=== PATIENT | male | born 1940 | race Caucasian/White ===

== ENCOUNTER 2018-06-17 11:30 | Outpatient (RCR) | payer SELFPAY | END 2018-06-18 23:59 | disposition home or self-care (01) | LOC: CR 11:30 | PROVIDERS: PCP Family Medicine; Visit Provider Family Medicine | DX: Z51.89 Encounter for other specified aftercare (principal) ==

== ENCOUNTER 2018-06-21 03:12 | Outpatient (RCR) | payer SELFPAY | END 2018-07-18 23:59 | disposition home or self-care (01) | LOC: CR 03:12 | PROVIDERS: PCP Family Medicine; Visit Provider Family Medicine | DX: Z51.89 Encounter for other specified aftercare (principal) ==

== ENCOUNTER 2018-07-15 07:00 | Outpatient (RCR) | payer SELFPAY | END 2018-07-18 23:59 | disposition home or self-care (01) | LOC: CR 07:00 | PROVIDERS: PCP Family Medicine; Visit Provider Family Medicine | DX: Z51.89 Encounter for other specified aftercare (principal) ==

== ENCOUNTER 2018-08-17 07:00 | Outpatient (RCR) | payer SELFPAY | END 2018-08-18 23:59 | disposition home or self-care (01) | LOC: CR 07:00 | PROVIDERS: PCP Family Medicine; Visit Provider Family Medicine | DX: Z51.89 Encounter for other specified aftercare (principal) ==

== ENCOUNTER 2018-09-14 07:00 | Outpatient (RCR) | payer SELFPAY | END 2018-09-17 23:59 | disposition home or self-care (01) | LOC: CR 07:00 | PROVIDERS: PCP Family Medicine; Visit Provider Family Medicine | DX: Z51.89 Encounter for other specified aftercare (principal) ==

== ENCOUNTER 2018-10-14 15:02 | Outpatient (RCR) | payer SELFPAY | END 2018-10-18 23:59 | disposition home or self-care (01) | LOC: CR 15:02 | PROVIDERS: PCP Family Medicine; Visit Provider Family Medicine | DX: Z51.89 Encounter for other specified aftercare (principal) ==

== ENCOUNTER 2018-10-26 10:48 | Outpatient (REF) | payer MEDICARE, SELFPAY ==
[2018-10-26 21:32] LABS: Anion Gap 9.6 mmol/L (3-11); BUN 28 mg/dL (7-18); CO2 28.4 mmol/L (21.0-32.0); CREATININE 1.38 mg/dL (0.70-1.30); Calcium 9.7 mg/dL (8.5-10.1); Chloride 104 mmol/L (98-107); Glucose 106 mg/dL (70-100); Potassium 4.5 mmol/L (3.5-5.1); Sodium 142 mmol/L (136-145)
[2018-10-26 22:53] LABS: Hemoglobin A1C 5.1 % (4.5-6.2)
== END 2018-10-26 11:08 ==
LOC: NCHCN 10:48
PROVIDERS: PCP Family Medicine; Visit Provider Family Medicine
DX: I10 Essential (primary) hypertension (principal); R73.9 Hyperglycemia, unspecified; R91.8 Other nonspecific abnormal finding of lung field
CPT/HCPCS: 80048; 83036

== ENCOUNTER 2018-11-05 09:18 | Outpatient (REF) | payer MEDICARE, SELFPAY ==
[2018-11-05 19:32] LABS: CREATININE 1.24 mg/dL (0.70-1.30); Estimated GFR 56.68 (mL/min/1.73m2)
== END 2018-11-05 09:38 ==
LOC: NCHCN 09:18
PROVIDERS: PCP Family Medicine; Visit Provider Family Medicine
DX: I10 Essential (primary) hypertension (principal)
CPT/HCPCS: 82565

== ENCOUNTER 2018-11-12 00:38 | Outpatient (CLI) | payer MEDICARE, SELFPAY ==
--- NOTE | 2018-11-12 09:32 | DI.CT_ITS ---
SYMPTOMS/DIAGNOSIS: LUNG NODULE, R91.8 CT SCAN OF THE CHEST: CT scan of the chest was performed following the uneventful administration of intravenous contrast material. Comparison examination is 06/09/16. The visualized thyroid gland appears grossly unremarkable. There is atherosclerosis of the thoracic aorta but no aneurysmal dilatation is present. The heart size is within normal limits. No significant pericardial effusion is seen. Coronary artery calcifications are present. No evidence of significant thoracic adenopathy is appreciated. No pleural effusion or pneumothorax is identified. Note is made of an infrarenal abdominal aortic aneurysm measuring 4.7 cm transverse by 4.7 cm AP. Note is made of diverticulosis of the colon but no evidence of acute diverticulitis. The patient is status post cholecystectomy. No noncalcified pulmonary nodules are seen. There are mild central lobular and paraseptal emphysematous changes in the lungs. There is scarring in the left lingula. No focal consolidating infiltrates are present. Mild dependent atelectatic changes are seen in the lung bases. The tracheobronchial tree is unremarkable. Degenerative changes are seen in the spine. There is a left convex scoliosis of the thoracolumbar spine. There is an old stable compression deformity in a mid thoracic vertebral body. IMPRESSION: 1. No evidence of a pulmonary nodule or thoracic adenopathy. 2. Mild pulmonary emphysema. 3. 4.7 cm infrarenal abdominal aortic aneurysm.
[2018-11-12] MEDS: Omnipaque 350 MG/ML 100 ML BTL IJ (09:35)
[2018-11-12] MEDS: Normal Saline Flush 10 ML SYR IVP ×2 (09:36)
== END 2018-11-12 00:58 ==
PROVIDERS: PCP Family Medicine; Visit Provider Family Medicine
DX: R91.8 Other nonspecific abnormal finding of lung field (principal); I71.4 Abdominal aortic aneurysm, without rupture; K57.30 Diverticulosis of large intestine without perforation or abscess without bleeding; J43.9 Emphysema, unspecified
CPT/HCPCS: 71260; J3490

== ENCOUNTER 2018-11-18 07:00 | Outpatient (RCR) | payer SELFPAY | END 2018-11-18 23:59 | disposition home or self-care (01) | LOC: CR 07:00 | PROVIDERS: PCP Family Medicine; Visit Provider Family Medicine | DX: Z51.89 Encounter for other specified aftercare (principal) ==

== ENCOUNTER 2018-12-16 12:39 | Outpatient (RCR) | payer SELFPAY | END 2018-12-16 23:59 | disposition home or self-care (01) | LOC: CR 12:39 | PROVIDERS: PCP Family Medicine; Visit Provider Family Medicine | DX: Z51.89 Encounter for other specified aftercare (principal) ==

== ENCOUNTER 2019-01-13 07:00 | Outpatient (RCR) | payer SELFPAY | END 2019-01-16 23:59 | disposition home or self-care (01) | LOC: CR 07:00 | PROVIDERS: PCP Family Medicine; Visit Provider Family Medicine | DX: Z51.89 Encounter for other specified aftercare (principal) ==

== ENCOUNTER 2019-02-15 07:00 | Outpatient (RCR) | payer SELFPAY | END 2019-02-15 23:59 | disposition home or self-care (01) | LOC: CR 07:00 | PROVIDERS: PCP Family Medicine; Visit Provider Family Medicine | DX: Z51.89 Encounter for other specified aftercare (principal) ==

== ENCOUNTER 2019-03-17 07:00 | Outpatient (RCR) | payer SELFPAY | END 2019-03-18 23:59 | disposition home or self-care (01) | LOC: CR 07:00 | PROVIDERS: PCP Family Medicine; Visit Provider Family Medicine | DX: Z51.89 Encounter for other specified aftercare (principal) ==

== ENCOUNTER 2019-04-14 11:19 | Outpatient (RCR) | payer SELFPAY | END 2019-04-17 23:59 | disposition home or self-care (01) | LOC: CR 11:19 | PROVIDERS: PCP Family Medicine; Visit Provider Family Medicine | DX: Z51.89 Encounter for other specified aftercare (principal) ==

== ENCOUNTER 2019-04-18 12:24 | Outpatient (RCR) | payer SELFPAY | END 2019-05-18 23:59 | disposition home or self-care (01) | LOC: CR 12:24 | PROVIDERS: PCP Family Medicine; Visit Provider Family Medicine | DX: Z51.89 Encounter for other specified aftercare (principal) ==

== ENCOUNTER 2019-05-15 10:14 | Emergency (ER) | payer MEDICARE, SELFPAY ==
[2019-05-15] VITALS (18 sets, daily range): BP systolic 109–128; BP diastolic 68–78; PULSE 66–118; RESP 15; TEMP 37.6; O2SAT 95–100
--- NOTE | 2019-05-15 10:19 | NUR.NOTE ---
Nursing Note: pt had stents placed in his left renal artery on the . catheter removed no complications void test passed on Thursday pt developed bilateral flank pain that has progressed to today 06/28
--- NOTE | 2019-05-15 10:37 | DI.CT_ITS ---
SYMPTOM/DIAGNOSIS: FEVER, RECENT AAA REPAIR, RECENT FRANCES, ? PYELO CT ABDOMEN AND PELVIS: CT abdomen and pelvis was performed following the uneventful administration of intravenous contrast material. No acute findings are seen in the lung bases. The liver is normal in size. No suspicious hepatic mass is seen. There is focal fatty infiltration adjacent to the hepatic ligamentum teres. The portal, superior mesenteric and splenic veins are patent. The patient is status post cholecystectomy. Stable mild dilatation of the common bile duct. The pancreas and peripancreatic soft tissues are unremarkable as are the spleen and adrenal glands. The kidneys show normal and symmetric enhancement. There are multiple hypodensities in the kidneys. They are too small for further characterization but likely reflect cysts. There is focal thickening and air and fluid seen in the superior aspect of the urinary bladder. There is air seen within the urinary bladder which may represent recent catheterization. There is an unruptured 5.4 x 5.2 cm infra-renal abdominal aortic aneurysm. This lies just proximal to the aortic and right iliac stents. There is an air fluid collection overlying the right iliopsoas muscle measuring 8.2 x 5.5 x 8.1 cm. There does not appear to be any high density material within the fluid collection to suggest contrast. There is extensive diverticulosis of the colon but no evidence of acute diverticulitis. The remainder of the bowel is unremarkable. No significant abdominal or pelvic adenopathy, ascites or pneumoperitoneum is present. There is a small fat containing umbilical hernia. Degenerative changes are seen in the spine. There is a right convex scoliotic curvature of the lumbar spine. The prostate gland is enlarged. Urology consult may be considered for further evaluation, IMPRESSION: 1. 8.2 x 5.5 x 8.1 cm air fluid collection anterior to the right iliopsoas muscle. This may represent a hematoma, abscess seroma or possible urinoma. 2. Air and fluid seen within the wall of the superior aspect of the urinary bladder. Infectious or inflammatory process should be considered. Abscess cannot be excluded. 3. Unruptured infero-abdominal aortic aneurysm measuring 5.4 x 5.2 cm. It lies just proximal to the aortic stent. 4. A distal aortic and right iliac artery stents. Results were discussed with Judy Kaminski of the Emergency Department on 05/16/19
--- NOTE | 2019-05-15 10:38 | ED.GENADUL_ITS ---
Discharge Plan Disposition Patient Disposition: [facility] Condition: Stable Discharge Details Chief Complaint: FlankPain Clinical Impression: Abscess, retroperitoneal Primary Care Provider: Sheila Fontanez V ED Provider: Ernst Schwab Home Meds and New Rx's Prescriptions: No Action aspirin [Lo-Dose Aspirin] 81 MG tablet,delayed release (DR/EC) 81 mg PO DAILY RF: 0 multivitamin Tablet 1 tab PO DAILY RF: 0 sertraline 100 mg Tablet 100 mg PO DAILY RF: 0 simvastatin 10 mg Tablet 10 mg PO DAILY RF: 0 nitroglycerin 0.4 mg Tablet, Sublingual 0.4 mg SUBLINGUAL Q5M PRNRF: 0 losartan-hydrochlorothiazide 50-12.5 mg Tablet 1 tab PO DAILY RF: 0 cephalexin 250 mg Tablet 250 mg PO BID RF: 0 acetaminophen 500 mg Tablet 500 mg PO Q4H PRNRF: 0 hydromorphone 2 mg Tablet 2 mg PO Q6H PRNRF: 0 ibuprofen 200 mg Tablet 200 mg PO Q6H PRNRF: 0 calcium carbonate [Calcium 600] 600 mg calcium (1,500 mg) Tablet 600 mg PO BID RF: 0 glucosamine sulfate 500 mg Capsule 500 mg PO BID RF: 0 docusate sodium [Colace] 100 mg Capsule 100 mg PO DAILY RF: 0 Medical Decision Making 79 yo mack with hx of cad, aaa, who underwent elective juxtarenal AAA repair on 05/03/19 at [facility] [place] and had a brian drain left in place and is on cephalexin until this is removed, and also had urinary retention so had san placed and had voiding trial last week with [facility] [place] urology that was successful, who comes in with bilateral pain at cva area for 2 days and a fever starting today. He arrives in no distress and states pain improved with tylenol and has no pain here. He denies abdominal pain or chest pain or cough. He does have bilateral cva tenderness on exam , no evidence of infection at his incision sites and serosanguinous fluid in the brian drain. I suspect urinary source for his symptoms of fever and flank pain, will obtain imaging to eval for other potential causes such as abscess in the abdomen. no cough or other symptoms to suggest pna pt's ua shows possible uti, will order cipro labs show wbc of 33, remains stable hd. CT shows retroperitoneal abscess so I changed cipro to zosyn to treat the abscess and also the possible uti. will discuss with [facility] [place] vascular spoke with vascular surgery fellow at [facility] [place] who wants patient to go to their ED so they can eval. Dr. Garces is the accepting ED provider for the transfer Differential Diagnosis pyelo, uti, abscess Medical Records Medical records reviewed: Yes I reviewed the patient's medical records. Imaging Data Radiologic Study: Attestation: I personally reviewed and interpreted this imaging study as follows: Imaging: CT Scan Radiologist's impression: IMPRESSION: 1. 8.2 x 5.5 x 8.1 cm fluid collection with bubbles of air anterior to the right iliopsoas may represent evolving hematoma or abscess or seroma.. 2. Unruptured infrarenal aortic aneurysm 5.36 x 5.22 cm. Just distal to the aneurysm is a aortic and right iliac bypass. 3. The prostate is enlarged, greater than 6 cm. Recommend urology consult. Lab Data Lab results reviewed: Yes I reviewed the patient's lab results. HPI General Mode of arrival: wheelchair . Date/Time Provider Initiated Documentation: 05/15/19 10:25 . Limitations to Documentation: no limitations . Information obtained by: patient . History of Present Illness 79 year old M presents to the emergency department with the chief complaint of fever, described as moderate, Patient started experiencing this day(s) (1) and it has been constant. No relieving factors improve symptom(s), Patient did receive the following treatments prior to arrival, none Related Data Home Medications Medication Instructions Recorded Confirmed aspirin [Lo-Dose Aspirin] 81 mg PO DAILY 08/24/13 05/15/19 acetaminophen 500 mg PO Q4H PRN 05/15/19 05/15/19 calcium carbonate [Calcium 600] 600 mg PO BID 05/15/19 05/15/19 cephalexin 250 mg PO BID 05/15/19 05/15/19 docusate sodium [Colace] 100 mg PO DAILY 05/15/19 05/15/19 glucosamine sulfate 500 mg PO BID 05/15/19 05/15/19 hydromorphone 2 mg PO Q6H PRN 05/15/19 05/15/19 ibuprofen 200 mg PO Q6H PRN 05/15/19 05/15/19 losartan-hydrochlorothiazide 1 tab PO DAILY 05/15/19 05/15/19 multivitamin 1 tab PO DAILY 05/15/19 05/15/19 nitroglycerin 0.4 mg SUBLINGUAL Q5M PRN 05/15/19 05/15/19 sertraline 100 mg PO DAILY 05/15/19 05/15/19 simvastatin 10 mg PO DAILY 05/15/19 05/15/19 Allergies Allergy/AdvReac Type Severity Reaction Status Date / Time codeine Allergy head fuzzy Unverified 05/15/19 10:24 meperidine HCl [From Demerol] Allergy confusion Unverified 05/15/19 10:24 Sulfa (Sulfonamide Allergy Agitation Unverified 05/15/19 10:24 Antibiotics) lisinopril AdvReac Mild cough Unverified 05/15/19 10:24 levofloxacin [From Levaquin] AdvReac Unverified 05/15/19 10:24 General Stated Complaint: FlankPain KIARA: 3 Review of Systems Review of Systems All systems reviewed & are unremarkable except as noted in HPI and below Constitutional Denies weakness Cardiovascular Denies chest pain and Denies dyspnea Respiratory Denies cough and Denies dyspnea Gastrointestinal Denies abdominal pain, Denies nausea and Denies vomiting Musculoskeletal Denies joint swelling Neurologic Denies weakness Psychiatric Denies depression PFSH Social History Smoking/Tobacco Use Status: Former Tobacco Use Alcohol Intake: never Drug use: Never Substance use type: does not use Do you feel safe at home: Yes Do you feel safe in your relationship?: Yes Exam Const General: no acute distress Orientation: alert HENMT Head: normal to inspection Ears: external ears normal General nose exam: external nose normal Mouth: moist mucous membranes Eyes General: appearance normal, both eyes and all related structures Neck Neck: normal visual inspection Resp Effort & Inspection: normal respiratory effort and able to speak in complete sentences Cardio Rate: regular rate Skin General skin exam: no rashes or lesions noted Neuro General: alert and oriented x3 Extrem General: normal to inspection Psych Mental Status: mental status grossly normal Course Vital Signs Temperature 37.6 C H 05/15/19 10:22 Pulse 66 05/15/19 10:22 Respiratory Rate 15 05/15/19 10:22 Blood Pressure 115/68 05/15/19 10:22 Pulse Oximetry 98 05/15/19 10:22 Temperature 37.6 C H 05/15/19 10:22 Temperature Source Oral 05/15/19 10:22 Pulse 66 05/15/19 10:22 Respiratory Rate 15 05/15/19 10:22 Respiratory Effort 05/15/19 10:25 Blood Pressure 115/68 05/15/19 10:22 Blood Pressure Position Sitting 05/15/19 10:22 Pulse Oximetry 98 05/15/19 10:22 Oxygen Delivery Method Room Air 05/15/19 10:22 Oxygen Flow Rate 0 05/15/19 10:22 Pain Level 9 05/15/19 10:22 Lab/Test Results Lab/Test Results: 05/15/19 10:28 Urine - Bladder Aspirate Urine Culture - Pending
[2019-05-15 10:39] LABS: Bilirubin Negative (Negative); Blood Moderate (Negative); Clarity Cloudy (Clear); Glucose Negative (Negative); Ketones Negative (Negative); Leukocyte Esterase Large (Negative); Nitrite Negative (Negative); Specific Gravity 1.015 (1.005-1.025); Urobilinogen 0.2 EU/dL (Up TO 0.2); pH 6.5 (5-8)
[2019-05-15 10:53] LABS: C & S Indicated? C&S Done As Ordered; WBC >50 HPF (0-5)
[2019-05-15 10:57] LABS: Lactate-non-spesis 1.6 mmol/l (0.6-1.4)
[2019-05-15] MEDS: Normal Saline 1,000 ML 1000 ML IV (10:59)
[2019-05-15 11:02] LABS: Abs Immature Grans 0.17 k/cumm (0.0-0.09); Basophils % 0.1; HCT 35.7 % (40.0-50.0); HGB 12.4 g/dL (13.5-17.5); Immature Grans % 0.5; Lymphocytes % 2.3; Mean Corp. HGB Concentration 34.7 g/dL (32.0-36.0); Mean Corpuscular Hemoglobin 32.6 pg (27.0-33.0); Mean Corpuscular Volume 93.9 fL (80-95); Monocytes % 5.6; Neutrophils % 91.5; Platelet Count 399 x1000/uL (130-400); RBC Distribution Width 13.5 % (11.8-14.1)
[2019-05-15 11:08] LABS: Absolute Basophil Count 0.03 k/cumm (0.0-0.2); Absolute Lymphocyte Count 0.78 k/cumm (1.2-3.4); White Blood Cell Count 33.88 k/cumm (4.4-10.8)
[2019-05-15] MEDS: Omnipaque 350 MG/ML 100 ML BTL IJ (11:14)
[2019-05-15 11:16] LABS: Diff Comment Agrees w/ Instrument; RBC Morphology Normal
[2019-05-15 11:18] LABS: ALT 43 U/L (12-78); AST 24 U/L (15-37); Alkaline Phosphatase 102 U/L (46-116); Anion Gap 14.5 mmol/L (3-11); BUN 21 mg/dL (7-18); Bilirubin, Total 1.1 mg/dL (0.2-1.0); CO2 24.5 mmol/L (21.0-32.0); CREATININE 1.42 mg/dL (0.70-1.30); Calcium 9.6 mg/dL (8.5-10.1); Chloride 100 mmol/L (98-107); Estimated GFR 48.34 (mL/min/1.73m2); Glucose 157 mg/dL (70-100); Sodium 139 mmol/L (136-145); Total Protein 7.9 g/dL (6.4-8.2)
[2019-05-15 11:19] LABS: Potassium 2.9 mmol/L (3.5-5.1)
--- NOTE | 2019-05-15 11:39 | DI.VRAD_ITS ---
EXAM: CT Abdomen and Pelvis With Contrast EXAM DATE/TIME: 05/15/2019 10:38 AM CLINICAL HISTORY: 79 years old, male; Fever and other: Recent aa repair; Prior surgery; Surgery type: Aa repair, recent san TECHNIQUE: Imaging protocol: Axial computed tomography images of the abdomen and pelvis with intravenous contrast. Coronal and sagittal reformatted images were created and reviewed. COMPARISON: CR RT HIP COMPLETE AP PELVIS 02/28/2014 9:40 AM FINDINGS: Liver: Normal. No mass. Gallbladder and bile ducts: Cholecystectomy Pancreas: Normal. No ductal dilation. Spleen: Normal. No splenomegaly. Adrenals: Normal. No mass. Kidneys and ureters: Multiple low attenuation nodules in both kidneys. Some are cysts. Some are too small to characterize. Stomach and bowel: Significant diverticulosis of the colon. No martha diverticulitis. Appendix: No evidence of appendicitis. Intraperitoneal space: Normal. No free air. No significant fluid collection. Vasculature: Unruptured infrarenal aortic aneurysm 5.36 x 5.22 cm. Just distal to the aneurysm is a aortic and right iliac bypass. Lymph nodes: Normal. No enlarged lymph nodes. Bladder: Unremarkable as visualized. Reproductive: The prostate is enlarged, greater than 6 cm. Recommend urology consult. Surgical clips in the scrotum Bones/joints: Malleable plate in the right acetabulum and right iliac wing Significant dextroscoliosis Severe degenerative changes in the right hip Soft tissues: 8.2 x 5.5 x 8.1 cm fluid collection with bubbles of air anterior to the right iliopsoas may represent evolving hematoma or abscess or seroma.. Umbilical hernia contains fat THIS REPORT CONTAINS FINDINGS THAT MAY BE CRITICAL TO PATIENT CARE. The findings were verbally communicated via telephone conference with Ernst Schwab at 11:37 AM EDT on 05/15/2019. The findings were acknowledged and understood. Dr Schwab states the patient has an elevated white cell count and fever so etiology most likely is abscess IMPRESSION: 1. 8.2 x 5.5 x 8.1 cm fluid collection with bubbles of air anterior to the right iliopsoas may represent evolving hematoma or abscess or seroma.. 2. Unruptured infrarenal aortic aneurysm 5.36 x 5.22 cm. Just distal to the aneurysm is a aortic and right iliac bypass. 3. The prostate is enlarged, greater than 6 cm. Recommend urology consult. Dictated and Authenticated by: John Nolan MD. Ordering:NIGEL Dukes MD
[2019-05-15] MEDS: Potassium Chloride 20 MEQ TABCR 40 MEQ PO (12:00)
[2019-05-15] MEDS: POTASSIUM CHLORIDE 10 MEQ/100 ML BAG 100 MEQ IVPB (12:00)
[2019-05-15] MEDS: PIPERACILLIN/TAZO 4.5 GM in Normal Saline 100 ML IVPB (12:00)
--- NOTE | 2019-05-16 10:10 | NUR.NOTE ---
Radiology over read by Dr. Weiss faxed to [facility] [place] [address]. [phone].Nursing Note:
--- NOTE | 2019-05-17 07:34 | NUR.NOTE ---
Blood culture result faxed to [facility] [place] [address] [phone].Nursing Note:
--- NOTE | 2019-05-18 17:28 | NUR.NOTE ---
Nursing Note: [place] [facility] [place] culture result. Anahi Oliveira [phone]
--- NOTE | 2019-05-22 08:06 | NUR.NOTE ---
Patient transferred to [facility] [place] [address]. Faxed blood culture sensitivities to [phone].Nursing Note:
== END 2019-05-15 13:10 | disposition short-term general hospital (02) ==
LOC: ER 12:53
PROVIDERS: Emergency Provider Emergency Medicine; PCP Family Medicine
DX: K68.19 Other retroperitoneal abscess (principal); I71.4 Abdominal aortic aneurysm, without rupture; R33.8 Other retention of urine; N40.1 Benign prostatic hyperplasia with lower urinary tract symptoms; Z98.890 Other specified postprocedural states
CPT/HCPCS: 36415; 80053; 87040; 87077; 96361; 96365; 96368; 99285; 74177; 81003; 81015; 83605; 83735; 85025; 87086; 87186; 99284; J2543; J3480; J3490

== ENCOUNTER 2019-07-12 09:32 | Outpatient (REF) | payer MEDICARE, SELFPAY ==
[2019-07-12 21:43] LABS: HCT 38.1 % (40.0-50.0); HGB 12.8 g/dL (13.5-17.5); Mean Corp. HGB Concentration 33.6 g/dL (32.0-36.0); Mean Corpuscular Hemoglobin 31.1 pg (27.0-33.0); Mean Corpuscular Volume 92.7 fL (80-95); Mean Platelet Volume 11.6 fL (8.0-11.0); Platelet Count 248 x1000/uL (130-400); RBC 4.11 m/cumm (4.50-6.00); RBC Distribution Width 14.6 % (11.8-14.1); White Blood Cell Count 9.53 k/cumm (4.4-10.8)
[2019-07-12 22:05] LABS: Anion Gap 12.3 mmol/L (3-11); BUN 18 mg/dL (7-18); CO2 24.7 mmol/L (21.0-32.0); CREATININE 1.04 mg/dL (0.70-1.30); Calcium 9.4 mg/dL (8.5-10.1); Chloride 104 mmol/L (98-107); Glucose 105 mg/dL (70-100); Potassium 3.6 mmol/L (3.5-5.1); Sodium 141 mmol/L (136-145)
== END 2019-07-12 09:52 ==
LOC: NCHCN 09:32
PROVIDERS: PCP Family Medicine; Visit Provider Family Medicine
DX: E87.6 Hypokalemia (principal); R73.9 Hyperglycemia, unspecified; I25.10 Atherosclerotic heart disease of native coronary artery without angina pectoris; I73.9 Peripheral vascular disease, unspecified
CPT/HCPCS: 80048; 85027

== ENCOUNTER 2019-08-18 11:59 | Outpatient (RCR) | payer SELFPAY | END 2019-08-18 23:59 | disposition home or self-care (01) | LOC: CR 11:59 | PROVIDERS: PCP Family Medicine; Visit Provider Family Medicine | DX: Z51.89 Encounter for other specified aftercare (principal) ==

== ENCOUNTER 2019-09-13 15:13 | Outpatient (RCR) | payer SELFPAY | END 2019-09-17 23:59 | disposition home or self-care (01) | LOC: CR 15:13 | PROVIDERS: PCP Family Medicine; Visit Provider Family Medicine | DX: Z51.89 Encounter for other specified aftercare (principal) ==

== ENCOUNTER 2019-10-13 07:00 | Outpatient (RCR) | payer SELFPAY | END 2019-10-18 23:59 | disposition home or self-care (01) | LOC: CR 07:00 | PROVIDERS: PCP Family Medicine; Visit Provider Family Medicine | DX: Z51.89 Encounter for other specified aftercare (principal) ==

== ENCOUNTER 2019-11-17 07:00 | Outpatient (RCR) | payer SELFPAY | END 2019-11-18 23:59 | disposition home or self-care (01) | LOC: CR 07:00 | PROVIDERS: PCP Family Medicine; Visit Provider Family Medicine | DX: Z51.89 Encounter for other specified aftercare (principal) ==

== ENCOUNTER 2019-12-15 07:00 | Outpatient (RCR) | payer SELFPAY | END 2019-12-17 23:59 | disposition home or self-care (01) | LOC: CR 07:00 | PROVIDERS: PCP Family Medicine; Visit Provider Family Medicine | DX: Z51.89 Encounter for other specified aftercare (principal) ==

== ENCOUNTER 2019-12-27 07:00 | Outpatient (RCR) | payer SELFPAY | END 2020-01-17 23:59 | disposition home or self-care (01) | LOC: CR 07:00 | PROVIDERS: PCP Family Medicine; Visit Provider Family Medicine | DX: Z51.89 Encounter for other specified aftercare (principal) ==

== ENCOUNTER 2020-04-02 12:27 | Outpatient (REF) | payer MEDICARE, SELFPAY ==
--- NOTE | 2020-04-02 15:10 | SKI_PTH ---
PATIENT: Carlos Parekh I LOC: [facility] U#:[id number] AGE/SX: 80/M ROOM: RE04/02/[address]: Feliberto Wilson DO : 1940 BED: DIS: 04/02/2020 SPEC #: [id number] RECD: 04/03/20 12:31 STATUS: ALISHA REQ #: [id number] [place]: 04/02/20 15:[address]: Feliberto Wilson DEPT: Surgical Specimen RECD BY: Tina Young ENTERED: 04/03/20 12:32 SP TYPE: SKI OTHR DR: Sheila Fontanez V Tissues: 1 - SKIN BIOPSY(SHAVE/PUNCH) 2 - SKIN BIOPSY(SHAVE/PUNCH) Procedures: SKIN LEVEL 4 Comments: [id number]
== END 2020-04-02 12:47 ==
LOC: LBN 12:27
PROVIDERS: PCP Family Medicine; Visit Provider Otolaryngology Otolaryngology/Facial Plastic Surgery
DX: C44.222 Squamous cell carcinoma of skin of right ear and external auricular canal (principal); C44.212 Basal cell carcinoma of skin of right ear and external auricular canal
CPT/HCPCS: 88305

== ENCOUNTER 2021-01-31 16:54 | Outpatient (REF) | payer MEDICARE, SELFPAY ==
[2021-01-31 15:40] LABS: HCT 42.1 % (40.0-50.0); HGB 14.5 g/dL (13.5-17.5)
[2021-01-31 16:02] LABS: Hemoglobin A1C 4.9 % (<5.7)
[2021-01-31 16:04] LABS: ALT 20 U/L (16-63); AST 25 U/L (15-37); Albumin 4.3 g/dL (3.4-5.0); Alkaline Phosphatase 106 U/L (46-116); Anion Gap 11.5 mmol/L (3-11); BUN 25 mg/dL (7-18); Bilirubin, Total 0.7 mg/dL (0.2-1.0); CO2 27.5 mmol/L (21.0-32.0); CREATININE 1.2 mg/dL (0.70-1.30); Calcium 9.5 mg/dL (8.5-10.1); Chloride 106 mmol/L (98-107); Estimated GFR 58.56 (mL/min/1.73m2); Glucose 96 mg/dL (74-106); Potassium 4.1 mmol/L (3.5-5.1); Sodium 145 mmol/L (136-145); Total Protein 8.1 g/dL (6.4-8.2)
[2021-01-31 22:39] LABS: PSA, Screening 5.7 ng/mL (0.0-6.5)
== END 2021-01-31 16:55 | disposition home or self-care (01) ==
LOC: NCHCN 16:54
PROVIDERS: PCP Family Medicine; Visit Provider Family Medicine
DX: E78.5 Hyperlipidemia, unspecified (principal); I25.10 Atherosclerotic heart disease of native coronary artery without angina pectoris; E87.6 Hypokalemia; I10 Essential (primary) hypertension; Z00.00 Encounter for general adult medical examination without abnormal findings; Z12.5 Encounter for screening for malignant neoplasm of prostate; R79.89 Other specified abnormal findings of blood chemistry
CPT/HCPCS: 80053; 84153; 83036; 84443; 85014; 85018

== ENCOUNTER 2021-04-16 08:00 | Outpatient (RCR) | payer SELFPAY ==
[2021-03-21 07:53] VITALS: BP 152/89; PULSE 96
[2021-03-26 07:59] VITALS: BP 149/80; PULSE 71
[2021-03-28 07:59] VITALS: BP 154/74; PULSE 67
[2021-04-02 08:05] VITALS: BP 153/63; PULSE 65
[2021-04-04 07:54] VITALS: BP 166/76; PULSE 55
[2021-04-09 07:59] VITALS: BP 147/72; PULSE 60
[2021-04-11 08:05] VITALS: BP 148/72; PULSE 67
[2021-04-16 08:04] VITALS: BP 117/73; PULSE 64
== END 2021-04-17 23:59 | disposition home or self-care (01) ==
LOC: CR 08:00
PROVIDERS: PCP Family Medicine; Visit Provider Family Medicine
DX: Z51.89 Encounter for other specified aftercare (principal)

== ENCOUNTER 2021-05-16 08:00 | Outpatient (RCR) | payer SELFPAY ==
[2021-04-18 00:25] VITALS: BP 117/73; PULSE 64
[2021-04-18 08:05] VITALS: BP 148/61; PULSE 61
[2021-04-23 07:52] VITALS: BP 151/79; PULSE 63; O2SAT 99
[2021-04-25 08:02] VITALS: BP 168/72
[2021-04-30 08:06] VITALS: BP 162/73; PULSE 66
[2021-05-02 08:13] VITALS: BP 167/82; PULSE 72
[2021-05-07 08:07] VITALS: BP 158/79; PULSE 72
[2021-05-09 08:10] VITALS: BP 164/89; PULSE 60
[2021-05-14 08:01] VITALS: BP 151/84; PULSE 56
[2021-05-16 07:57] VITALS: BP 148/78; PULSE 62
== END 2021-05-18 23:59 | disposition home or self-care (01) ==
LOC: CR 08:00
PROVIDERS: PCP Family Medicine; Visit Provider Family Medicine
DX: Z51.89 Encounter for other specified aftercare (principal)

== ENCOUNTER 2021-06-13 02:09 | Outpatient (CLI) | payer MEDICARE, SELFPAY ==
--- NOTE | 2021-06-13 | DI.DEXA_ITS ---
Exam(s) XR DEXA BONE DENSITY W/WO VALDO EXAM: XR DEXA BONE DENSITY W/WO VALDO CLINICAL HISTORY: OSTEOPENIA, M85.88 TECHNIQUE: Routine DEXA evaluation of the lumbar spine, hip, or forearm. COMPARISON: Prior DXA scans 2008 2015 FINDINGS: Performed on a HoloLabfolder unit. Lateral image: No compression fracture evident. Aortic EVAR noted. Lumbar Spine total T-score: 1.8. Prior reading in 2016 was -0.8 Hip total T-score:-1.9. Prior 2016 reading was -1.5 Independent reading at the femoral neck yields a T-score of -2.7 Forearm total T-score: -1.7 IMPRESSION: Bone mineral density measures in the osteoporosis range. Fracture risk is high. Note: Any spine fracture indicates 5x risk for subsequent spine fracture and 2x risk for subsequent h ip fracture. World Health Organization criteria for BMD interpretation classify patients: Normal...... T- Score at or above -1.0 Osteopenic... T- Score between -1.0 and -2.5 Osteoporosis... T-Score at or below -2.5
== END 2021-06-13 02:29 ==
PROVIDERS: PCP Family Medicine; Visit Provider Family Medicine
DX: Z13.820 Encounter for screening for osteoporosis (principal); M85.89 Other specified disorders of bone density and structure, multiple sites; M81.0 Age-related osteoporosis without current pathological fracture
CPT/HCPCS: 77080

== ENCOUNTER 2021-06-18 08:00 | Outpatient (RCR) | payer SELFPAY ==
[2021-05-19 00:24] VITALS: BP 148/78; PULSE 62
[2021-05-21 08:26] VITALS: BP 156/81; PULSE 62
[2021-05-23 08:12] VITALS: BP 163/75; PULSE 63
[2021-05-28 08:42] VITALS: BP 136/82; PULSE 63
[2021-05-30 07:57] VITALS: BP 133/72; PULSE 62
[2021-06-04 08:00] VITALS: BP 150/82; PULSE 58
[2021-06-06 08:16] VITALS: BP 148/79; PULSE 74
[2021-06-11 08:05] VITALS: BP 137/73; PULSE 61
[2021-06-13 08:06] VITALS: BP 162/81; PULSE 59
[2021-06-18 08:10] VITALS: BP 157/77; PULSE 58
== END 2021-06-18 23:59 | disposition home or self-care (01) ==
LOC: CR 08:00
PROVIDERS: PCP Family Medicine; Visit Provider Family Medicine
DX: Z51.89 Encounter for other specified aftercare (principal); Z95.5 Presence of coronary angioplasty implant and graft

== ENCOUNTER 2021-07-11 08:00 | Outpatient (RCR) | payer SELFPAY ==
[2021-06-19 00:11] VITALS: BP 157/77; PULSE 58
[2021-06-20 08:38] VITALS: BP 124/77; PULSE 58
[2021-06-25 08:01] VITALS: BP 145/82; PULSE 63
[2021-06-27 08:03] VITALS: BP 132/75; PULSE 76
[2021-07-02 08:31] VITALS: BP 138/78; PULSE 61
[2021-07-04 08:08] VITALS: BP 160/70; PULSE 65
[2021-07-09 07:56] VITALS: BP 121/67; PULSE 61
[2021-07-11 09:44] VITALS: BP 134/87; PULSE 70
== END 2021-07-18 23:59 | disposition home or self-care (01) ==
LOC: CR 08:00
PROVIDERS: PCP Family Medicine; Visit Provider Family Medicine
DX: Z51.89 Encounter for other specified aftercare (principal)

== ENCOUNTER 2021-08-06 09:37 | Outpatient (REF) | payer MEDICARE, SELFPAY ==
[2021-08-06 14:37] LABS: Anion Gap 10.9 mmol/L (3-11); BUN 24 mg/dL (7-18); CO2 28.1 mmol/L (21.0-32.0); CREATININE 1.2 mg/dL (0.70-1.30); Calcium 9.1 mg/dL (8.5-10.1); Chloride 105 mmol/L (98-107); Glucose 95 mg/dL (74-106); Potassium 4.1 mmol/L (3.5-5.1); Sodium 144 mmol/L (136-145)
[2021-08-06 22:11] LABS: PSA, Screening 4.8 ng/mL (0.0-6.5)
== END 2021-08-06 09:38 | disposition home or self-care (01) ==
LOC: NCHCN 09:37
PROVIDERS: PCP Family Medicine; Visit Provider Family Medicine
DX: Z12.5 Encounter for screening for malignant neoplasm of prostate (principal); I10 Essential (primary) hypertension; N40.0 Benign prostatic hyperplasia without lower urinary tract symptoms; E87.6 Hypokalemia
CPT/HCPCS: 80048; 84153

== ENCOUNTER 2021-08-15 08:00 | Outpatient (RCR) | payer SELFPAY ==
[2021-07-19 00:21] VITALS: BP 134/87; PULSE 70
[2021-08-01 09:17] VITALS: BP 157/83; PULSE 65
[2021-08-08 07:59] VITALS: BP 149/74; PULSE 65
[2021-08-13 07:56] VITALS: BP 165/82; PULSE 69
[2021-08-15 08:07] VITALS: BP 143/84; PULSE 69
== END 2021-08-18 23:59 | disposition home or self-care (01) ==
LOC: CR 08:00
PROVIDERS: PCP Family Medicine; Visit Provider Family Medicine
DX: Z51.89 Encounter for other specified aftercare (principal); R69 Illness, unspecified

== ENCOUNTER 2021-09-17 08:00 | Outpatient (RCR) | payer SELFPAY ==
[2021-08-19 00:24] VITALS: BP 143/84; PULSE 69
[2021-08-20 08:25] VITALS: BP 142/76; PULSE 64
[2021-08-22 07:58] VITALS: BP 112/71; PULSE 77
[2021-08-27 08:15] VITALS: BP 149/77; PULSE 68
[2021-08-29 08:13] VITALS: BP 139/80; PULSE 64
[2021-09-10 08:01] VITALS: BP 132/75; PULSE 66
[2021-09-17 09:31] VITALS: BP 153/90; PULSE 63
== END 2021-09-17 23:59 | disposition home or self-care (01) ==
LOC: CR 08:00
PROVIDERS: PCP Family Medicine; Visit Provider Family Medicine
DX: Z51.89 Encounter for other specified aftercare (principal); R69 Illness, unspecified

== ENCOUNTER 2021-10-17 08:00 | Outpatient (RCR) | payer SELFPAY ==
[2021-09-18 00:20] VITALS: BP 153/90; PULSE 63
[2021-09-19 08:32] VITALS: BP 129/74; PULSE 67
[2021-09-24 10:21] VITALS: BP 126/78; PULSE 61
[2021-09-26 08:18] VITALS: BP 138/54; PULSE 60
[2021-10-01 08:44] VITALS: BP 153/80; PULSE 64
[2021-10-03 08:14] VITALS: BP 144/77; PULSE 57
[2021-10-08 07:58] VITALS: BP 130/75; PULSE 65
[2021-10-10 08:58] VITALS: BP 152/83; PULSE 70
[2021-10-15 08:06] VITALS: BP 137/79; PULSE 68
[2021-10-17 08:51] VITALS: BP 132/71; PULSE 66
== END 2021-10-18 23:59 | disposition home or self-care (01) ==
LOC: CR 08:00
PROVIDERS: PCP Family Medicine; Visit Provider Family Medicine
DX: Z51.89 Encounter for other specified aftercare (principal)

== ENCOUNTER → 2021-10-17 10:36 | Outpatient (BNVA) | payer MEDICARE, SELFPAY | PROVIDERS: PCP Family Medicine; Referring Provider Physical Therapist; Visit Provider Student in an Organized Health Care Education/Training Program | DX: M16.51 Unilateral post-traumatic osteoarthritis, right hip (principal) | CPT/HCPCS: 99213 ==

== ENCOUNTER 2021-10-21 23:51 | Outpatient (RCR) | payer SELFPAY ==
[2021-10-22 08:03] VITALS: BP 141/79; PULSE 68
== END 2021-11-14 16:42 ==
LOC: CR 23:51
PROVIDERS: PCP Family Medicine; Visit Provider Family Medicine
DX: R69 Illness, unspecified (principal)

== ENCOUNTER 2022-01-14 08:00 | Outpatient (RCR) | payer SELFPAY ==
[2021-12-17 08:18] VITALS: BP 141/84; PULSE 71
[2021-12-19 08:14] VITALS: BP 148/72; PULSE 64
[2021-12-24 08:03] VITALS: BP 137/72; PULSE 63
[2021-12-26 08:18] VITALS: BP 135/73; PULSE 65; O2SAT 99
[2022-01-02 08:16] VITALS: BP 142/67; PULSE 57
[2022-01-07 07:50] VITALS: BP 141/72; PULSE 63; O2SAT 98
[2022-01-09 08:06] VITALS: BP 155/74; PULSE 63
[2022-01-14 08:01] VITALS: BP 148/74; PULSE 57; O2SAT 98
[2022-01-16 08:00] VITALS: BP 165/75; PULSE 60
== END 2022-01-16 23:59 | disposition home or self-care (01) ==
LOC: CR 08:00
PROVIDERS: PCP Family Medicine; Visit Provider Family Medicine
DX: R69 Illness, unspecified (principal)

== ENCOUNTER 2022-02-13 08:00 | Outpatient (RCR) | payer SELFPAY ==
[2022-01-17 00:06] VITALS: BP 165/75; PULSE 60
[2022-01-21 08:09] VITALS: BP 122/70; PULSE 61
[2022-01-23 08:06] VITALS: BP 148/67; PULSE 58
[2022-01-28 08:05] VITALS: BP 154/78; PULSE 64; O2SAT 98
[2022-01-30 08:16] VITALS: BP 152/72; PULSE 60
[2022-02-04 08:08] VITALS: BP 135/71; PULSE 58; O2SAT 97
[2022-02-06 08:08] VITALS: BP 144/72; PULSE 64; O2SAT 98
[2022-02-11 08:07] VITALS: BP 130/74; PULSE 62
[2022-02-13 08:12] VITALS: BP 143/73; PULSE 67
== END 2022-02-15 23:59 | disposition home or self-care (01) ==
LOC: CR 08:00
PROVIDERS: PCP Family Medicine; Visit Provider Internal Medicine Cardiovascular Disease
DX: R69 Illness, unspecified (principal)

== ENCOUNTER 2022-03-18 08:23 | Outpatient (RCR) | payer SELFPAY ==
[2022-02-16 00:03] VITALS: BP 143/73; PULSE 67
[2022-02-18 08:20] VITALS: BP 147/75; PULSE 57
[2022-02-20 08:09] VITALS: BP 128/76; PULSE 66
[2022-02-27 08:00] VITALS: BP 154/83; PULSE 69
[2022-03-11 08:11] VITALS: BP 164/76; PULSE 58
[2022-03-18 08:00] VITALS: BP 150/76; PULSE 68
== END 2022-03-18 23:59 | disposition home or self-care (01) ==
LOC: CR 08:23
PROVIDERS: PCP Family Medicine; Visit Provider Internal Medicine Cardiovascular Disease
DX: R69 Illness, unspecified (principal)

== ENCOUNTER 2022-04-17 15:04 | Outpatient (RCR) | payer SELFPAY ==
[2022-03-19 00:03] VITALS: BP 150/76; PULSE 68
[2022-03-20 08:08] VITALS: BP 129/74; PULSE 78
[2022-03-25 08:47] VITALS: BP 143/72; PULSE 64
[2022-03-27 08:13] VITALS: BP 167/72; PULSE 61
[2022-04-01 08:10] VITALS: BP 151/81; PULSE 70
[2022-04-03 08:54] VITALS: BP 133/73; PULSE 73
[2022-04-08 08:08] VITALS: BP 120/74; PULSE 64
[2022-04-10 08:19] VITALS: BP 144/80; PULSE 69
[2022-04-15 08:06] VITALS: BP 136/83; PULSE 81
[2022-04-17 08:16] VITALS: BP 140/75; PULSE 71
== END 2022-04-17 23:59 | disposition home or self-care (01) ==
LOC: CR 15:04
PROVIDERS: PCP Family Medicine; Visit Provider Internal Medicine Cardiovascular Disease
DX: R69 Illness, unspecified (principal)

== ENCOUNTER 2022-05-09 20:42 | Outpatient (REF) | payer MEDICARE, SELFPAY ==
[2022-05-09 16:01] LABS: Hemoglobin A1C 5.1 % (<5.7)
[2022-05-09 16:34] LABS: ALT 20 U/L (16-63); AST 27 U/L (15-37); Albumin 4.2 g/dL (3.4-5.0); Alkaline Phosphatase 86 U/L (46-116); Anion Gap 12.5 mmol/L (3-11); BUN 26 mg/dL (7-18); Bilirubin, Total 0.7 mg/dL (0.2-1.0); CO2 23.5 mmol/L (21.0-32.0); CREATININE 1.4 mg/dL (0.70-1.30); Calcium 9.2 mg/dL (8.5-10.1); Calculated LDL 100 mg/dL (<100); Chloride 102 mmol/L (98-107); Cholesterol 177 mg/dL (<200); Estimated GFR 48.76 (mL/min/1.73m2); Glucose 109 mg/dL (74-106); HDL Cholesterol 31 mg/dL (40-60); Sodium 138 mmol/L (136-145); TSH (W/Ref FT4) 1.78 uIU/mL (0.36-3.74); Total Protein 8.3 g/dL (6.4-8.2); Triglyceride 233 mg/dL (<150); Vitamin B12 626 pg/mL (193-986)
== END 2022-05-09 20:43 | disposition home or self-care (01) ==
LOC: LBN 20:42
PROVIDERS: PCP Family Medicine; Visit Provider Family Medicine
DX: E78.5 Hyperlipidemia, unspecified (principal); G62.9 Polyneuropathy, unspecified; I73.9 Peripheral vascular disease, unspecified; I10 Essential (primary) hypertension
CPT/HCPCS: 80053; 80061; 82607; 83036; 84443

== ENCOUNTER 2022-05-15 08:29 | Outpatient (RCR) | payer SELFPAY ==
[2022-04-22 08:09] VITALS: BP 139/72; PULSE 70
[2022-04-22 08:25] VITALS: BP 139/72; PULSE 70
[2022-04-24 08:35] VITALS: BP 139/79; PULSE 66
[2022-04-29 08:39] VITALS: BP 131/68; PULSE 64
[2022-05-01 08:58] VITALS: BP 127/73; PULSE 67
[2022-05-06 08:05] VITALS: BP 128/73; PULSE 65
[2022-05-08 08:08] VITALS: BP 133/74; PULSE 61
[2022-05-13 08:10] VITALS: BP 154/76; PULSE 62
[2022-05-15 08:04] VITALS: BP 133/81; PULSE 73
== END 2022-05-18 23:59 | disposition home or self-care (01) ==
LOC: CR 08:29
PROVIDERS: PCP Family Medicine; Visit Provider Internal Medicine Cardiovascular Disease
DX: R69 Illness, unspecified (principal)

== ENCOUNTER 2022-06-17 08:00 | Outpatient (RCR) | payer SELFPAY ==
[2022-05-19 00:02] VITALS: BP 133/81; PULSE 73
[2022-05-20 08:19] VITALS: BP 119/74; PULSE 62
[2022-05-22 08:04] VITALS: BP 138/82; PULSE 65
[2022-05-27 09:21] VITALS: BP 118/74; PULSE 65
[2022-05-29 08:52] VITALS: BP 126/74; PULSE 62
[2022-06-03 08:50] VITALS: BP 143/71; PULSE 64
[2022-06-05 08:07] VITALS: BP 137/77; PULSE 61
[2022-06-10 08:05] VITALS: BP 128/70; PULSE 63
[2022-06-12 07:59] VITALS: BP 123/67; PULSE 57
[2022-06-17 08:29] VITALS: BP 151/76; PULSE 66
== END 2022-06-18 23:59 | disposition home or self-care (01) ==
LOC: CR 08:00
PROVIDERS: PCP Family Medicine; Visit Provider Internal Medicine Cardiovascular Disease
DX: R69 Illness, unspecified (principal)

== ENCOUNTER 2022-07-17 08:13 | Outpatient (RCR) | payer SELFPAY ==
[2022-06-19 00:14] VITALS: BP 151/76; PULSE 66
[2022-06-19 08:19] VITALS: BP 125/70; PULSE 66
[2022-06-24 07:59] VITALS: BP 130/77; PULSE 67
[2022-06-26 07:57] VITALS: BP 150/76; PULSE 57
[2022-07-01 08:04] VITALS: BP 120/69; PULSE 63
[2022-07-03 07:59] VITALS: BP 131/73; PULSE 63
[2022-07-08 08:07] VITALS: BP 134/73; PULSE 58
[2022-07-10 07:49] VITALS: BP 142/82; PULSE 61
[2022-07-15 08:16] VITALS: BP 133/72; PULSE 59
[2022-07-17 08:05] VITALS: BP 132/74; PULSE 64
== END 2022-07-18 23:59 | disposition home or self-care (01) ==
LOC: CR 08:13
PROVIDERS: PCP Family Medicine; Visit Provider Internal Medicine Cardiovascular Disease
DX: R69 Illness, unspecified (principal)

== ENCOUNTER 2022-08-14 08:00 | Outpatient (RCR) | payer SELFPAY ==
[2022-07-19 00:08] VITALS: BP 132/74; PULSE 64
[2022-07-22 08:05] VITALS: BP 119/62; PULSE 65
[2022-07-29 07:57] VITALS: BP 128/77; PULSE 69
[2022-07-31 08:07] VITALS: BP 124/67; PULSE 55
[2022-08-05 08:02] VITALS: BP 122/68; PULSE 66
[2022-08-07 08:21] VITALS: BP 143/73; PULSE 63
[2022-08-12 08:12] VITALS: BP 139/77; PULSE 45
[2022-08-14 08:20] VITALS: BP 156/79; PULSE 59
== END 2022-08-18 23:59 | disposition home or self-care (01) ==
LOC: CR 08:00
PROVIDERS: PCP Family Medicine; Visit Provider Internal Medicine Cardiovascular Disease
DX: R69 Illness, unspecified (principal)
CPT/HCPCS: S9472

== ENCOUNTER 2022-09-16 08:00 | Outpatient (RCR) | payer SELFPAY ==
[2022-08-19 00:16] VITALS: BP 156/79; PULSE 59
[2022-08-19 11:33] VITALS: BP 130/75; PULSE 62
[2022-08-21 08:04] VITALS: BP 129/65; PULSE 59
[2022-08-26 09:07] VITALS: BP 144/83; PULSE 53
[2022-08-28 08:08] VITALS: BP 122/67; PULSE 58
[2022-09-02 08:00] VITALS: BP 138/71; PULSE 64
[2022-09-04 07:58] VITALS: BP 131/73; PULSE 64
[2022-09-16 08:32] VITALS: BP 155/69; PULSE 58
== END 2022-09-17 23:59 | disposition home or self-care (01) ==
LOC: CR 08:00
PROVIDERS: PCP Family Medicine; Visit Provider Internal Medicine Cardiovascular Disease
DX: R69 Illness, unspecified (principal)

== ENCOUNTER 2022-10-16 08:28 | Outpatient (RCR) | payer SELFPAY ==
[2022-09-18 00:08] VITALS: BP 155/69; PULSE 58
[2022-09-18 08:56] VITALS: BP 140/74; PULSE 58
[2022-09-25 08:00] VITALS: BP 122/72; PULSE 64
[2022-09-30 08:31] VITALS: BP 125/66; PULSE 57
[2022-10-02 07:56] VITALS: BP 141/81; PULSE 65
[2022-10-07 08:13] VITALS: BP 137/70; PULSE 64
[2022-10-09 08:08] VITALS: BP 132/67; PULSE 62
[2022-10-14 08:09] VITALS: BP 113/69; PULSE 71
[2022-10-16 08:43] VITALS: BP 129/76; PULSE 70
== END 2022-10-18 23:59 | disposition home or self-care (01) ==
LOC: CR 08:28
PROVIDERS: PCP Family Medicine; Visit Provider Internal Medicine Cardiovascular Disease
DX: R69 Illness, unspecified (principal)

== ENCOUNTER 2022-11-07 10:35 | Outpatient (REF) | payer MEDICARE, SELFPAY ==
[2022-11-07 15:49] LABS: Anion Gap 11.3 mmol/L (3-11); BUN 31 mg/dL (7-18); CO2 24.7 mmol/L (21.0-32.0); CREATININE 1.4 mg/dL (0.70-1.30); Calcium 10.2 mg/dL (8.5-10.1); Chloride 104 mmol/L (98-107); Estimated GFR 50.81 (mL/min/1.73m2); Glucose 116 mg/dL (74-106); Potassium 3.8 mmol/L (3.5-5.1); Sodium 140 mmol/L (136-145)
== END 2022-11-07 10:36 | disposition home or self-care (01) ==
LOC: NCHCN 10:35
PROVIDERS: PCP Family Medicine; Visit Provider Family Medicine
DX: N28.9 Disorder of kidney and ureter, unspecified (principal); I25.10 Atherosclerotic heart disease of native coronary artery without angina pectoris; Z95.828 Presence of other vascular implants and grafts
CPT/HCPCS: 80048

== ENCOUNTER 2022-11-18 08:00 | Outpatient (RCR) | payer SELFPAY ==
[2022-10-19 00:05] VITALS: BP 129/76; PULSE 70
[2022-10-21 08:00] VITALS: BP 113/66; PULSE 66
[2022-10-23 07:53] VITALS: BP 151/74; PULSE 58
[2022-10-28 08:06] VITALS: BP 134/82; PULSE 85
[2022-11-04 08:13] VITALS: BP 129/74; PULSE 62
[2022-11-06 08:03] VITALS: BP 133/75; PULSE 66
[2022-11-11 08:18] VITALS: BP 136/71; PULSE 60
[2022-11-13 08:23] VITALS: BP 141/70; PULSE 55
[2022-11-18 08:32] VITALS: BP 139/88; PULSE 74
== END 2022-11-18 23:59 | disposition home or self-care (01) ==
LOC: CR 08:00
PROVIDERS: PCP Family Medicine; Visit Provider Internal Medicine Cardiovascular Disease
DX: R69 Illness, unspecified (principal)

== ENCOUNTER 2023-01-15 08:04 | Outpatient (RCR) | payer SELFPAY ==
[2022-12-17 00:03] VITALS: BP 124/79; PULSE 62
[2022-12-18 08:22] VITALS: BP 131/77; PULSE 70
[2022-12-25 08:32] VITALS: BP 108/65; PULSE 60
[2023-01-01 08:01] VITALS: BP 108/70; PULSE 79
[2023-01-06 08:12] VITALS: BP 113/67; PULSE 63
[2023-01-08 08:11] VITALS: BP 142/73; PULSE 66
[2023-01-13 08:42] VITALS: BP 112/70; PULSE 69
[2023-01-15 08:08] VITALS: BP 124/68; PULSE 55
[2023-01-20 08:00] VITALS: BP 133/70; PULSE 63
== END 2023-01-16 23:59 | disposition home or self-care (01) ==
LOC: CR 08:04
PROVIDERS: PCP Family Medicine; Visit Provider Internal Medicine Cardiovascular Disease

== ENCOUNTER 2023-01-29 09:13 | Outpatient (REF) | payer MEDICARE, SELFPAY ==
[2023-01-29 15:57] LABS: Calcium 9.1 mg/dL (8.5-10.1)
[2023-01-29 16:26] LABS: ALT 21 U/L (16-63); AST 33 U/L (15-37); Alkaline Phosphatase 84 U/L (46-116); Anion Gap 9.4 mmol/L (3-11); BUN 26 mg/dL (7-18); Bilirubin, Direct 0.2 mg/dL (0.0-0.2); Bilirubin, Total 0.8 mg/dL (0.2-1.0); CO2 26.6 mmol/L (21.0-32.0); CREATININE 1.4 mg/dL (0.70-1.30); Chloride 105 mmol/L (98-107); Creatine Kinase 186 U/L (39-308); Estimated GFR 50.81 (mL/min/1.73m2); Glucose 112 mg/dL (74-106); Potassium 4.2 mmol/L (3.5-5.1); Sodium 141 mmol/L (136-145)
== END 2023-01-29 09:14 | disposition home or self-care (01) ==
LOC: NCHCN 09:13
PROVIDERS: PCP Family Medicine; Visit Provider Family Medicine
DX: E78.5 Hyperlipidemia, unspecified (principal)
CPT/HCPCS: 80053; 80076; 82550

== ENCOUNTER 2023-02-12 08:05 | Outpatient (RCR) | payer SELFPAY ==
[2023-01-17 00:16] VITALS: BP 124/68; PULSE 55
[2023-01-22 07:58] VITALS: BP 145/75; PULSE 58
[2023-01-27 08:03] VITALS: BP 130/73; PULSE 67
[2023-02-03 08:03] VITALS: BP 123/69; PULSE 59
[2023-02-05 08:29] VITALS: BP 160/77; PULSE 59
[2023-02-10 08:25] VITALS: BP 138/72; PULSE 66
[2023-02-12 08:12] VITALS: BP 139/70; PULSE 59
== END 2023-02-15 23:59 | disposition home or self-care (01) ==
LOC: CR 08:05
PROVIDERS: PCP Family Medicine; Visit Provider Internal Medicine Cardiovascular Disease
DX: R69 Illness, unspecified (principal)

== ENCOUNTER 2023-03-17 08:16 | Outpatient (RCR) | payer SELFPAY ==
[2023-02-16 00:07] VITALS: BP 139/70; PULSE 59
[2023-02-17 08:13] VITALS: BP 137/78; PULSE 66
[2023-02-19 08:27] VITALS: BP 134/76; PULSE 55
[2023-02-24 08:07] VITALS: BP 151/74; PULSE 53
[2023-02-26 08:05] VITALS: BP 148/71; PULSE 73
[2023-03-03 08:30] VITALS: BP 149/70; PULSE 58
[2023-03-05 08:11] VITALS: BP 141/73; PULSE 58
[2023-03-10 08:39] VITALS: BP 132/72; PULSE 59
[2023-03-12 08:34] VITALS: BP 151/78; PULSE 57
[2023-03-17 08:34] VITALS: BP 159/80; PULSE 56
== END 2023-03-18 23:59 | disposition home or self-care (01) ==
LOC: CR 08:16
PROVIDERS: PCP Family Medicine; Visit Provider Internal Medicine Cardiovascular Disease

== ENCOUNTER 2023-04-16 08:05 | Outpatient (RCR) | payer SELFPAY ==
[2023-03-24 09:15] VITALS: BP 135/76; PULSE 59
[2023-03-26 08:14] VITALS: BP 126/73; PULSE 55
[2023-03-31 08:24] VITALS: BP 127/71; PULSE 58
[2023-04-02 08:45] VITALS: BP 127/77; PULSE 64
[2023-04-07 08:12] VITALS: BP 128/66; PULSE 84
[2023-04-09 08:14] VITALS: BP 138/75; PULSE 58
[2023-04-14 08:29] VITALS: BP 143/72; PULSE 60
[2023-04-16 10:29] VITALS: BP 124/71; PULSE 61
== END 2023-04-17 23:59 | disposition home or self-care (01) ==
LOC: CR 08:05
PROVIDERS: PCP Family Medicine; Visit Provider Internal Medicine Cardiovascular Disease
DX: R69 Illness, unspecified (principal)

== ENCOUNTER 2023-05-14 07:59 | Outpatient (RCR) | payer SELFPAY ==
[2023-04-18 00:19] VITALS: BP 124/71; PULSE 61
[2023-04-23 08:07] VITALS: BP 141/72; PULSE 56
[2023-04-28 08:10] VITALS: BP 140/66; PULSE 63
[2023-04-30 08:32] VITALS: BP 128/53; PULSE 58
[2023-05-05 08:17] VITALS: BP 156/81; PULSE 60
[2023-05-07 08:11] VITALS: BP 158/90; PULSE 60
[2023-05-12 08:12] VITALS: BP 128/69; PULSE 70
[2023-05-14 08:25] VITALS: BP 134/88; PULSE 64
== END 2023-05-18 23:59 | disposition home or self-care (01) ==
LOC: CR 07:59
PROVIDERS: PCP Family Medicine; Visit Provider Internal Medicine Cardiovascular Disease
DX: R69 Illness, unspecified (principal)

== ENCOUNTER 2023-06-05 08:53 | Outpatient (REF) | payer MEDICARE, SELFPAY ==
[2023-06-05 16:00] LABS: HCT 43.3 % (40.0-50.0); HGB 15.6 g/dL (13.5-17.5); MCH 34.1 pg (27.0-33.0); MCV 95 fL (80-95); MPV 11.4 fL (8.0-11.0); Platelet Count 229 10^3/uL (130-400); RBC 4.57 10^6/uL (4.36-5.78); RDW 13.1 % (11.8-14.1); RDW-SD 45.5 fL; WBC 11.11 10^3/uL (4.4-10.8)
[2023-06-05 16:43] LABS: ALT 32 U/L (16-63); AST 31 U/L (15-37); Albumin 4.4 g/dL (3.4-5.0); Alkaline Phosphatase 105 U/L (46-116); Anion Gap 13.1 mmol/L (3-11); BUN 28 mg/dL (7-18); Bilirubin, Total 1.1 mg/dL (0.2-1.0); CO2 24.9 mmol/L (21.0-32.0); CREATININE 1.4 mg/dL (0.70-1.30); Calcium 9.4 mg/dL (8.5-10.1); Calculated LDL 82 mg/dL (<100); Chloride 106 mmol/L (98-107); Cholesterol 154 mg/dL (<200); Estimated GFR 50.49 (mL/min/1.73m2); Glucose 105 mg/dL (74-106); HDL Cholesterol 34 mg/dL (40-60); Sodium 144 mmol/L (136-145); TSH (W/Ref FT4) 2.09 uIU/mL (0.36-3.74); Total Protein 7.9 g/dL (6.4-8.2); Triglyceride 193 mg/dL (<150)
== END 2023-06-05 08:54 | disposition home or self-care (01) ==
LOC: NCHCN 08:53
PROVIDERS: PCP Family Medicine; Visit Provider Family Medicine
DX: E78.5 Hyperlipidemia, unspecified (principal); N28.9 Disorder of kidney and ureter, unspecified; I25.10 Atherosclerotic heart disease of native coronary artery without angina pectoris; I73.9 Peripheral vascular disease, unspecified; R53.83 Other fatigue; I95.9 Hypotension, unspecified
CPT/HCPCS: 80053; 80061; 85027; 84443

== ENCOUNTER 2023-06-18 08:05 | Outpatient (RCR) | payer SELFPAY ==
[2023-05-19 00:16] VITALS: BP 134/88; PULSE 64
[2023-05-19 08:21] VITALS: BP 133/67; PULSE 59
[2023-05-21 08:04] VITALS: BP 137/73; PULSE 61
[2023-05-26 08:17] VITALS: BP 160/75; PULSE 59
[2023-06-02 08:32] VITALS: BP 139/75; PULSE 58
[2023-06-04 08:34] VITALS: BP 148/68; PULSE 59
[2023-06-09 08:05] VITALS: BP 125/79; PULSE 65
[2023-06-11 08:13] VITALS: BP 113/74; PULSE 73
[2023-06-16 08:19] VITALS: BP 134/73; PULSE 63
[2023-06-18 08:10] VITALS: BP 137/76; PULSE 57
== END 2023-06-18 23:59 | disposition home or self-care (01) ==
LOC: CR 08:05
PROVIDERS: PCP Family Medicine; Visit Provider Internal Medicine Cardiovascular Disease
DX: R69 Illness, unspecified (principal)

== ENCOUNTER 2023-07-16 08:17 | Outpatient (RCR) | payer SELFPAY ==
[2023-06-19 00:21] VITALS: BP 137/76; PULSE 57
[2023-06-23 08:24] VITALS: BP 131/73; PULSE 59
[2023-06-25 08:26] VITALS: BP 116/70; PULSE 60
[2023-06-30 08:16] VITALS: BP 152/76; PULSE 57
[2023-07-02 10:27] VITALS: BP 135/74; PULSE 55
[2023-07-07 08:05] VITALS: BP 147/68; PULSE 67
[2023-07-09 08:11] VITALS: BP 140/78; PULSE 60
[2023-07-14 08:24] VITALS: BP 133/77; PULSE 60
[2023-07-16 08:24] VITALS: BP 132/80; PULSE 60
[2023-07-23 08:26] VITALS: BP 163/70; PULSE 61
== END 2023-07-18 23:59 | disposition home or self-care (01) ==
LOC: CR 08:17
PROVIDERS: PCP Family Medicine; Visit Provider Internal Medicine Cardiovascular Disease
DX: R69 Illness, unspecified (principal)

== ENCOUNTER 2023-08-18 08:03 | Outpatient (RCR) | payer SELFPAY ==
[2023-07-19 00:07] VITALS: BP 132/80; PULSE 60
[2023-07-21 08:12] VITALS: BP 169/50; PULSE 53
[2023-07-28 08:19] VITALS: BP 135/76; PULSE 72
[2023-07-30 08:50] VITALS: BP 123/76; PULSE 59
[2023-08-06 08:28] VITALS: BP 113/70; PULSE 70
[2023-08-11 08:32] VITALS: BP 152/7; PULSE 64
[2023-08-13 08:05] VITALS: BP 136/76; PULSE 55
[2023-08-18 08:17] VITALS: BP 151/81; PULSE 76
== END 2023-08-18 23:59 | disposition home or self-care (01) ==
LOC: CR 08:03
PROVIDERS: PCP Family Medicine; Visit Provider Internal Medicine Cardiovascular Disease
DX: R69 Illness, unspecified (principal)

== ENCOUNTER 2023-09-17 08:00 | Outpatient (RCR) | payer SELFPAY ==
[2023-08-19 00:18] VITALS: BP 132/80; PULSE 60
[2023-08-20 08:16] VITALS: BP 163/71; PULSE 57
[2023-08-25 08:11] VITALS: BP 169/78; PULSE 55
[2023-08-27 08:47] VITALS: BP 120/76; PULSE 73
[2023-09-01 08:13] VITALS: BP 159/81; PULSE 63
[2023-09-03 08:01] VITALS: BP 151/73; PULSE 64
[2023-09-08 08:00] VITALS: BP 153/77; PULSE 60
[2023-09-15 08:17] VITALS: BP 120/70; PULSE 60
[2023-09-17 08:17] VITALS: BP 121/73; PULSE 71
== END 2023-09-17 23:59 | disposition home or self-care (01) ==
LOC: CR 08:00
PROVIDERS: PCP Family Medicine; Visit Provider Internal Medicine Cardiovascular Disease
DX: R69 Illness, unspecified (principal)

== ENCOUNTER 2023-10-15 08:05 | Outpatient (RCR) | payer SELFPAY ==
[2023-09-18 00:23] VITALS: BP 132/80; PULSE 60
[2023-09-22 08:00] VITALS: BP 153/79; PULSE 66
[2023-09-24 08:15] VITALS: BP 146/74; PULSE 56
[2023-10-01 10:57] VITALS: BP 129/51; PULSE 65
[2023-10-06 08:08] VITALS: BP 128/73; PULSE 59
[2023-10-08 07:57] VITALS: BP 125/74; PULSE 55
[2023-10-13 08:53] VITALS: BP 165/82; PULSE 79
[2023-10-15 08:13] VITALS: BP 161/74; PULSE 63
== END 2023-10-18 23:59 | disposition home or self-care (01) ==
LOC: CR 08:05
PROVIDERS: PCP Family Medicine; Visit Provider Internal Medicine Cardiovascular Disease
DX: R69 Illness, unspecified (principal)

== ENCOUNTER 2023-11-17 07:59 | Outpatient (RCR) | payer SELFPAY ==
[2023-10-19 00:22] VITALS: BP 132/80; PULSE 60
[2023-10-20 08:04] VITALS: BP 150/82; PULSE 63
[2023-10-22 08:05] VITALS: BP 133/80; PULSE 73
[2023-10-27 08:49] VITALS: BP 141/84; PULSE 58
[2023-10-29 11:04] VITALS: BP 143/86; PULSE 59
[2023-11-03 08:10] VITALS: BP 134/80; PULSE 72
[2023-11-05 08:45] VITALS: BP 132/72; PULSE 65
[2023-11-17 08:08] VITALS: BP 141/72; PULSE 59
== END 2023-11-18 23:59 | disposition home or self-care (01) ==
LOC: CR 07:59
PROVIDERS: PCP Family Medicine; Visit Provider Internal Medicine Interventional Cardiology
DX: R69 Illness, unspecified (principal)

== ENCOUNTER 2023-12-04 10:42 | Outpatient (REF) | payer MEDICARE, SELFPAY ==
[2023-12-04 17:18] LABS: ALT 26 U/L (16-63); AST 31 U/L (15-37); Albumin 4.3 g/dL (3.4-5.0); Alkaline Phosphatase 86 U/L (46-116); Anion Gap 12.1 mmol/L (3-11); BUN 23 mg/dL (7-18); Bilirubin, Total 0.9 mg/dL (0.2-1.0); CO2 25.9 mmol/L (21.0-32.0); CREATININE 1.3 mg/dL (0.70-1.30); Calcium 9.7 mg/dL (8.5-10.1); Calculated LDL 75 mg/dL (<100); Chloride 106 mmol/L (98-107); Cholesterol 151 mg/dL (<200); Estimated GFR 55.19 (mL/min/1.73m2); Glucose 112 mg/dL (74-106); HDL Cholesterol 36 mg/dL (40-60); Potassium 3.7 mmol/L (3.5-5.1); Sodium 144 mmol/L (136-145); TSH (W/Ref FT4) 1.55 uIU/mL (0.36-3.74); Total Protein 8.5 g/dL (6.4-8.2); Triglyceride 201 mg/dL (<150)
== END 2023-12-04 10:43 | disposition home or self-care (01) ==
LOC: NCHCN 10:42
PROVIDERS: PCP Family Medicine; Referring Provider Family Medicine; Visit Provider Family Medicine
DX: I10 Essential (primary) hypertension (principal)
CPT/HCPCS: 80053; 80061; 84443

== ENCOUNTER → 2023-12-14 01:38 | Outpatient (CLI) | payer MEDICARE, SELFPAY ==
--- NOTE | 2023-12-14 | DI.NM_ITS ---
APPROVED REPORT Exam: Pharmacologic Patient Location: Out-Patient Room/Bed: Stress Nurse: Yasmeen Brice RN Ordering Provider:CHIDI ALYCE, Contact Number: [phone] BMI: 24.20 Baseline Rhythm: Sinus Bradycardia Comment: first AVB HI 221 Indications: atherosclerosis heart disease without angina pectoris Medical History Medical History: basal cell carcinoma, HLD, depression, seasonal affective disorder, polyneuropathy, HTN, CAD, AAA, PVD, BPH, OA, osteoporosis, osteogenesis imperfecta Cardiac Medications: Atorvastatin, aspirin, HCTZ, losartan, metoprolol succinate Allergies: Prevnar, sulfadiazine, codeine, demerol, meperidine, zyban, lisinopril Cardiac Risk Factors: PVD, CVD, HTN, HLD, COPD, Former Smoker Previous Cardiac Procedures: stents 2010 Pretest Chest Pain Characteristics: none Exercise History: Indeterminate Physical Disabilities: Hips Lung Sounds: clear Heart Sounds: Regular, Bradycardia Stress Test Details Test: Pharmacologic stress testing performed using 0.4 mg of regadenoson per 5 mL given IV over 10 s econds. Nuclear Acquisition: Rest Tc-99m/Stress Tc-99m 1 day Rest Isotope: Tc-99m Sestamibi. Dose: 10.2 Date: 12/14/2023 Injection Time: 0900 Stress Isotope: Tc-99m Sestamibi. Dose: 30.2 Date: 12/14/2023 Injection Time: 1050 HR Resting HR Supine: 52 bpm Max Heart Rate (APMHR): 139 bpm Target HR (85% APMHR): 118 bpm Max HR Achieved: 78 bpm % of APMHR: 56 Recovery HR: 70 bpm BP Resting BP Supine: 180/80 mmHg Max BP: 190/80 mmHg Recovery BP: 158/84 mmHg ECG Resting ECG: Sinus Bradycardia, 1st degree AV block Ectopy: none Comment: T wave inversion II, III, aVF, V5, V6 Stress ECG: Sinus Rhythm ST Change: No significant ST segment changes noted Arrhythmia: None Recovery ECG: Sinus Rhythm Recovery ST Change: No significant ST segment changes noted Recovery Arrhythmia: None Patient to ER: 1115 Reason Why: After test complete, patient developed upper back and L shoulder pain (which he reports e xperiencing at home). Given SL Nitro 0.4mg at 1055 for pain 7/10. Patient reports this helped his chester n (now 0/10) but then symptoms progressed to SOB, inability to complete sentences r/t SOB, dizziness, and numbness in his legs. Under Presser called and patient brought to the emergency room with vital s igns BP 160/82, HR 70's and reporting no chest pain. Medications Administered Nitroglycerlin (0.4 mg at 1055) Clinical Rate Pressure Product: 40426 Stress ECG Conclusion 1. Resting electrocardiogram showed diffuse ST-T abnormalities 2. Patient underwent testing using pharmacologic stress witih regadenosan 3. Peak heart rate was 56% of predicted for age 4. The electrocardiographic portion of the test was nondiagnostic 5. See MPI report Critical Notification Critical Value: Yes Physician Notified Date: 12/14/2023 Time: 1055 Physician Name: Suki Stress Test Summary STAGE HR BP SpO2 Symptoms NOTES Supine 52 180/80 98 1 min post Lexiscan injection 60 190/80 98 3 min post Lexiscan injection 73 144/84 98 6 min post Lexiscan injection 70 158/84 98 Patient completed laying lexiscan test without any symptoms. Monitored for 6 minutes post rajat admini stration. Patient reported feeling fine. Taken off monitor and was getting ready to get post-test shanda ges when he developed upper back and L shoulder pain. Patient reports this is the pain he usually vivek es a nitro for at home and rated his pain 7/10. At 1055 1 SL 0.4mg Nitro given with resolution of chester n to 0/10 by 1100. Patient then reported feeling lightheaded, numbness and tingling in legs, and SOB that left him unable to talk in full sentences. Under Presser called, patient brought to ER at 1115 on stretcher with stable VS. While wheeling to ER patient reports SOB resolved and dizziness resolved, but lingering tingling in his legs. Report given to ER and patient handed off. MPI Conclusion Myocardial perfusion imaging shows equivocal ischemia of the inferobasal and mid posterior lateral wa lls Ejection fraction is 46%. Wall motion is normal Radiologist Interpretation Radiologist Interpretation by: Geo Weiss MD Interpretation Date/Time: 12/16/2023 16:31:56
[2023-12-14] MEDS: Regadenoson 0.4 MG/5 ML SYR IVP (10:51)
[2023-12-14] MEDS: nitroGLYcerin 0.4 MG TAB SL (10:55)
== END ==
PROVIDERS: PCP Family Medicine; Visit Provider Family Medicine
DX: I25.10 Atherosclerotic heart disease of native coronary artery without angina pectoris (principal)
CPT/HCPCS: 78452; 93016; 93018; 93017; J2785

== ENCOUNTER 2023-12-14 11:12 | Emergency (ER) | payer MEDICARE, SELFPAY ==
--- NOTE | 2023-12-14 11:00 | RT.EKG_ITS ---
APPROVED REPORT Exam: Resting ECG Reason for Exam: chest pain Patient Location: E HR:52 bpm ECG Measurements Heart Rate 52 AXIS SD 192 P 29 QRSd 108 QRS -46 QT 437 T -15 QTc 406 Conclusion Sinus bradycardia 52 normal axis no stemi
[2023-12-14 11:19] VITALS: BP 174/68; PULSE 52; RESP 18; TEMP 36.8; O2SAT 97
[2023-12-14 11:22] VITALS: RESP 18
[2023-12-14] MEDS: Aspirin 81 MG CHEW 324 MG CH (11:39)
[2023-12-14 11:51] LABS: Abs Immature Grans 0.03 10^3/uL (0.0-0.06); Absolute Basophil Count 0.05 10^3/uL (0.0-0.2); Absolute Eosinophil Count 0.22 10^3/uL (0.0-0.7); Absolute Monocyte Count 0.72 10^3/uL (0.1-0.8); Absolute Neutrophil Count 6.03 10^3/uL (1.2-6.7); Basophils % 0.6; Eosinophils % 2.5; HGB 14.3 g/dL (13.5-17.5); Immature Grans % 0.3; Lymphocytes % 20.3; MCH 33.6 pg (27.0-33.0); MCHC 35.8 % (32.0-36.0); MCV 94 fL (80-95); MPV 10.4 fL (8.0-11.0); Monocytes % 8.1; Neutrophils % 68.2; Platelet Count 147 10^3/uL (130-400); RBC 4.25 10^6/uL (4.36-5.78); RDW 13.3 % (11.8-14.1); RDW-SD 45.9 fL; WBC 8.85 10^3/uL (4.4-10.8)
[2023-12-14 12:01] LABS: INR 1.1 (0.9-1.1); Prothrombin Time 10.7 sec (9.1-11.1)
[2023-12-14 12:13] LABS: ALT 26 U/L (16-63); AST 27 U/L (15-37); Albumin 3.9 g/dL (3.4-5.0); Alkaline Phosphatase 75 U/L (46-116); Anion Gap 12.8 mmol/L (3-11); BUN 20 mg/dL (7-18); Bilirubin, Total 0.8 mg/dL (0.2-1.0); CO2 27.2 mmol/L (21.0-32.0); CREATININE 1.3 mg/dL (0.70-1.30); Chloride 103 mmol/L (98-107); Estimated GFR 55.19 (mL/min/1.73m2); Glucose 109 mg/dL (74-106); Magnesium 2.1 mg/dL (1.8-2.4); NT-proBNP 475 pg/mL (<300); Potassium 3.6 mmol/L (3.5-5.1); Sodium 143 mmol/L (136-145); Total Protein 7.6 g/dL (6.4-8.2); Troponin I < 50 ng/L (< or =60)
[2023-12-14 12:46] VITALS: BP 127/94; PULSE 51; RESP 15; O2SAT 97
--- NOTE | 2023-12-14 15:00 | W.ED.GENAD ---
Discharge Plan Disposition Patient Disposition: Home Discharge Details Clinical Impression: Chest pain Primary Care Provider: Sheila Fontanez V ED Provider: Anson Irene Home Meds and New Rx's Prescriptions: No Action metoprolol succinate 25 mg tablet extended release 24 hr 12.5 mg PO DAILY losartan 50 mg tablet 50 mg PO DAILY aspirin [Lo-Dose Aspirin] 81 MG tablet,delayed release (DR/EC) 81 mg PO DAILY multivitamin Tablet 1 tab PO DAILY sertraline 100 mg Tablet 150 mg PO DAILY nitroglycerin 0.4 mg Tablet, Sublingual 0.4 mg SUBLINGUAL Q5M PRN calcium carbonate [Calcium 600] 600 mg calcium (1,500 mg) Tablet 600 mg PO BID glucosamine sulfate 500 mg Capsule 1,000 mg PO BID atorvastatin 40 mg tablet 40 mg PO QPM Patient Comments: TAKE 1 TABLET BY MOUTH EVERY NIGHT omeprazole 20 mg Capsule,Delayed Release(Dr/Ec) 20 mg PO DAILY albuterol sulfate [Ventolin HFA] 90 mcg/actuation Hfa Aerosol Inhaler 2 puff INHALATION QID PRN Fish Oil 1,000 mg Capsule 1 cap PO BID hydrochlorothiazide 12.5 mg tablet 12.5 mg PO QAM Discharge Instructions Instructions: Chest Pain (ED) Additional Instructions: we will take you to finish your stress test today return to the ED with any concerns, otherwise follow up with cardiology Discharge Data Discharge Date/Time-TO BE ENTERED AT DEPARTURE: 12/14/23 12:50 HPI General Date/Time Provider Initiated Documentation: 12/14/23 11:25. Limitations to Documentation: no limitations. Information obtained by: patient. HPI Narrative: 83-year-old gentleman with past medical history of CAD with stent presents for evaluation of chest pain and lightheadedness. Patient was in the process of getting a nuclear medicine stress test. He had received his nucleotide injection. Shortly after he started to feel a little bit of chest pain and lightheadedness and tingling. He took a nitroglycerin and prior to arrival in the emergency department, his symptoms seem to have resolved. He is getting a stress test today because he has been having some intermittent chest pain. He is followed with cardiology. Related Data Home Medications Medication Instructions Recorded Confirmed aspirin 81 mg tablet,delayed 81 mg PO DAILY 08/24/13 12/14/23 release (Lo-Dose Aspirin) calcium carbonate 600 mg calcium 600 mg PO BID 05/15/19 12/14/23 (1,500 mg) tablet (Calcium) glucosamine sulfate 500 mg capsule 1,000 mg PO BID 05/15/19 12/14/23 multivitamin 1 tab PO DAILY 05/15/19 12/14/23 nitroglycerin 0.4 mg sublingual 0.4 mg sublingual Q5M PRN 05/15/19 12/14/23 tablet sertraline 100 mg tablet 150 mg PO DAILY 05/15/19 12/14/23 albuterol sulfate 90 mcg/actuation 2 puff inhalation QID PRN 03/26/21 12/14/23 aerosol inhaler (Ventolin HFA) omega-3 fatty acids-vitamin E 1 cap PO BID 03/26/21 12/14/23 1,000 mg capsule omeprazole 20 mg capsule,delayed 20 mg PO DAILY 03/26/21 12/14/23 release hydrochlorothiazide 12.5 mg tablet 12.5 mg PO QAM 10/17/21 12/14/23 losartan 50 mg tablet 50 mg PO DAILY 10/17/21 12/14/23 metoprolol succinate 25 mg 12.5 mg PO DAILY 10/17/21 12/14/23 tablet,extended release 24 hr atorvastatin 40 mg tablet 40 mg PO QPM 12/14/23 12/14/23 Allergies Allergy/AdvReac Type Severity Reaction Status Date / Time codeine Allergy head fuzzy Unverified 12/14/23 11:25 meperidine HCl [From Demerol] Allergy confusion Unverified 12/14/23 11:25 Sulfa (Sulfonamide Allergy Agitation Unverified 12/14/23 11:25 Antibiotics) lisinopril AdvReac Mild cough Unverified 12/14/23 11:25 levofloxacin [From Levaquin] AdvReac Other (See Unverified 12/14/23 11:25 Comment) General Stated Complaint: SOB/SuddenOnset KIARA: 3 Exam Narrative Exam Narrative: Review of Systems: All systems reviewed & are unremarkable except as noted in HPI and below Well-developed, no acute distress NCAT PERRL, normal conjunctiva RRR, no murmur Unlabored respiratory effort, clear breath sounds bilaterally Nondistended abdomen Extremities w/o deformity, no cyanosis, no edema No rashes or lesions. no focal neurologic deficits Appropriate mood and affect Course Vital Signs Vital signs: Vital Signs Temperature 36.8 C 12/14/23 11:19 Pulse 52 L 12/14/23 11:19 Respiratory Rate 18 12/14/23 11:19 Blood Pressure 174/68 H 12/14/23 11:19 Pulse Oximetry 97 12/14/23 11:19 Temperature 36.8 C 12/14/23 11:19 Temperature Source Temporal Artery Scan 12/14/23 11:19 Pulse 51 L 12/14/23 12:46 Respiratory Rate 15 12/14/23 12:46 Respiratory Effort Normal 12/14/23 11:22 Respiratory Depth Normal 12/14/23 11:22 Respiratory Pattern Normal 12/14/23 11:22 Blood Pressure 127/94 H 12/14/23 12:46 Blood Pressure Position Supine 12/14/23 11:19 Pulse Oximetry 97 12/14/23 12:46 Oxygen Delivery Method Room Air 12/14/23 11:19 Oxygen Flow Rate 0 12/14/23 11:19 Pain Level 0 12/14/23 11:19 Lab/Test Results Lab/Test Results: Laboratory Tests Range/Units 12/14/23 12/14/23 12/14/23 11:36 11:36 11:36 WBC (4.4-10.8) 10^3/uL 8.85 RBC (4.36-5.78) 10^6/uL 4.25 L Hgb (13.5-17.5) g/dL 14.3 Hct (40.0-50.0) % 40.0 MCV (80-95) fL 94 MCH (27.0-33.0) pg 33.6 H MCHC (32.0-36.0) % 35.8 RDW (11.8-14.1) % 13.3 Plt Count (130-400) 10^3/uL 147 MPV (8.0-11.0) fL 10.4 Immature Gran % 0.3 Neutrophils % 68.2 Lymphocytes % 20.3 Monocytes % 8.1 Eosinophils % 2.5 Basophils % 0.6 Nucleated RBC % (0.0-0.3) % 0.0 Absolute Neutrophils (1.2-6.7) 10^3/uL 6.03 Absolute Lymphocytes (1.2-3.4) 10^3/uL 1.80 Absolute Monocytes (0.1-0.8) 10^3/uL 0.72 Absolute Eosinophils (0.0-0.7) 10^3/uL 0.22 Absolute Basophils (0.0-0.2) 10^3/uL 0.05 PT (9.1-11.1) sec 10.7 INR (0.9-1.1) 1.1 Sodium (136-145) mmol/L 143 Potassium (3.5-5.1) mmol/L 3.6 Chloride (98-107) mmol/L 103 Carbon Dioxide (21.0-32.0) mmol/L 27.2 Anion Gap (3-11) mmol/L 12.8 H BUN (7-18) mg/dL 20 H Creatinine (0.70-1.30) mg/dL 1.3 Est GFR (CKD-EPI 2020) (mL/min/1.73m2) 55.19 Glucose (74-106) mg/dL 109 H Calcium (8.5-10.1) mg/dL 10.0 Magnesium (1.8-2.4) mg/dL 2.1 Total Bilirubin (0.2-1.0) mg/dL 0.8 AST (15-37) U/L 27 ALT (16-63) U/L 26 Alkaline Phosphatase (46-116) U/L 75 Troponin I Cancelled < 50 NT-Pro-B Natriuret Pep Cancelled 475 H Total Protein (6.4-8.2) g/dL 7.6 Albumin (3.4-5.0) g/dL 3.9 Range/Units 12/14/23 14:26 WBC (4.4-10.8) 10^3/uL RBC (4.36-5.78) 10^6/uL Hgb (13.5-17.5) g/dL Hct (40.0-50.0) % MCV (80-95) fL MCH (27.0-33.0) pg MCHC (32.0-36.0) % RDW (11.8-14.1) % Plt Count (130-400) 10^3/uL MPV (8.0-11.0) fL Immature Gran % Neutrophils % Lymphocytes % Monocytes % Eosinophils % Basophils % Nucleated RBC % (0.0-0.3) % Absolute Neutrophils (1.2-6.7) 10^3/uL Absolute Lymphocytes (1.2-3.4) 10^3/uL Absolute Monocytes (0.1-0.8) 10^3/uL Absolute Eosinophils (0.0-0.7) 10^3/uL Absolute Basophils (0.0-0.2) 10^3/uL PT (9.1-11.1) sec INR (0.9-1.1) Sodium (136-145) mmol/L Potassium (3.5-5.1) mmol/L Chloride (98-107) mmol/L Carbon Dioxide (21.0-32.0) mmol/L Anion Gap (3-11) mmol/L BUN (7-18) mg/dL Creatinine (0.70-1.30) mg/dL Est GFR (CKD-EPI 2020) (mL/min/1.73m2) Glucose (74-106) mg/dL Calcium (8.5-10.1) mg/dL Magnesium (1.8-2.4) mg/dL Total Bilirubin (0.2-1.0) mg/dL AST (15-37) U/L ALT (16-63) U/L Alkaline Phosphatase (46-116) U/L Troponin I Cancelled NT-Pro-B Natriuret Pep Total Protein (6.4-8.2) g/dL Albumin (3.4-5.0) g/dL Medical Decision Making Emergent evaluation of chest pain. Not exertional. Patient had come to the ED from the stress test lab. My EKG here was not acutely ischemic. He was noted to be hypertensive but no other vital sign abnormalities. He received part of the stress test, but did not complete the testing. The patient was placed on a manager monitoring, lab work was obtained. During his time in the emergency department he was asymptomatic. The lab work was also unremarkable including his troponin which was negative. I discussed with cardiology and she recommended discharging the patient and sending him back to the nuclear medicine area to complete his stress test. She does not think a second troponin is indicated. Patient is amenable to this plan and continues to be asymptomatic. Return precautions advised, otherwise patient will follow-up with cardiology. Medical Records Medical records reviewed: Yes I reviewed the patient's medical records. Lab Data Lab results reviewed: Yes I reviewed the patient's lab results. Quality:[facility] Health Related Social Needs: No Data to Display PFSH All Active Problems Chest pain (Acute) Unilateral post-traumatic osteoarthritis, right hip (Acute) Hx of skin cancer, basal cell (Acute) Neoplasm of unspecified behavior of bone, soft tissue, and skin (Acute) Pleural effusion (Acute) Social History Smoking/Tobacco Use Status: Former Tobacco Use Smoking risk assessment performed?: Yes Alcohol Intake: never Drug use: Never Substance use type: does not use Housing: house Do you feel safe at home: Yes Do you feel safe in your relationship?: Yes
== END 2023-12-14 12:50 | disposition home or self-care (01) ==
PROVIDERS: Emergency Provider Emergency Medicine; PCP Family Medicine
DX: R07.9 Chest pain, unspecified (principal); R42 Dizziness and giddiness
CPT/HCPCS: 36415; 78452; 80053; 93005; 93016; 93018; 99283; 83735; 83880; 84484; 85025; 85610; 93010; 93017; J2785

== ENCOUNTER 2023-12-17 08:11 | Outpatient (RCR) | payer SELFPAY ==
[2023-11-19 00:09] VITALS: BP 132/80; PULSE 60
[2023-11-19 08:10] VITALS: BP 129/80; PULSE 64
[2023-11-24 08:00] VITALS: BP 123/76; PULSE 74
[2023-11-26 09:45] VITALS: BP 138/82; PULSE 76
[2023-12-01 08:07] VITALS: BP 128/71; PULSE 63
[2023-12-03 08:04] VITALS: BP 124/72; O2SAT 96
[2023-12-08 08:11] VITALS: BP 143/77; PULSE 68
[2023-12-10 08:06] VITALS: BP 133/72; PULSE 68
[2023-12-15 08:13] VITALS: BP 132/76; PULSE 73
== END 2023-12-17 23:59 | disposition home or self-care (01) ==
LOC: CR 08:11
PROVIDERS: PCP Family Medicine; Visit Provider Internal Medicine Cardiovascular Disease
DX: R69 Illness, unspecified (principal)

== ENCOUNTER 2023-12-31 09:26 | Outpatient (RCR) | payer SELFPAY ==
[2023-12-18 00:19] VITALS: BP 132/80; PULSE 60
[2023-12-24 08:15] VITALS: BP 129/77; PULSE 66
[2023-12-29 08:18] VITALS: BP 138/76; PULSE 58
[2023-12-31 08:00] VITALS: BP 125/77; PULSE 63
== END 2024-01-17 23:59 | disposition home or self-care (01) ==
LOC: CR 09:26
PROVIDERS: PCP Family Medicine; Visit Provider Internal Medicine Cardiovascular Disease
DX: R69 Illness, unspecified (principal)

== ENCOUNTER 2024-04-14 08:25 | Outpatient (RCR) | payer SELFPAY ==
[2024-03-19 00:30] VITALS: BP 138/77; PULSE 58
[2024-03-22 08:21] VITALS: BP 147/81; PULSE 65
[2024-03-24 08:10] VITALS: BP 158/74; PULSE 61
[2024-03-29 08:39] VITALS: BP 112/70; PULSE 75
[2024-03-31 12:28] VITALS: BP 158/77; PULSE 54
[2024-04-05 08:22] VITALS: BP 128/78; PULSE 86
[2024-04-07 08:12] VITALS: BP 130/76; PULSE 73
[2024-04-12 08:19] VITALS: BP 131/72; PULSE 59
[2024-04-14 09:16] VITALS: BP 162/77; PULSE 70
== END 2024-04-17 23:59 | disposition home or self-care (01) ==
LOC: CR 08:25
PROVIDERS: PCP Family Medicine; Visit Provider Internal Medicine Cardiovascular Disease
DX: R69 Illness, unspecified (principal)

== ENCOUNTER 2024-05-12 11:07 | Outpatient (RCR) | payer SELFPAY ==
[2024-04-18 00:27] VITALS: BP 138/77; PULSE 58
[2024-04-19 08:12] VITALS: BP 174/93; PULSE 72
[2024-04-26 08:23] VITALS: BP 165/77; PULSE 78; O2SAT 97
[2024-05-03 07:46] VITALS: BP 143/81; PULSE 77
[2024-05-05 08:23] VITALS: BP 140/80; PULSE 73
[2024-05-10 08:06] VITALS: BP 158/83; PULSE 69
[2024-05-12 08:00] VITALS: BP 135/75; PULSE 77
== END 2024-05-18 23:59 | disposition home or self-care (01) ==
LOC: CR 11:07
PROVIDERS: PCP Family Medicine; Visit Provider Internal Medicine Cardiovascular Disease
DX: R69 Illness, unspecified (principal)

== ENCOUNTER 2024-06-16 08:10 | Outpatient (RCR) | payer SELFPAY ==
[2024-05-19 00:16] VITALS: BP 138/77; PULSE 58
[2024-05-19 07:58] VITALS: BP 142/76; PULSE 67
[2024-05-24 08:14] VITALS: BP 178/78; PULSE 60
[2024-05-26 10:21] VITALS: BP 160/74; PULSE 74
[2024-05-31 08:24] VITALS: BP 166/81; PULSE 70
[2024-06-02 08:06] VITALS: BP 185/81; PULSE 66
[2024-06-07 08:48] VITALS: BP 161/79; PULSE 75
[2024-06-09 08:15] VITALS: BP 161/86; PULSE 77
[2024-06-14 08:16] VITALS: BP 158/80; PULSE 68
== END 2024-06-18 23:59 | disposition home or self-care (01) ==
LOC: CR 08:10
PROVIDERS: PCP Family Medicine; Visit Provider Internal Medicine Cardiovascular Disease
DX: R69 Illness, unspecified (principal)

== ENCOUNTER 2024-06-21 08:54 | Outpatient (CLI) | payer MEDICARE, SELFPAY ==
--- NOTE | 2024-06-21 07:00 | DI.RAD_ITS ---
Exam(s) XR PAIN CLINIC SACRIOILIAC 2V EXAM: XR PAIN CLINIC SACRIOILIAC 2V CLINICAL HISTORY: Dx: Sacroiliac Joint Dysfunction TECHNIQUE: 2D and realtime digital imaging was performed. CONTRAST MATERIAL: Refer to procedure report. COMPARISON: No exams were available for comparison FINDINGS: Fluoroscopy was provided for Dr. Wetzle during the performance of a sacroiliac joint injection. Pl ease refer to the procedure report for complete details. Ka,r=6.92 mGy IMPRESSION: RADIATION DOSE DELIVERED: 0.0 0.0 0
[2024-06-21 09:08] VITALS: BP 182/83; PULSE 63; RESP 20; TEMP 37; O2SAT 100
--- NOTE | 2024-06-21 09:45 | PDOC.PAIN ---
Date of service: 06/21/24 Time of Service: 10:19 Pain Managment Procedure Note Procedure Note Procedure Note: ?Sacroiliac Joint Steroid Injection ? Location: ? Right SI Joint? Pre-procedure Diagnosis: Sacroiliitis, not elsewhere classified - M46.1 ? Post-procedure Diagnosis:? The same as above ? Sedation:? NONE ? Medication: Depo-Medrol 40 mg, bupivacaine 0.5% 1 mL, Omnipaque 0.25 mL per joint ? Estimated blood loss:? less than 2 cc ? Surgeon:? Deni Wetzel MD ? COMMENT: THIS WILL BE BOTH DIAGNOSTIC AND THERAPEUTIC ? Procedure Detail:? The procedure and potential risks were explained to the patient and informed written consent was obtained. The patient was escorted to the procedure room and placed in the prone position. Pillows were utilized for proper positioning and comfort. Time out was performed in the procedure room with nursing staff confirming the patient's identity, procedure to be performed, allergies, and any blood thinning or anti-platelet medications. The patient's lumbosacral area was prepped with ChloraPrep and draped in a sterile fashion. Sterile technique was maintained throughout the procedure.? Sterile gloves were used, a face mask was worn, and new single dose vials of all medications were used with the top being swabbed with alcohol and given time to dry prior to withdrawal of medication. Lidocaine 1% was used to anesthetize the skin. With fluoroscopic guidance, a 22-gauge 3.5 spinal needle was advanced into the posteroinferior aspect of the Right SI joint . Confirmation of intra-articular position of the needle tip was obtained with injection of 0.25cc of Omnipaque 300 contrast which showed appropriate spread within the joint.? Following negative aspiration, 40mg of methylprednisolone mixed with 1 mL of bupivacaine 0.5% was injected.? The needle was gently removed. ?The patient tolerated the procedure well and was transported to the recovery area for observation and discharge instructions.? Permanent images saved and recorded. Plan:? Follow up prn. COMMENT: 80 % BETTER AFTER INJECTION
[2024-06-21 10:08] VITALS: O2SAT 100
[2024-06-21 10:10] VITALS: O2SAT 98
[2024-06-21] MEDS: Omnipaque 240 MG/ML 50 ML BTL IJ (10:21)
[2024-06-21] MEDS: methylPREDNISolone ACETATE 80 MG/ML VIAL IJ (10:22)
[2024-06-21] MEDS: Bupivacaine 0.5% Pres-Free 10 ML VIAL IJ (10:22)
[2024-06-21] MEDS: Nerve Block Tray 1 EACH MC (10:23)
== END 2024-06-21 08:55 | disposition home or self-care (01) ==
LOC: PC 08:54
PROVIDERS: PCP Family Medicine; Visit Provider Anesthesiology Pain Medicine
DX: M54.50 Low back pain, unspecified (principal); M46.1 Sacroiliitis, not elsewhere classified
CPT/HCPCS: 00123; 27096; 72200; J0665; J1010; Q9967

== ENCOUNTER 2024-07-07 19:55 | Outpatient (REF) | payer MEDICARE, SELFPAY ==
[2024-07-07 17:38] LABS: HCT 46.3 % (40.0-50.0); HGB 15.6 g/dL (13.5-17.5); MCH 32.3 pg (27.0-33.0); MCHC 33.7 % (32.0-36.0); MCV 96 fL (80-95); MPV 11.5 fL (8.0-11.0); Platelet Count 186 10^3/uL (130-400); RBC 4.83 10^6/uL (4.36-5.78); RDW 13.8 % (11.8-14.1); RDW-SD 49.1 fL; WBC 9.26 10^3/uL (4.4-10.8)
[2024-07-07 18:01] LABS: ALT 22 U/L (16-63); AST 31 U/L (15-37); Albumin 4.7 g/dL (3.4-5.0); Alkaline Phosphatase 132 U/L (46-116); Anion Gap 10.2 mmol/L (3-11); BUN 23 mg/dL (7-18); Bilirubin, Total 0.93 mg/dL (0.2-1.0); CO2 27.8 mmol/L (21.0-32.0); CREATININE 1.3 mg/dL (0.70-1.30); Calcium 10.1 mg/dL (8.5-10.1); Chloride 103 mmol/L (98-107); Estimated GFR 54.85 (mL/min/1.73m2); Glucose 99 mg/dL (74-106); Potassium 4.3 mmol/L (3.5-5.1); Sodium 141 mmol/L (136-145); Total Protein 8.2 g/dL (6.4-8.2)
== END 2024-07-07 19:56 | disposition home or self-care (01) ==
LOC: NCHCN 19:55
PROVIDERS: PCP Family Medicine; Visit Provider Family Medicine
DX: I10 Essential (primary) hypertension (principal); Z00.00 Encounter for general adult medical examination without abnormal findings
CPT/HCPCS: 80053; 85027

== ENCOUNTER 2024-07-14 08:09 | Outpatient (RCR) | payer SELFPAY ==
[2024-06-19 00:26] VITALS: BP 138/77; PULSE 58
[2024-06-21 08:18] VITALS: BP 178/88; PULSE 61
[2024-06-23 08:18] VITALS: BP 175/87; PULSE 61
[2024-06-28 08:26] VITALS: BP 183/80; PULSE 64
[2024-06-30 09:21] VITALS: BP 190/85; PULSE 60
[2024-07-05 08:34] VITALS: BP 156/76; PULSE 64
[2024-07-12 08:22] VITALS: BP 169/82; PULSE 67
[2024-07-14 08:22] VITALS: BP 160/73; PULSE 65
== END 2024-07-18 23:59 | disposition home or self-care (01) ==
LOC: CR 08:09
PROVIDERS: PCP Family Medicine; Visit Provider Internal Medicine Cardiovascular Disease
DX: R69 Illness, unspecified (principal)

== ENCOUNTER 2024-08-18 07:50 | Outpatient (RCR) | payer SELFPAY ==
[2024-07-19 00:12] VITALS: BP 138/77; PULSE 58
[2024-07-19 07:56] VITALS: BP 152/84; PULSE 69
[2024-07-21 08:03] VITALS: BP 141/77; PULSE 64; O2SAT 98
[2024-07-26 08:29] VITALS: BP 153/77; PULSE 75
[2024-07-28 09:31] VITALS: BP 131/71; PULSE 63
[2024-08-02 08:33] VITALS: BP 143/81; PULSE 52
[2024-08-04 07:57] VITALS: BP 138/78; PULSE 61; O2SAT 98
[2024-08-09 08:27] VITALS: BP 171/78; PULSE 54
[2024-08-11 08:00] VITALS: BP 131/75; PULSE 61; O2SAT 97
[2024-08-16 08:57] VITALS: BP 151/76; PULSE 56
== END 2024-08-18 23:59 | disposition home or self-care (01) ==
LOC: CR 07:50
PROVIDERS: PCP Family Medicine; Visit Provider Internal Medicine Cardiovascular Disease
DX: R69 Illness, unspecified (principal)

== ENCOUNTER 2024-09-13 08:15 | Outpatient (RCR) | payer SELFPAY ==
[2024-08-19 00:28] VITALS: BP 138/77; PULSE 58
[2024-08-23 08:17] VITALS: BP 125/66; PULSE 52
[2024-08-25 08:11] VITALS: BP 129/73; PULSE 59
[2024-08-30 08:06] VITALS: BP 134/69; PULSE 57
[2024-09-01 09:07] VITALS: BP 116/65; PULSE 57
[2024-09-06 08:42] VITALS: BP 158/82; PULSE 56
[2024-09-08 08:06] VITALS: BP 113/69; PULSE 55; O2SAT 98
[2024-09-13 08:19] VITALS: BP 119/66; PULSE 63
== END 2024-09-17 23:59 | disposition home or self-care (01) ==
LOC: CR 08:15
PROVIDERS: PCP Family Medicine; Visit Provider Internal Medicine Cardiovascular Disease
DX: R69 Illness, unspecified (principal)

== ENCOUNTER 2024-09-20 10:48 | Outpatient (CLI) | payer MEDICARE, SELFPAY ==
--- NOTE | 2024-09-20 06:00 | DI.RAD_ITS ---
Exam(s) XR PAIN CLINIC SACRIOILIAC 2V EXAM: XR PAIN CLINIC SACRIOILIAC 2V CLINICAL HISTORY: DX: Sacroiliac Dysfunction TECHNIQUE: 2D and realtime digital imaging was performed. CONTRAST MATERIAL: Refer to procedure report. COMPARISON: No exams were available for comparison FINDINGS: Fluoroscopy was provided for Dr. Wetzel during the performance of a right sacroiliac joint injectio n. Please refer to the procedure report for complete details. Ka,r=4.51 mGy IMPRESSION: RADIATION DOSE DELIVERED: 0.0 0.0 0
[2024-09-20 10:53] VITALS: BP 131/59; PULSE 60; RESP 20; TEMP 36.6; O2SAT 100
--- NOTE | 2024-09-20 11:14 | PDOC.PAIN ---
Date of service: 09/20/24 Time of Service: 11:32 Pain Managment Procedure Note Procedure Note Procedure Note: ?Sacroiliac Joint Steroid Injection ? Location: ? Right SI Joint? Pre-procedure Diagnosis: Sacroiliitis, not elsewhere classified - M46.1 ? Post-procedure Diagnosis:? The same as above ? Sedation:? NONE ? Medication: Depo-Medrol 40 mg, bupivacaine 0.5% 1 mL, Omnipaque 0.25 mL per joint ? Estimated blood loss:? less than 2 cc ? Surgeon:? Deni Wetzel MD ? COMMENT: PT HAD GREATER THAN 50% RELIEF OF HER PAIN FOR GREATER THAN 3 MONTHS FROM PREVIOUS INJECTION ? Procedure Detail:? The procedure and potential risks were explained to the patient and informed written consent was obtained. The patient was escorted to the procedure room and placed in the prone position. Pillows were utilized for proper positioning and comfort. Time out was performed in the procedure room with nursing staff confirming the patient's identity, procedure to be performed, allergies, and any blood thinning or anti-platelet medications. The patient's lumbosacral area was prepped with ChloraPrep and draped in a sterile fashion. Sterile technique was maintained throughout the procedure.? Sterile gloves were used, a face mask was worn, and new single dose vials of all medications were used with the top being swabbed with alcohol and given time to dry prior to withdrawal of medication. Lidocaine 1% was used to anesthetize the skin. With fluoroscopic guidance, a 22-gauge 3.5 spinal needle was advanced into the posteroinferior aspect of the Right SI joint . Confirmation of the position of the needle tip was obtained with injection of 0.25cc of Omnipaque 240 contrast which showed appropriate spread .? Following negative aspiration, 40mg of methylprednisolone mixed with 1 mL of bupivacaine 0.5% was injected.? The needle was gently removed. ?The patient tolerated the procedure well and was transported to the recovery area for observation and discharge instructions.? Permanent images saved and recorded. Plan:? Follow up prn. PAIN PRE PROCEDURE 10 POST PROCEDURE 010 COMMENT: 80 % BETTER AFTER INJECTION. Patient has pain radiating down his right leg. I reviewed his images and there is no MRI of his lumbar spine. I am ordering an MRI of his lumbar spine unless this takes care of of his pain.
[2024-09-20 11:16] VITALS: O2SAT 97
[2024-09-20 11:20] VITALS: O2SAT 97
[2024-09-20] MEDS: Bupivacaine 0.5% Pres-Free 10 ML VIAL IJ (11:47)
[2024-09-20] MEDS: Omnipaque 240 MG/ML 50 ML BTL IJ (11:47)
[2024-09-20] MEDS: Nerve Block Tray 1 EACH MC (11:48)
[2024-09-20] MEDS: methylPREDNISolone ACETATE 80 MG/ML VIAL IJ (11:48)
== END 2024-09-20 10:49 | disposition home or self-care (01) ==
LOC: PC 10:48
PROVIDERS: PCP Family Medicine; Visit Provider Anesthesiology Pain Medicine
DX: M54.50 Low back pain, unspecified (principal); M46.1 Sacroiliitis, not elsewhere classified
CPT/HCPCS: 00123; 27096; 72200; J0665; J1010; Q9967

== ENCOUNTER 2024-10-18 08:00 | Outpatient (RCR) | payer SELFPAY ==
[2024-09-18 00:26] VITALS: BP 138/77; PULSE 58
[2024-09-20 08:09] VITALS: BP 152/71; PULSE 51
[2024-09-22 08:05] VITALS: BP 119/70; PULSE 64
[2024-09-27 08:19] VITALS: BP 127/71; PULSE 66
[2024-09-29 12:38] VITALS: BP 155/69; PULSE 63
[2024-10-04 08:06] VITALS: BP 118/66; PULSE 67
[2024-10-06 08:08] VITALS: BP 137/77; PULSE 65
[2024-10-11 08:37] VITALS: BP 126/70; PULSE 77
[2024-10-13 08:02] VITALS: BP 124/64; PULSE 69; O2SAT 98
[2024-10-18 08:11] VITALS: BP 148/77; PULSE 75
== END 2024-10-18 23:59 | disposition home or self-care (01) ==
LOC: CR 08:00
PROVIDERS: PCP Family Medicine; Visit Provider Internal Medicine Cardiovascular Disease
DX: R69 Illness, unspecified (principal)

== ENCOUNTER 2024-11-17 07:52 | Outpatient (RCR) | payer SELFPAY ==
[2024-10-19 00:28] VITALS: BP 138/77; PULSE 58
[2024-10-20 08:16] VITALS: BP 128/78; PULSE 63
[2024-10-25 08:09] VITALS: BP 139/71; PULSE 58
[2024-10-27 08:20] VITALS: BP 126/65; PULSE 58
[2024-11-01 08:14] VITALS: BP 126/77; PULSE 58
[2024-11-03 08:33] VITALS: BP 155/74; PULSE 52
[2024-11-08 08:13] VITALS: BP 154/81; PULSE 56
[2024-11-10 08:10] VITALS: BP 117/87; PULSE 71
[2024-11-15 08:20] VITALS: BP 132/72; PULSE 59
[2024-11-17 08:02] VITALS: BP 136/80; PULSE 59; O2SAT 97
== END 2024-11-18 23:59 | disposition home or self-care (01) ==
LOC: CR 07:52
PROVIDERS: PCP Family Medicine; Visit Provider Internal Medicine Cardiovascular Disease
DX: R69 Illness, unspecified (principal)

== ENCOUNTER 2024-11-22 00:12 | Outpatient (CLI) | payer MEDICARE, SELFPAY ==
--- NOTE | 2024-11-22 06:15 | DI.MRI_ITS ---
Exam(s) MR LUMBAR SPINE WO EXAM: MR LUMBAR SPINE WO CLINICAL HISTORY: Pain low back to right lower extremity,rt lumbar radiculitis,m54.16. TECHNIQUE: Multiplanar multisequence MRI of the Lumbar spine was performed. COMPARISON: CT CT ABDOMEN PELVIS W from 05/15/2019 No more recent plain films or MRI. FINDINGS: There is metallic artifact related to aortic stents. There is also hardware in the right ilium. Thi s seriously degrades the images. Bones: Alignment: Prominent dextroscoliosis The marrow signal characteristics are grossly normal. Cord: The conus tip ends at the L1-2 level. It is of normal size and signal intensity. T12-L1: No focal disc herniation is present. No central spinal canal stenosis.No neural foraminal st enosis. L1-2:Endplate osteophytes eccentric toward the left. Mild facet degenerative changes. No focal disc herniation is present. No central spinal canal stenosis.Mild left neural foraminal narrowing. L2-3: Loss of disc height eccentric toward the left. Osteophytes projecting toward the left. Facet degenerative changes no focal disc herniation is present. No central spinal canal stenosis.Moderat e left neural foraminal stenosis. L3-4: The majority of the disc is not visible.There is a small central disc protrusion. There are bi lateral facet degenerative changes, greater on the left. There is mild left neural foraminal narrowi ng. No central spinal canal stenosis. L4-5:Loss of disc height eccentric toward the right. Mild facet degenerative changes on the right. No focal disc herniation is present. No central spinal canal stenosis.Severe right neural foraminal stenosis. L5-S1: Loss of disc height, eccentric toward the right. Minimal disc bulging. Mild to moderate face t degenerative changes.No focal disc herniation is present. No central spinal canal stenosis.Modera te to severe right neural foraminal stenosis. The visualized SI joints and sacrum are unremarkable. Soft tissues: The paraspinal soft tissues are unremarkable. There is enlargement of the prostate. Th ere is a focal nodule at the superior prostate impressing on the base of the bladder. There is bladd er wall thickening and trabeculation. Moderate prominent sigmoid diverticulosis. IMPRESSION: Limited exam due to artifact related to aortic stents. Scoliosis and advanced degenerative multilevel degenerative disc changes combine with facet degenerat oswald changes to cause bilateral neural foraminal narrowing as above. No central canal stenosis at any level. Small central disc protrusion at L 3 4. DATA REPOSITORY:
== END 2024-11-22 00:32 ==
LOC: DI 00:12
PROVIDERS: PCP Family Medicine; Visit Provider Anesthesiology Pain Medicine
DX: M48.062 Spinal stenosis, lumbar region with neurogenic claudication (principal)
CPT/HCPCS: 72148

== ENCOUNTER 2024-12-15 08:08 | Outpatient (RCR) | payer SELFPAY ==
[2024-11-19 00:20] VITALS: BP 138/77; PULSE 58
[2024-11-22 08:20] VITALS: BP 142/81; PULSE 61
[2024-11-24 08:17] VITALS: BP 164/72; PULSE 50
[2024-11-29 08:11] VITALS: BP 148/76; PULSE 53
[2024-12-01 08:00] VITALS: BP 118/70; PULSE 59
[2024-12-06 09:20] VITALS: BP 121/67; PULSE 66
[2024-12-08 08:07] VITALS: BP 126/75; PULSE 64
[2024-12-13 08:12] VITALS: BP 124/80; PULSE 73
[2024-12-15 08:12] VITALS: BP 128/69; PULSE 57; O2SAT 98
== END 2024-12-16 23:59 | disposition home or self-care (01) ==
LOC: CR 08:08
PROVIDERS: PCP Family Medicine; Visit Provider Internal Medicine Cardiovascular Disease
DX: R69 Illness, unspecified (principal)

== ENCOUNTER 2025-01-12 08:13 | Outpatient (RCR) | payer SELFPAY ==
[2024-12-17 00:08] VITALS: BP 138/77; PULSE 58
[2024-12-20 08:47] VITALS: BP 121/75; PULSE 60
[2024-12-22 08:19] VITALS: BP 130/78; PULSE 60
[2024-12-27 08:29] VITALS: BP 133/82; PULSE 64
[2024-12-29 08:03] VITALS: BP 121/75; PULSE 62
[2025-01-03 08:25] VITALS: BP 140/81; PULSE 61
[2025-01-05 08:14] VITALS: BP 128/73; PULSE 56
[2025-01-10 08:39] VITALS: BP 110/70; PULSE 66
[2025-01-12 08:00] VITALS: BP 126/78; PULSE 62; O2SAT 96
== END 2025-01-16 23:59 | disposition home or self-care (01) ==
LOC: CR 08:13
PROVIDERS: PCP Family Medicine; Visit Provider Internal Medicine Cardiovascular Disease
DX: R69 Illness, unspecified (principal)

== ENCOUNTER 2025-01-23 13:40 | Outpatient (CLI) | payer MEDICARE, SELFPAY ==
--- NOTE | 2025-01-23 06:45 | DI.RAD_ITS ---
Exam(s) XR PAIN CLINIC SACRIOILIAC 2V EXAM: XR PAIN CLINIC SACRIOILIAC 2V CLINICAL HISTORY: DX: Sacroiliac Dysfunction. TECHNIQUE: Fluoroscopy was provided for the referring physician for guidance with performing pain cl inic injection procedure. COMPARISON: No exams were available for comparison FINDINGS: Please see procedure note for details. Fluoro time: 22 point seconds RADIATION DOSE DELIVERED: Ka,r=5.46 mGy
[2025-01-23 13:49] VITALS: BP 149/69; PULSE 61; RESP 20; TEMP 36.7; O2SAT 97
--- NOTE | 2025-01-23 13:59 | PDOC.PAIN ---
Date of service: 01/23/25 Time of Service: 14:29 Pain Managment Procedure Note Procedure Note Procedure Note: ?Sacroiliac Joint Steroid Injection ? Location: ? Right SI Joint? Pre-procedure Diagnosis: Sacroiliitis, not elsewhere classified - M46.1 ? Post-procedure Diagnosis:? The same as above ? Sedation:? NONE ? Medication: Depo-Medrol 40 mg, bupivacaine 0.5% 1 mL, Omnipaque 0.25 mL per joint ? Estimated blood loss:? less than 2 cc ? Surgeon:? Deni Wetzel MD ? COMMENT: PT HAD GREATER THAN 50% RELIEF OF HER PAIN FOR GREATER THAN 3 MONTHS FROM PREVIOUS INJECTION ? Procedure Detail:? The procedure and potential risks were explained to the patient and informed written consent was obtained. The patient was escorted to the procedure room and placed in the prone position. Pillows were utilized for proper positioning and comfort. Time out was performed in the procedure room with nursing staff confirming the patient's identity, procedure to be performed, allergies, and any blood thinning or anti-platelet medications. The patient's lumbosacral area was prepped with ChloraPrep and draped in a sterile fashion. Sterile technique was maintained throughout the procedure.? Sterile gloves were used, a face mask was worn, and new single dose vials of all medications were used with the top being swabbed with alcohol and given time to dry prior to withdrawal of medication. Lidocaine 1% was used to anesthetize the skin. With fluoroscopic guidance, a 22-gauge 3.5 spinal needle was advanced into the posteroinferior aspect of the Right SI joint . Confirmation of position of the needle tip was obtained with injection of 0.25cc of Omnipaque 240 contrast which showed appropriate spread .? Following negative aspiration, 40mg of methylprednisolone mixed with 1 mL of bupivacaine 0.5% was injected.? The needle was gently removed. ?The patient tolerated the procedure well and was transported to the recovery area for observation and discharge instructions.? Permanent images saved and recorded. Plan:? Follow up prn. PAIN PRE PROCEDURE 10 POST PROCEDURE 010 COMMENT: 100 % BETTER AFTER INJECTION. Will repeat as needed as long as patient continues to get several months relief from injections Coding Conscious Sedation used for procedure: No CPT Codes: SI Joint Inj; incl Fluoro - 44698 ([id number] ~G) Additional Codes: Date of Service ([id number]) Date of service: 01/23/25
[2025-01-23 14:13] VITALS: PULSE 60; O2SAT 99
[2025-01-23] MEDS: Bupivacaine 0.5% Pres-Free 10 ML VIAL IJ (14:27)
[2025-01-23] MEDS: Nerve Block Tray 1 EACH MC (14:27)
[2025-01-23] MEDS: Omnipaque 240 MG/ML 50 ML BTL IJ (14:28)
[2025-01-23] MEDS: methylPREDNISolone ACETATE 80 MG/ML VIAL IJ (14:28)
== END 2025-01-23 13:41 | disposition home or self-care (01) ==
PROVIDERS: PCP Family Medicine; Visit Provider Anesthesiology Pain Medicine
DX: M46.1 Sacroiliitis, not elsewhere classified (principal); M54.50 Low back pain, unspecified
CPT/HCPCS: 27096; 72200; J0665; J1010; Q9967

== ENCOUNTER 2025-02-14 08:15 | Outpatient (RCR) | payer SELFPAY ==
[2025-01-17 00:05] VITALS: BP 138/77; PULSE 58
[2025-01-17 08:25] VITALS: BP 145/79; PULSE 63
[2025-01-19 08:00] VITALS: BP 126/71; PULSE 63; O2SAT 98
[2025-01-24 08:21] VITALS: BP 135/75; PULSE 62
[2025-01-26 08:08] VITALS: BP 160/77; PULSE 54; O2SAT 98
[2025-01-26 08:54] VITALS: BP 139/78
[2025-01-31 08:43] VITALS: BP 134/75; PULSE 71
[2025-02-02 08:16] VITALS: BP 175/73; PULSE 48
[2025-02-07 09:11] VITALS: BP 160/80; PULSE 61
[2025-02-09 08:26] VITALS: BP 121/72; PULSE 64
[2025-02-14 08:23] VITALS: BP 132/75; PULSE 59
== END 2025-02-15 23:59 | disposition home or self-care (01) ==
LOC: CR 08:15
PROVIDERS: PCP Family Medicine; Visit Provider Internal Medicine Cardiovascular Disease
DX: R69 Illness, unspecified (principal)

== ENCOUNTER 2025-03-16 08:19 | Outpatient (RCR) | payer SELFPAY ==
[2025-02-16 00:15] VITALS: BP 138/77; PULSE 58
[2025-02-16 08:42] VITALS: BP 143/76; PULSE 59
[2025-02-21 08:22] VITALS: BP 142/72; PULSE 54
[2025-02-23 08:14] VITALS: BP 128/74; PULSE 58
[2025-02-28 08:18] VITALS: BP 130/72; PULSE 56
[2025-03-02 08:07] VITALS: BP 147/76; PULSE 53
[2025-03-07 08:16] VITALS: BP 118/77; PULSE 82
[2025-03-09 08:16] VITALS: BP 155/73; PULSE 57
[2025-03-14 08:11] VITALS: BP 154/68; PULSE 50
[2025-03-16 09:34] VITALS: BP 145/85; PULSE 55
== END 2025-03-18 23:59 | disposition home or self-care (01) ==
LOC: CR 08:19
PROVIDERS: PCP Family Medicine; Visit Provider Internal Medicine Cardiovascular Disease
DX: R69 Illness, unspecified (principal)

== ENCOUNTER 2025-04-13 08:00 | Outpatient (RCR) | payer SELFPAY ==
[2025-03-19 00:22] VITALS: BP 138/77; PULSE 58
[2025-03-21 08:37] VITALS: BP 119/70; PULSE 60
[2025-03-23 09:07] VITALS: BP 131/74
[2025-03-28 09:18] VITALS: BP 146/72; PULSE 54
[2025-03-30 08:16] VITALS: BP 146/73; PULSE 57
[2025-04-04 08:35] VITALS: BP 125/75; PULSE 62
[2025-04-06 08:21] VITALS: BP 124/75; PULSE 56
[2025-04-11 08:19] VITALS: BP 118/69; PULSE 63
[2025-04-13 08:05] VITALS: BP 147/74; PULSE 58
== END 2025-04-17 23:59 | disposition home or self-care (01) ==
LOC: CR 08:00
PROVIDERS: PCP Family Medicine; Visit Provider Internal Medicine Cardiovascular Disease
DX: R69 Illness, unspecified (principal)

== ENCOUNTER 2025-05-18 08:00 | Outpatient (RCR) | payer SELFPAY ==
[2025-04-18 00:09] VITALS: BP 147/74; PULSE 58
[2025-04-18 08:15] VITALS: BP 113/71; PULSE 61
[2025-04-20 08:17] VITALS: BP 116/64; PULSE 58
[2025-04-25 09:12] VITALS: BP 122/74; PULSE 57
[2025-04-27 08:30] VITALS: BP 123/70; PULSE 62
[2025-05-02 08:28] VITALS: BP 142/72; PULSE 54
[2025-05-04 08:08] VITALS: BP 153/72; PULSE 52; O2SAT 97
[2025-05-09 08:43] VITALS: BP 128/66; PULSE 59
[2025-05-11 08:29] VITALS: BP 134/76; PULSE 56
[2025-05-16 08:31] VITALS: BP 126/76; PULSE 54
[2025-05-18 08:26] VITALS: BP 144/77; PULSE 59
== END 2025-05-18 23:59 | disposition home or self-care (01) ==
LOC: CR 08:00
PROVIDERS: PCP Family Medicine; Visit Provider Internal Medicine Cardiovascular Disease
DX: R69 Illness, unspecified (principal)

== ENCOUNTER 2025-06-15 08:00 | Outpatient (RCR) | payer SELFPAY ==
[2025-05-19 00:06] VITALS: BP 144/77; PULSE 59
[2025-05-23 08:16] VITALS: BP 148/73; PULSE 55
[2025-05-25 08:11] VITALS: BP 145/67; PULSE 60
[2025-05-30 08:29] VITALS: BP 122/72; PULSE 65
[2025-06-06 08:39] VITALS: BP 143/70; PULSE 59
[2025-06-08 08:45] VITALS: BP 121/77; PULSE 59
[2025-06-15 08:32] VITALS: BP 146/68; PULSE 58
== END 2025-06-18 23:59 | disposition home or self-care (01) ==
LOC: CR 08:00
PROVIDERS: PCP Family Medicine; Visit Provider Internal Medicine Cardiovascular Disease
DX: R69 Illness, unspecified (principal)

== ENCOUNTER 2025-06-29 11:40 | Outpatient (CLI) | payer MEDICARE, SELFPAY ==
[2025-06-29] VITALS (7 sets, daily range): BP systolic 95–194; BP diastolic 64–87; PULSE 59–65; RESP 16–23; TEMP 36.6; O2SAT 97–99
--- NOTE | 2025-06-29 12:58 | DI.RAD_ITS ---
Exam(s) XR PAIN CLINIC LUMBAR SP 2V EXAM: XR PAIN CLINIC LUMBAR SP 2V CLINICAL HISTORY: DX: Lumbar Spondylosis TECHNIQUE: 2D and realtime digital imaging was performed. Radiologist not present. CONTRAST MATERIAL: None. COMPARISON: No exams were available for comparison FINDINGS: Fluoroscopy was provided for pain management therapy. Please refer to procedure report or details. Radiation Exposure Index: Ka,r=6.42 mGy IMPRESSION: As above. RADIATION DOSE DELIVERED:
--- NOTE | 2025-06-29 12:59 | PDOC.PAIN_ITS ---
Date of service: 06/29/25 Time of Service: 13:00 Pain Managment Procedure Note Procedure Note Procedure Note: PROCEDURE NOTE Right Lumbar Medial Branch Blocks Date of Service: June 29, 2025 Patient: Carlos Parekh I Provider: Amber Khan DO, MPH Carlosdot Parekh has been [facility] for lumbar medial branch blocks. Pre-operative diagnosis: Lumbar Spondylosis without Myelopathy ICD-10 M47.816 Post-operative diagnosis: Same Pre-procedure pain: VAS= 6-7/10 COMMENTS: I evaluated him in the clinic previously. His symptoms are unchanged. Jarred was interviewed and the medical records were reviewed. There were no medical, pharmacologic, radiographic or other structural contraindications to attempting fluoroscopically guided local anesthetic lumbar medial branch blocks. Risks and potential side effects were discussed. I also discussed the potential benefit(s) of the procedure with Carlos, and voiced concerns were addressed. After Carlos was completely informed about the procedure, the printed consent form was signed. A standard time-out procedure was performed. Carlos was placed in the prone position on the fluoroscopy table. Automated blood pressure cuff and pulse oximeter were applied. The skin entry points for approaching the anatomic target points of the segmental medial branches of right L3,L4,L5 were identified with fluoroscopy and marked. The skin at the target site area was thoroughly prepared with Chlorhexadine. The skin was then draped. Next, a 25 gauge 3.5 spinal needle was placed under fluoroscopic guidance down on to the target point (the articular pillar) for each respective segmental medial branch. Position was confirmed in A/P and lateral views. Aspiration revealed no blood or clear fluid. Next, 0.25ml of omnipaque 240 was injected at each level. No contrast following a vascular or neural pattern was visualized under continuous fluoroscopy. Next, 0.25 ml of preservative-free 0.5% bupivicaine was injected at each level. There was no unusual discomfort expressed by Carlos. The needles were withdrawn without difficulty. (49 mls of Omnipaque was wasted) Carlos was observed and was without hemodynamic, neurologic, or allergic reactions.? Fluoroscopic images were digitally archived. Provacative testing using the Modified Solis's facet loading test- Right Side Directly before the block VAS (0-10) = 7/10 Five minutes after the block VAS (0-10) = 0/10 Percentage relief obtained with this diagnostic block 100% Any improved physical functioning directly after the blocks? Able to move his low back with ease. Follow up plans and appointments were discussed with Carlos. Carlos was instructed to keep careful note of how the usual pain was modified by these injections. Specifically, to keep a pain diary for the next 4 hours using a numeric pain scale of 0-10 and report these results. Post procedure instruction was given as documented in the nursing documentation and having met discharge criteria, the patient was [facility]. Based on the medial branches blocked today, if they patient has adequate relief and we are able to proceed to radiofrequency ablation, the treatment should result in the denervation of the right L4-L5 and L5-S1 facet joints. We would expect to denervate a total of 2 facets during the radiofrequency ablation. COMMENTS: No apparent complications. Post-procedure pain: VAS= 0/10 Carlos will call back with 0-4 hour post-procedure pain scores. I personally performed the entire procedure. AMBER KHAN DO, MPH ABPM&R-subspecialty board certification in Pain Medicine [facility] Coding Conscious Sedation used for procedure: No CPT Codes: LMBB (includes Fluoro) Lumbar/Sacral, single lvl - 59321 ([id number] ~G) LMBB (includes Fluoro) Lumbar/Sacral, 2nd lvl - 57015 ([id number] ~G) RT - RIGHT SIDE Additional Codes: Date of Service (46321) Date of service: 06/29/25 Diagnoses: lumbosacral spondylosis without myelopathy
[2025-06-29] MEDS: Bupivacaine 0.5% Pres-Free 10 ML VIAL IJ (13:07)
[2025-06-29] MEDS: Nerve Block Tray 1 EACH MC (13:07)
[2025-06-29] MEDS: Omnipaque 240 MG/ML 50 ML BTL IJ (13:07)
== END 2025-06-29 11:41 | disposition home or self-care (01) ==
LOC: PC 11:41
PROVIDERS: PCP Family Medicine; Visit Provider Preventive Medicine Occupational Medicine
DX: M54.50 Low back pain, unspecified (principal); M47.816 Spondylosis without myelopathy or radiculopathy, lumbar region
CPT/HCPCS: 64493; 64494; 72100; J0665; Q9967

== ENCOUNTER 2025-07-18 08:00 | Outpatient (RCR) | payer SELFPAY ==
[2025-06-20 08:39] VITALS: BP 127/70; PULSE 61
[2025-06-22 08:27] VITALS: BP 171/74; PULSE 52
[2025-06-27 08:15] VITALS: BP 140/74; PULSE 59
[2025-06-29 08:22] VITALS: BP 142/70; PULSE 65
[2025-07-04 08:29] VITALS: BP 152/73; PULSE 53
[2025-07-06 09:15] VITALS: BP 128/74; PULSE 60
[2025-07-11 08:16] VITALS: BP 134/66; PULSE 59
[2025-07-18 08:08] VITALS: BP 137/69; PULSE 53
== END 2025-07-18 23:59 | disposition home or self-care (01) ==
LOC: CR 08:00
PROVIDERS: PCP Family Medicine; Visit Provider Internal Medicine Cardiovascular Disease
DX: R69 Illness, unspecified (principal)

== ENCOUNTER 2025-07-22 18:04 | Observation (INO) | payer MEDICARE, SELFPAY ==
[2025-07-22] VITALS (74 sets, daily range): BP systolic 138–235; BP diastolic 67–168; PULSE 57–83; RESP 14–29; TEMP 36.9; O2SAT 92–100
--- NOTE | 2025-07-22 18:00 | RT.EKG_ITS ---
APPROVED REPORT Exam: Resting ECG Reason for Exam: Chest Pain Patient Location: E HR:60 bpm ECG Measurements Heart Rate 60 AXIS MA 180 P 20 QRSd 115 QRS -57 QT 469 T 150 QTc 469 Conclusion Sinus rhythm...normal P axis, V-rate 60- 99 LVH with IVCD, LAD and secondary repol abnrm...multi-criteria, wQRSd, abnr ST-T. No STEMI.
--- NOTE | 2025-07-22 18:15 | DI.CT_ITS ---
Exam(s) CT HEAD WO EXAM: CT HEAD WO CLINICAL HISTORY: parasthesias. TECHNIQUE: Imaging Protocol: Axial computed tomography images with coronal and sagittal reformatted images were created and reviewed COMPARISON: No exams were available for comparison FINDINGS: There are no skull fractures. There is no fluid in the visualized paranasal sinuses. There is no evidence of intracranial hemorrhage, mass effect, or shift of midline structures. There are no asymmetric extra-axial fluid collections. There is advanced symmetrical involutional change and the size of the ventricles is commensurate with the size of the overlying cortical sulci. There is also atrophy of the anterior aspect of the temporal lobes in both middle cranial fossae evident. Also frontal atrophy. There is mild bilateral symmetrical periventricular hypodensity consistent with chronic small vessel disease. IMPRESSION: No acute intracranial findings on this noninfused CT scan of the brain. Symmetrical advanced atrophy. There may be an element of frontotemporal atrophy here. Correlation with clinical findings recommended. Findings called by myself to the ER physician on 07/22/2025 at 7:07 pm. RADIATION DOSE DELIVERED: 887.74mGy.cm Total DLP DATA REPOSITORY: All CT scans at this facility are submitted to the National Radiology Data Registry (NRDR) Dose Index Registry (DIR) with the [employer] ([employer]). RADIATION OPTIMIZATION: All CT scans at this facility use at least one of these dose optimization techniques: automated exposure control; mA and/or kV adjustment per patient size (includes targeted exams where dose is matched to clinical indication); or iterative reconstruction.
[2025-07-22 18:33] LABS: HCT 38.5 % (40.0-50.0); HGB 13.6 g/dL (13.5-17.5); MCH 32.5 pg (27.0-33.0); MCHC 35.3 % (32.0-36.0); MCV 92 fL (80-95); MPV 10.6 fL (8.0-11.0); Platelet Count 164 10^3/uL (130-400); RBC 4.19 10^6/uL (4.36-5.78); RDW 13.2 % (11.8-14.1); RDW-SD 43.9 fL; WBC 10.94 10^3/uL (4.4-10.8)
--- NOTE | 2025-07-22 18:42 | W.ED.GENAD ---
Discharge Plan Disposition Patient Disposition: Admit to [facility] Discharge Details Clinical Impression: Hypertensive urgency, CHF (congestive heart failure) Primary Care Provider: Sheila Fontanez V ED Provider: Rocael Null Home Meds and New Rx's Prescriptions: No Action metoprolol succinate 25 mg tablet extended release 24 hr 25 mg PO DAILY losartan 50 mg tablet 50 mg PO DAILY clopidogrel [Plavix] 75 mg tablet 75 mg PO DAILY acetaminophen 325 mg capsule 325 mg PO ONCE PRN isosorbide mononitrate 30 mg tablet extended release 24 hr 30 mg PO DAILY pantoprazole 40 mg tablet,delayed release (DR/EC) 40 mg PO DAILY aspirin [Lo-Dose Aspirin] 81 MG tablet,delayed release (DR/EC) 81 mg PO DAILY multivitamin Tablet 1 tab PO DAILY sertraline 100 mg Tablet 150 mg PO DAILY nitroglycerin 0.4 mg Tablet, Sublingual 0.4 mg SUBLINGUAL Q5M PRN Patient Comments: prn calcium carbonate [Calcium 600] 600 mg calcium (1,500 mg) Tablet 600 mg PO BID glucosamine sulfate 500 mg Capsule 1,000 mg PO BID atorvastatin 40 mg tablet 40 mg PO QPM Patient Comments: TAKE 1 TABLET BY MOUTH EVERY NIGHT omeprazole 20 mg Capsule,Delayed Release(Dr/Ec) 20 mg PO DAILY albuterol sulfate [Ventolin HFA] 90 mcg/actuation Hfa Aerosol Inhaler 2 puff INHALATION QID PRN Patient Comments: prn Fish Oil 1,000 mg Capsule 1 cap PO BID hydrochlorothiazide 12.5 mg tablet 12.5 mg PO QAM atorvastatin 80 mg tablet 80 mg PO DAILY Patient Comments: TAKE 1 TABLET BY MOUTH EVERY DAY HPI General Date/Time Provider Initiated Documentation: 07/22/25 18:26. HPI Narrative: This is an 85-year-old male with a baseline history of peripheral vascular disease, coronary artery disease presenting to the emergency department with a chief complaint of paresthesias. Patient states that he was cleaning his floor and when he got up he felt very sweaty. He sat in the chair. He states he then had pins and needle sensation in his right hand and his right foot. This resolved spontaneously. His chest felt funny. He decided he to come in for further evaluation. No headache. No nausea or vomiting. No shortness of breath. Patient denies chest pain, stating that it simply feels funny. No recent cough or fever. No dysuria or hematuria. No swelling. No recent injuries. Patient states that sometimes his symptoms are associated with some left shoulder discomfort. He takes a nitro for this. He estimates about once a week. Related Data Home Medications ?Medication ?Instructions ?Recorded ?Confirmed aspirin 81 mg tablet,delayed 81 mg PO DAILY 08/24/13 07/22/25 release (Lo-Dose Aspirin) calcium carbonate (Calcium 600) 600 mg PO BID 05/15/19 07/22/25 glucosamine sulfate 500 mg capsule 1,000 mg PO BID 05/15/19 07/22/25 Held on 07/22/25. Instructions: Pt Stopped/Never Started multivitamin 1 tab PO DAILY 05/15/19 07/22/25 nitroglycerin 0.4 mg sublingual 0.4 mg sublingual Q5M PRN 05/15/19 07/22/25 tablet sertraline 100 mg tablet 150 mg PO DAILY 05/15/19 07/22/25 albuterol sulfate 90 mcg/actuation 2 puff inhalation QID PRN 03/26/21 07/22/25 aerosol inhaler (Ventolin HFA) omega-3 fatty acids-vitamin E 1 cap PO BID 03/26/21 07/22/25 1,000 mg capsule omeprazole 20 mg capsule,delayed 20 mg PO DAILY 03/26/21 07/22/25 release hydrochlorothiazide 12.5 mg tablet 12.5 mg PO QAM 10/17/21 07/22/25 losartan 50 mg tablet 50 mg PO DAILY 10/17/21 07/22/25 metoprolol succinate 25 mg 25 mg PO DAILY 10/17/21 07/22/25 tablet,extended release 24 hr atorvastatin 40 mg tablet 40 mg PO QPM 12/14/23 07/22/25 Held on 07/22/25. Instructions: Changed by Provider clopidogrel 75 mg tablet (Plavix) 75 mg PO DAILY 06/02/24 07/22/25 acetaminophen 325 mg capsule 325 mg PO ONCE PRN 06/08/24 07/22/25 isosorbide mononitrate 30 mg 30 mg PO DAILY 06/08/24 07/22/25 tablet,extended release 24 hr pantoprazole 40 mg tablet,delayed 40 mg PO DAILY 06/08/24 07/22/25 release atorvastatin 80 mg tablet 80 mg PO DAILY 07/22/25 07/22/25 Allergies Allergy/AdvReac Type Severity Reaction Status Date / Time codeine Allergy head fuzzy Unverified 07/22/25 18:17 meperidine HCl (From Demerol) Allergy confusion Unverified 07/22/25 18:17 Sulfa (Sulfonamide Allergy Agitation Unverified 07/22/25 18:17 Antibiotics) lisinopril AdvReac Mild cough Unverified 07/22/25 18:17 levofloxacin (From Levaquin) AdvReac Other (See Unverified 07/22/25 18:17 Comment) General Stated Complaint: Chest Pain KIARA: 3 Review of Systems All systems reviewed & are unremarkable except as noted in HPI and below Constitutional Constitutional: Reports system reviewed and no additional complaints, except as documented, Denies fever(s), Denies weakness and Denies weight loss Eyes Eyes: Denies blurry vision ENT Ears, Nose, Mouth, and Throat: Denies sore throat Cardiovascular Cardiovascular: Denies chest pain, Denies palpitations, Denies dyspnea and Reports other (Chest feels funny) Respiratory Respiratory: Denies cough, Denies dyspnea and Denies wheezing Gastrointestinal Gastrointestinal: Denies abdominal pain, Denies diarrhea, Denies nausea and Denies vomiting Genitourinary Genitourinary: Denies hematuria and Denies dysuria Musculoskeletal Musculoskeletal: Denies back pain, Denies arthralgias and Denies numbness Neurologic Neurologic: Denies numbness, Reports paresthesias and Denies weakness Psychiatric Psychiatric: Denies suicidal ideation Endocrine Endocrine: Denies palpitations Allergic/Immunologic Allergic/Immunologic: Denies wheezing Exam Const General: no acute distress and well groomed HENMT Mouth: oral mucosae normal and moist mucous membranes Throat: posterior oropharynx normal Eyes Conjunctivae: conjunctivae normal Sclera: sclerae normal Neck Neck: full ROM and No JVD Resp Effort & Inspection: normal respiratory effort Auscultation: clear to auscultation bilaterally Cardio Rate: regular rate Rhythm: regular rhythm Heart Sounds: no murmurs GI Palpation: soft and nontender Skin General skin exam: no rashes or lesions noted Neuro General: patient alert and patient oriented x3 Extrem General: normal to inspection and full ROM Psych Appearance: grossly normal Mental Status: mental status grossly normal Speech and Movement: speech and movement normal Affect: normal affect Thought Process: normal Course Vital Signs Vital signs: Vital Signs Pulse 60 07/22/25 18:05 Respiratory Rate 16 10/04/25 18:05 Blood Pressure 219/71 H 07/22/25 18:05 Pulse Oximetry 99 07/22/25 18:05 Pulse 60 07/22/25 18:05 Respiratory Rate 16 07/22/25 18:05 Blood Pressure 219/71 H 07/22/25 18:05 Pulse Oximetry 99 07/22/25 18:05 Oxygen Delivery Method Room Air 07/22/25 18:05 Oxygen Flow Rate 0 07/22/25 18:05 Lab/Test Results Lab/Test Results: Laboratory Tests Range/Units 07/22/25 18:19 WBC (4.4-10.8) 10^3/uL 10.94 H RBC (4.36-5.78) 10^6/uL 4.19 L Hgb (13.5-17.5) g/dL 13.6 Hct (40.0-50.0) % 38.5 L MCV (80-95) fL 92 MCH (27.0-33.0) pg 32.5 MCHC (32.0-36.0) % 35.3 RDW (11.8-14.1) % 13.2 Plt Count (130-400) 10^3/uL 164 MPV (8.0-11.0) fL 10.6 Medical Decision Making This is an 85-year-old male presenting to the emergency department with a chief complaint of paresthesias. The patient was seen and examined by me. Old charts were reviewed and nursing notes were reviewed. The patient was placed on a tractor drill operator with IV access. He has already been given an aspirin by EMS. Patient did have a visit in 2023 to this emergency department with chest pain. This was unremarkable in its findings. Patient's blood pressure is markedly elevated. I will initiate a nitroglycerin to see if this changes his blood pressure and symptoms since this is what he has been using in the past. EKG reviewed by me shows sinus rhythm at 60 bpm. VT interval is 180. QRS is 115. QTc is 469. There is LVH. No STEMI. BNP was elevated at greater than 1000, approximately 3 times where he has been running historically. Serial troponins were negative. Other labs are clinically unremarkable. Chest x-ray did not show any infiltrates. There were numerous efforts were made to control the patient's blood pressure which has been persistently hypertensive. Initially he was provided nitroglycerin which she has taken in the past for similar symptoms although not as severe. This was followed with labetalol, hydralazine, Lasix. Systolic blood pressure was at a high of 230 and has improved to about 180. I suspect that symptoms are secondary to hypertensive urgency with afterload resulting in CHF. Case was discussed with the hospitalist service and the patient will be admitted for further management. [facility] All Active Problems (Updated 07/22/25 @ 22:01 by Rocael Null MD) CHF (congestive heart failure) (Chronic) Hypertensive urgency (Acute) Lumbosacral spondylosis without myelopathy (Acute) Right lumbar radiculitis (Acute) Sacroiliac joint dysfunction of right side (Acute) Unilateral post-traumatic osteoarthritis, right hip (Acute) Hx of skin cancer, basal cell (Acute) Neoplasm of unspecified behavior of bone, soft tissue, and skin (Acute) Pleural effusion (Acute) Medical History Seasonal affective disorder Encounter for routine adult health examination Followed by Sheila Fontanez MD Alteration in cardiovascular system Implantation to cardiovascular system. Clinically stable. Follows vascular annually. Impacted cerumen of right ear Pain of right hip joint Atherosclerosis of coronary artery without angina pectoris History of fracture History of recurrent pneumonia Ascites Dyspnea Carotid bruit Fatigue Osteogenesis imperfecta Senile osteoporosis Pain of right lower extremity Muscle pain Pain in thoracic spine Hip pain Osteoarthritis Benign prostatic hyperplasia Disorder of kidney and ureter Low blood pressure 12/2019 Stricture of artery Peripheral vascular disease Abdominal aortic aneurysm (AAA) without rupture Carotid artery stenosis Disorder of pericardium Hypertension Essential HTN. Not currently under control Polyneuropathy Developmental academic disorder Nicotine dependence Erectile dysfunction Depression recurrent major depression Hypokalemia Hyperlipidemia Surgical History History of heart artery stent Stent placement 2010 History of tonsillectomy History of cholecystectomy History of appendectomy History of elbow surgery left elbow fracture 60 years ago. Ulnar transposition left elbow within 5 years. Hx of hernia repair 2002 Social History Smoking/Tobacco Use Status: Former Tobacco Use Smoking risk assessment performed?: Yes Alcohol Intake: never Drug use: Never Substance use type: does not use Housing: house Do you feel safe at home: Yes Do you feel safe in your relationship?: Yes
[2025-07-22 18:51] LABS: Anion Gap 14.0 mmol/L (3-11); BUN 20 mg/dL (7-18); CO2 24.0 mmol/L (21.0-32.0); Calcium 9.4 mg/dL (8.5-10.1); Chloride 103 mmol/L (98-107); Estimated GFR 49.87 (mL/min/1.73m2); Glucose 141 mg/dL (74-106); Potassium 3.5 mmol/L (3.5-5.1); Sodium 141 mmol/L (136-145); Troponin I 17 ng/L (<or=76)
[2025-07-22] MEDS: nitroGLYcerin 0.4 MG TAB SL (18:59)
[2025-07-22] MEDS: Ondansetron 4 MG/2 ML VIAL IVP (19:25)
[2025-07-22] MEDS: Labetalol 100 MG/20 ML VIAL 10 MG IVP (19:25)
--- NOTE | 2025-07-22 19:45 | DI.RAD_ITS ---
Exam(s) XR CHEST 2V PA LATERAL EXAM: XR CHEST 2V PA LATERAL CLINICAL HISTORY: sob. TECHNIQUE: 2D digital imaging was performed. COMPARISON: No exams were available for comparison FINDINGS: 2 views: Again noted is the presence of an abdominal aortic EVAR Left ventricular prominence is again noted. The mediastinum is not widened. There are no infiltrates nor pleural effusions. No CHF. No pneumothorax. IMPRESSION: No acute pulmonary findings. Abdominal aortic EVAR/vascular stent in place DATA REPOSITORY: RADIATION DOSE DELIVERED:
[2025-07-22 19:54] LABS: Troponin I 38 ng/L (<or=76)
[2025-07-22] MEDS: hydrALAZINE 20 MG/ML VIAL 10 MG IVP (20:07)
[2025-07-22 20:17] LABS: NT-proBNP 1109 pg/mL (<300)
[2025-07-22 20:32] LABS: Glucose Negative (Negative)
[2025-07-22 20:42] LABS: C & S Indicated? No; RBC 0-2 HPF (0-2); WBC 0-2 HPF (0-5)
[2025-07-22 20:51] LABS: COVID-19 PCR Negative (Negative); RSV PCR Negative (Negative)
[2025-07-22] MEDS: Furosemide 40 MG/4 ML VIAL IVP (20:54)
[2025-07-22 21:47] LABS: Troponin I 55 ng/L (<or=76)
--- NOTE | 2025-07-22 22:20 | W.PM.HP.N ---
Date of service: 07/22/25 Time of Service: 22:20 Assessment and Plan Assessment and plan (1) Hypertensive urgency: Status: Acute Assessment and plan: Restarted his home meds and have added hydralazine as needed. Will need to have optimized in the outpatient setting. Try to avoid clonidine as there does appear to be bradycardia for titration in his medications. (2) CHF (congestive heart failure): Status: Chronic Assessment and plan: Will order an echo for as soon as possible. DVT prophylaxis with Lovenox (3) Nicotine dependence: Assessment and plan: Patient denies any current nicotine use but is on albuterol so I do have concerns about potential COPD will continue with his medication History of Present Illness History of Present Illness Chief Complaint: sob and htn Narrative: Patient is a 85-year-old gentleman with a known history of hypertension coronary artery disease aortic aneurysm status post repair CHF who presents to the ED today with worsening shortness of breath as well as paresthesia. Patient was treated with multiple antihypertensives in the ED but as of 2199 still had a blood pressure of over 183 systolic. At that time call was made to the hospitalist service for admission. Per my discussion with Mr. Moreno states he been taking his medication as prescribed. I have reviewed his chart and apparently he did get a chemical stress test in November 2023 which was nondiagnostic. The patient usually sees a engineering mechanic in [place]. In reviewing of his data his triple screen for virus is negative, his BNP is 1109, troponins are flat. EKG does show left axis deviation as well as LVH. His last echo was on October 2015. The patient does have remote history of tobacco use. In further discussion with the patient he states he did have his aneurysm repaired but apparently this was done endoscopically with a plethora of stents and the patient states it is over 30. Patient denies any open surgeries. Patient is unclear why he had this first intervention done. Patient states that this was done at [facility] now but at this point I do not have any records. Patient currently denies any chest pain but does have mild shortness of breath Review of Systems All systems reviewed & are unremarkable except as noted in HPI and below PFSH All Active Problems (Updated 07/22/25 @ 22:01 by Rocael Null MD) CHF (congestive heart failure) (Chronic) Hypertensive urgency (Acute) Lumbosacral spondylosis without myelopathy (Acute) Right lumbar radiculitis (Acute) Sacroiliac joint dysfunction of right side (Acute) Unilateral post-traumatic osteoarthritis, right hip (Acute) Hx of skin cancer, basal cell (Acute) Neoplasm of unspecified behavior of bone, soft tissue, and skin (Acute) Pleural effusion (Acute) Medical History Seasonal affective disorder Encounter for routine adult health examination Followed by Sheila Fontanez MD Alteration in cardiovascular system Implantation to cardiovascular system. Clinically stable. Follows vascular annually. Impacted cerumen of right ear Pain of right hip joint Atherosclerosis of coronary artery without angina pectoris History of fracture History of recurrent pneumonia Ascites Dyspnea Carotid bruit Fatigue Osteogenesis imperfecta Senile osteoporosis Pain of right lower extremity Muscle pain Pain in thoracic spine Hip pain Osteoarthritis Benign prostatic hyperplasia Disorder of kidney and ureter Low blood pressure 12/2019 Stricture of artery Peripheral vascular disease Abdominal aortic aneurysm (AAA) without rupture Carotid artery stenosis Disorder of pericardium Hypertension Essential HTN. Not currently under control Polyneuropathy Developmental academic disorder Nicotine dependence Erectile dysfunction Depression recurrent major depression Hypokalemia Hyperlipidemia Surgical History History of heart artery stent Stent placement 2010 History of tonsillectomy History of cholecystectomy History of appendectomy History of elbow surgery left elbow fracture 60 years ago. Ulnar transposition left elbow within 5 years. Hx of hernia repair 2002 Social History Smoking/Tobacco Use Status: Former Tobacco Use Smoking risk assessment performed?: Yes Alcohol Intake: never Drug use: Never Substance use type: does not use Housing: house Do you feel safe at home: Yes Do you feel safe in your relationship?: Yes Meds Allergies and Home Medications Allergies Allergy/AdvReac Type Severity Reaction Status Date / Time codeine Allergy head fuzzy Unverified 07/22/25 18:17 meperidine HCl (From Demerol) Allergy confusion Unverified 07/22/25 18:17 Sulfa (Sulfonamide Allergy Agitation Unverified 07/22/25 18:17 Antibiotics) lisinopril AdvReac Mild cough Unverified 07/22/25 18:17 levofloxacin (From Levaquin) AdvReac Other (See Unverified 07/22/25 18:17 Comment) Home Medications ?Medication ?Instructions ?Recorded ?Confirmed ?Type aspirin 81 mg tablet,delayed 81 mg PO DAILY 08/24/13 07/22/25 History release (Lo-Dose Aspirin) calcium carbonate (Calcium 600) 600 mg PO BID 05/15/19 07/22/25 History glucosamine sulfate 500 mg capsule 1,000 mg PO BID 05/15/19 07/22/25 History Held on 07/22/25. Instructions: Pt Stopped/Never Started multivitamin 1 tab PO DAILY 05/15/19 07/22/25 History nitroglycerin 0.4 mg sublingual 0.4 mg sublingual Q5M PRN 05/15/19 07/22/25 History tablet sertraline 100 mg tablet 150 mg PO DAILY 05/15/19 07/22/25 History albuterol sulfate 90 mcg/actuation 2 puff inhalation QID PRN 03/26/21 07/22/25 History aerosol inhaler (Ventolin HFA) omega-3 fatty acids-vitamin E 1 cap PO BID 03/26/21 07/22/25 History 1,000 mg capsule omeprazole 20 mg capsule,delayed 20 mg PO DAILY 03/26/21 07/22/25 History release hydrochlorothiazide 12.5 mg tablet 12.5 mg PO QAM 10/17/21 07/22/25 History losartan 50 mg tablet 50 mg PO DAILY 10/17/21 07/22/25 History metoprolol succinate 25 mg 25 mg PO DAILY 10/17/21 07/22/25 History tablet,extended release 24 hr atorvastatin 40 mg tablet 40 mg PO QPM 12/14/23 07/22/25 History Held on 07/22/25. Instructions: Changed by Provider clopidogrel 75 mg tablet (Plavix) 75 mg PO DAILY 06/02/24 07/22/25 History acetaminophen 325 mg capsule 325 mg PO ONCE PRN 06/08/24 07/22/25 History isosorbide mononitrate 30 mg 30 mg PO DAILY 06/08/24 07/22/25 History tablet,extended release 24 hr pantoprazole 40 mg tablet,delayed 40 mg PO DAILY 06/08/24 07/22/25 History release atorvastatin 80 mg tablet 80 mg PO DAILY 07/22/25 07/22/25 History Exam Narrative Exam Narrative: HEENT-normocephalic atraumatic mucous membranes moist oropharynx clear Neck-no lymphadenopathy no JVD no thyromegaly Cardiovascular-regular rate and rhythm no murmur rubs gallops Lungs-clear to auscultation bilaterally with good air exchange Abdomen-soft nontender nondistended no surgical scars Extremities no sinus clubbing or edema Neurologic nonfocal Results Labs 07/22/25 18:19 07/22/25 18:19 Labs: Laboratory Results - last 24 hr 07/22/25 07/22/25 07/22/25 18:19 19:32 20:05 WBC 10.94 H RBC 4.19 L Hgb 13.6 Hct 38.5 L MCV 92 MCH 32.5 MCHC 35.3 RDW 13.2 Plt Count 164 MPV 10.6 Sodium 141 Potassium 3.5 Chloride 103 Carbon Dioxide 24.0 Anion Gap 14.0 H BUN 20 H Creatinine 1.4 H Est GFR (CKD-EPI 2020) 49.87 Glucose 141 H Calcium 9.4 Troponin I 17 38 NT-Pro-B Natriuret Pep 1109 H Urine Color Urine Clarity Urine pH Ur Specific [place] Urine Protein Urine Ketones Urine Blood Urine Nitrite Urine Bilirubin Urine Urobilinogen Ur Leukocyte Esterase Urine RBC Urine WBC Ur Epithelial Cells Urine Crystals Urine Bacteria Urine Casts Urine Mucus Ur Culture Indicated? Urine Glucose COVID-19 Source Nasopharynx SARS-CoV-2 (PCR) Negative Influenza Type A (PCR) Negative Influenza Type B (PCR) Negative RSV (PCR) Negative 07/22/25 07/22/25 20:23 21:22 WBC RBC Hgb Hct MCV MCH MCHC RDW Plt Count MPV Sodium Potassium Chloride Carbon Dioxide Anion Gap BUN Creatinine Est GFR (CKD-EPI 2020) Glucose Calcium Troponin I 55 NT-Pro-B Natriuret Pep Urine Color Yellow Urine Clarity Clear Urine pH 7.5 Ur Specific [place] 1.020 Urine Protein 30 H Urine Ketones 40 H Urine Blood Negative Urine Nitrite Negative Urine Bilirubin Negative Urine Urobilinogen 1.0 H Ur Leukocyte Esterase Negative Urine RBC 0-2 Urine WBC 0-2 Ur Epithelial Cells Rare Urine Crystals Negative Urine Bacteria Rare Urine Casts 0-2 Hyaline Urine Mucus Trace Ur Culture Indicated? No Urine Glucose Negative COVID-19 Source SARS-CoV-2 (PCR) Influenza Type A (PCR) Influenza Type B (PCR) RSV (PCR) Last Vital Signs Pulse 72 07/22/25 22:10 Resp 18 07/22/25 22:10 BP 154/117 H 07/22/25 22:01 Pulse Ox 98 07/22/25 22:10 Time Spent Time spent with Patient: <40 minutes Time was spent: preparing to see the patient(eg.review tests), obtaining and/or reviewing separately otained hiistory, ordering medications,tests, procedures, referring, communicating with other health child care team lead, indepentently interpreting results, counseling the patient and care coordination
--- NOTE | 2025-07-22 22:51 | DI.VRAD_ITS ---
PROCEDURE INFORMATION: Exam: XR Chest Exam date and time: 07/22/2025 8:43 PM Age: 85 years old Clinical indication: Shortness of breath; SOB TECHNIQUE: Imaging protocol: Radiologic exam of the chest. Views: 2 views. COMPARISON: CT Thorax^CHEST W ROUTINE (Adult) 11/12/2018 9:20 AM FINDINGS: Lungs: The lung erwin are clear. No infiltrates or consolidation. Pleural spaces: No effusions or pneumothoraces. Heart/Mediastinum: The heart is normal in size. The superior mediastinum is unremarkable. The patient has an abdominal aortic stent in place. Bones/joints: There are mild degenerative changes of the thoracic spine and a levoscoliosis but no acute bony change. IMPRESSION: 1. No acute infiltrate effusion or pneumothorax. This is course does not exclude pulmonary emboli. 2. The patient has an abdominal aortic vascular stent in place. Dictated and Authenticated by: Luis Manuel Braden MD. Orderin Chaka Cote MD
[2025-07-23] VITALS (10 sets, daily range): BP systolic 94–192; BP diastolic 51–100; PULSE 54–75; RESP 16–18; TEMP 36–36.7; O2SAT 92–99
[2025-07-23] MEDS: Enoxaparin 40 MG/0.4 ML SYR SC ×2 (00:44→21:31)
--- NOTE | 2025-07-23 01:00 | W.PC.ACHO ---
Registration Status: ADM INES Primary Language: Preferred Language: Romanian ED Information & Data Chief Complaint Chest Pain 07/22/25 18:50 Triage Note approx 1500 right sided 07/22/25 18:05 tingling in fingers and leg for couple hours, became sweaty with weird feelings in chest. denies tingling at this time. Blood sugar 139 in trg Medical / Surgical History (Last Reviewed 07/22/25 @ 18:49 by Rocael Null MD) Seasonal affective disorder Encounter for routine adult health examination Alteration in cardiovascular system Impacted cerumen of right ear Pain of right hip joint Atherosclerosis of coronary artery History of fracture History of recurrent pneumonia Ascites Dyspnea Carotid bruit Fatigue Osteogenesis imperfecta Senile osteoporosis Pain of right lower extremity Muscle pain Pain in thoracic spine Hip pain Osteoarthritis Benign prostatic hyperplasia Disorder of kidney and ureter Low blood pressure Stricture of artery Peripheral vascular disease Abdominal aortic aneurysm (AAA) without rupture Carotid artery stenosis Disorder of pericardium Hypertension Polyneuropathy Developmental academic disorder Nicotine dependence Erectile dysfunction Depression Hypokalemia Hyperlipidemia (Last Reviewed 07/22/25 @ 18:49 by Rocael Null MD) History of heart artery stent History of tonsillectomy History of cholecystectomy History of appendectomy History of elbow surgery Hx of hernia repair Most Recent Vital Signs Temperature 36.0 C L 07/23/25 00:28 Pulse 72 07/23/25 00:28 Pulse 76 07/22/25 23:40 Respiratory Rate 18 07/23/25 00:28 Respiratory Effort Normal 07/23/25 00:28 Respiratory Depth Normal 07/23/25 00:28 Respiratory Pattern Normal 07/23/25 00:28 Blood Pressure 177/80 H 07/23/25 00:28 Blood Pressure Mean 95 07/22/25 23:31 Pulse Oximetry 97 07/23/25 00:28 Oxygen Delivery Method Room Air 07/23/25 00:28 Oxygen Flow Rate 0 07/23/25 00:28 Pain Level 0 07/23/25 00:28 Allergies codeine Allergy (Unverified 07/23/25 00:18) head fuzzy meperidine HCl (From Demerol) Allergy (Unverified 07/23/25 00:18) confusion Sulfa (Sulfonamide Antibiotics) Allergy (Unverified 07/23/25 00:18) Agitation lisinopril Adverse Reaction (Mild, Unverified 07/23/25 00:18) cough levofloxacin (From Levaquin) Adverse Reaction (Unverified 07/23/25 00:18) Other (See Comment) Nightmares Precautions Isolation Standard precaution 07/22/25 18:48 Active Medications Generic Name Dose Route Start Last Admin Trade Name Tha PRN Reason Stop Dose Admin Enoxaparin Sodium 40 mg 07/22/25 23:00 07/23/25 00:44 Enoxaparin 40 Mg/0.4 Ml Syr SC 40 mg Q24H MAYRA Administration IV IV Catheter Type [Left Peripheral IV Antecubital] IV Catheter Gauge [Left 18 Antecubital] Diet Orders Category Date Time Status Regular/Normal [DIET] Nutrition 07/23/25 Breakfast Active Diagnostics 07/23/25 07/22/25 07/22/25 Range/Units 05:35 21:22 20:23 WBC Pending (4.4-10.8) 10^3/uL RBC Pending (4.36-5.78) 10^6/uL Hgb Pending (13.5-17.5) g/dL Hct Pending (40.0-50.0) % MCV Pending (80-95) fL MCH Pending (27.0-33.0) pg MCHC Pending (32.0-36.0) % RDW Pending (11.8-14.1) % Plt Count Pending (130-400) 10^3/uL MPV Pending (8.0-11.0) fL Immature Gran % Pending Neutrophils % Pending Lymphocytes % Pending Monocytes % Pending Eosinophils % Pending Basophils % Pending Absolute Neutrophils Pending Absolute Lymphocytes Pending Absolute Monocytes Pending Absolute Eosinophils Pending Absolute Basophils Pending Sodium Pending (136-145) mmol/L Potassium Pending (3.5-5.1) mmol/L Chloride Pending (98-107) mmol/L Carbon Dioxide Pending (21.0-32.0) mmol/L Anion Gap Pending (3-11) mmol/L BUN Pending (7-18) mg/dL Creatinine Pending (0.70-1.30) mg/dL Est GFR (CKD-EPI 2020) Pending (mL/min/1.73m2) Glucose Pending (74-106) mg/dL Calcium Pending (8.5-10.1) mg/dL Total Bilirubin Pending AST Pending ALT Pending Alkaline Phosphatase Pending Troponin I 55 (<or=76) ng/L NT-Pro-B Natriuret Pep (<300) pg/mL Total Protein Pending Albumin Pending Urine Color Yellow (Yellow) Urine Clarity Clear (Clear) Urine pH 7.5 (5-8) Ur Specific [place] 1.020 (1.005-1.025) Urine Protein 30 H (Neg-Trace) mg/dL Urine Ketones 40 H (Negative) mg/dL Urine Blood Negative (Negative) Urine Nitrite Negative (Negative) Urine Bilirubin Negative (Negative) Urine Urobilinogen 1.0 H (Up to 0.2) mg/dL Ur Leukocyte Esterase Negative (Negative) Urine RBC 0-2 (0-2) HPF Urine WBC 0-2 (0-5) HPF Ur Epithelial Cells Rare (Negative) HPF Urine Crystals Negative (Negative) HPF Urine Bacteria Rare (Negative) HPF Urine Casts 0-2 Hyaline (Negative) LPF Urine Mucus Trace (Negative) Ur Culture Indicated? No Urine Glucose Negative (Negative) mg/dL COVID-19 Source SARS-CoV-2 (PCR) (Negative) Influenza Type A (PCR) (Negative) Influenza Type B (PCR) (Negative) RSV (PCR) (Negative) 07/22/25 07/22/25 07/22/25 Range/Units 20:05 19:32 18:19 WBC 10.94 H (4.4-10.8) 10^3/uL RBC 4.19 L (4.36-5.78) 10^6/uL Hgb 13.6 (13.5-17.5) g/dL Hct 38.5 L (40.0-50.0) % MCV 92 (80-95) fL MCH 32.5 (27.0-33.0) pg MCHC 35.3 (32.0-36.0) % RDW 13.2 (11.8-14.1) % Plt Count 164 (130-400) 10^3/uL MPV 10.6 (8.0-11.0) fL Immature Gran % Neutrophils % Lymphocytes % Monocytes % Eosinophils % Basophils % Absolute Neutrophils Absolute Lymphocytes Absolute Monocytes Absolute Eosinophils Absolute Basophils Sodium 141 (136-145) mmol/L Potassium 3.5 (3.5-5.1) mmol/L Chloride 103 (98-107) mmol/L Carbon Dioxide 24.0 (21.0-32.0) mmol/L Anion Gap 14.0 H (3-11) mmol/L BUN 20 H (7-18) mg/dL Creatinine 1.4 H (0.70-1.30) mg/dL Est GFR (CKD-EPI 2020) 49.87 (mL/min/1.73m2) Glucose 141 H (74-106) mg/dL Calcium 9.4 (8.5-10.1) mg/dL Total Bilirubin AST ALT Alkaline Phosphatase Troponin I 38 17 (<or=76) ng/L NT-Pro-B Natriuret Pep 1109 H (<300) pg/mL Total Protein Albumin Urine Color (Yellow) Urine Clarity (Clear) Urine pH (5-8) Ur Specific [place] (1.005-1.025) Urine Protein (Neg-Trace) mg/dL Urine Ketones (Negative) mg/dL Urine Blood (Negative) Urine Nitrite (Negative) Urine Bilirubin (Negative) Urine Urobilinogen (Up to 0.2) mg/dL Ur Leukocyte Esterase (Negative) Urine RBC (0-2) HPF Urine WBC (0-5) HPF Ur Epithelial Cells (Negative) HPF Urine Crystals (Negative) HPF Urine Bacteria (Negative) HPF Urine Casts (Negative) LPF Urine Mucus (Negative) Ur Culture Indicated? Urine Glucose (Negative) mg/dL COVID-19 Source Nasopharynx SARS-CoV-2 (PCR) Negative (Negative) Influenza Type A (PCR) Negative (Negative) Influenza Type B (PCR) Negative (Negative) RSV (PCR) Negative (Negative) [id number] Documentation Fingerstick Glucose Start: 07/22/25 18:19 Freq: Status: Active Protocol: Activity Type Activity Date Activity User E-sign Co-sign Detail Recorded Client Recorded Date Recorded By Document 07/22/25 18:11 BKG DAEMON(3) [id number] 07/22/25 18:19 BKG DAEMON(4) Intake and Output - 24 Hour Total 07/22/25 17:57 thru 07/23/25 00:40 Intake Total 50 Output Total 900 Balance -850 Weight 70.398 kg Intake: Oral 50 Output: Urine 900 Other: Urine Color Yellow Urine Appearance Clear # Voids 2 Falls Risk Assessment History of Falls No History 07/23/25 00:28 Contributing Factors Unstable,Medications 07/23/25 00:28 Ambulatory Aids Uses ambulatory device 07/23/25 00:28 Tubes/Lines None 07/23/25 00:28 Gait Evaluation W/no contributing factors 07/23/25 00:28 Cognition No cognitive impairment 07/22/25 18:50 Fall Total Score 31 07/23/25 00:28 Level of Risk Moderate Risk 07/23/25 00:28 Problems (Last Reviewed 07/22/25 @ 18:49 by Rocael Null MD) CHF (congestive heart failure) (Chronic) Hypertensive urgency (Acute) v v v v v v v v v Sending and/or Receiving Nurses: Please use comment section below to note any information pertinent to the patient hand-off not included above. Information / Comments: High BP, numbness on tight side of patient body, trop WDL, EKG WDL, head CT normal, SBP 200, pt given hydralazin 1o, labetolol, lasix, zofran at the ER, current BP 151/67, urine out put 700ml. NSR on tele Report received from: Lupis SERRATO
[2025-07-23 06:57] LABS: Abs Immature Grans 0.03 10^3/uL (0.0-0.06); HCT 40.9 % (40.0-50.0); HGB 14.3 g/dL (13.5-17.5); Immature Grans % 0.3 %; MCH 32.2 pg (27.0-33.0); MCHC 35.0 % (32.0-36.0); MCV 92 fL (80-95); MPV 10.6 fL (8.0-11.0); Platelet Count 204 10^3/uL (130-400); RBC 4.44 10^6/uL (4.36-5.78); RDW 13.3 % (11.8-14.1); RDW-SD 45.0 fL; WBC 9.96 10^3/uL (4.4-10.8)
[2025-07-23 07:17] LABS: ALT 22 U/L (16-63); AST 35 U/L (15-37); Albumin 4.2 g/dL (3.4-5.0); Alkaline Phosphatase 96 U/L (46-116); Anion Gap 14.4 mmol/L (3-11); BUN 23 mg/dL (7-18); Bilirubin, Total 0.9 mg/dL (0.2-1.0); CO2 24.6 mmol/L (21.0-32.0); Calcium 9.1 mg/dL (8.5-10.1); Chloride 103 mmol/L (98-107); Estimated GFR 54.51 (mL/min/1.73m2); Glucose 114 mg/dL (74-106); Potassium 3.3 mmol/L (3.5-5.1); Sodium 142 mmol/L (136-145); Total Protein 8.1 g/dL (6.4-8.2)
[2025-07-23] MEDS: Calcium Carbonate 1.5 GM TAB PO ×2 (08:00→21:27)
[2025-07-23] MEDS: Multivitamin TAB 1 TAB PO (08:00)
[2025-07-23] MEDS: Omega-3 Fatty Acids 1000 MG CAP PO ×2 (08:00→21:27)
[2025-07-23] MEDS: hydroCHLOROthiazide 12.5 MG TAB PO (08:00)
[2025-07-23] MEDS: Isosorbide Mononitrate 30 MG TABCR PO (08:01)
[2025-07-23] MEDS: Pantoprazole 40 MG TABCR PO (08:01)
[2025-07-23] MEDS: Losartan 50 MG TAB PO (08:01)
[2025-07-23] MEDS: Sertraline 100 MG TAB 150 MG PO (08:01)
[2025-07-23] MEDS: Aspirin E.C. 81 MG TABEC PO (08:01)
[2025-07-23] MEDS: Clopidogrel 75 MG TAB PO (08:01)
[2025-07-23] MEDS: Metoprolol CR 25 MG TABCR PO (08:01)
--- NOTE | 2025-07-23 08:42 | PDOC.CMIN ---
Date of service: 07/23/25 Time of Service: 08:42 Care Management Initial Assmt Initial Assessment Reason for Hospitalization: hypertensive urgency Functional Status/Living Situation Patient Presentation: Carlos was lying in bed when CM met with him. He was very pleasant in interaction and easily engaged with CM. Carlos lives alone in a single family home in [facility]. Carlos is ; his about 3 years ago. He had 3 sons but one of them about a year ago at age 48 from a sudden heart attack. His son Amadou splits his time between [place], [place] and [facility]. His son Carlos lives about a mile down the road from him and visits nearly every day. 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 It was a job he liked that paid well and had good benefits. Carlos was admitted with hypertension. He initially had some paresthesia of his right arm and leg but that resolved, On admission to the ED his SBP was well over 200. Carlos is scheduled to have an Echo and an MRI tomorrow. He has been started on antihypertensive medication and his SBP has been in the 150s to 170s most of the day. Town of Residence: [place] Resides with: Alone Significant Other/Family: Local Natural Supports: sons Amadou and Carlos Employment Status: Retired Instrumental Activities of Daily Living (ADLs): Independent Medications Medication Management: No Issues/Barriers identified Physical Functioning/Mobility Assistive Device: has walker. wheelchair, crutches, cane Advance Directives Advance Directives: Do you have an Advance Directive: N 07/22/25, 17:57 AD On File at [facility]: N 07/22/25, 17:57 Date Asked 07/22/25 07/22/25, 18:06 AD Date Reviewed COLST On File at [facility] No 07/22/25, 18:06 COLST Date Scanned Code Status Resuscitation Status Full Code Portal Pt does not currently have a portal and education provided: Yes Insurance Coverage/Financial Issues Insurance: Medicare [facility] supplement Care Team Visit Care Team Role Provider Type Vasquez Taylor MD MD [facility] STAFF PHYSICIAN Sheila Fontanez MD Primary Care Provider [facility] STAFF PHYSICIAN Hamzah Jc Other Providers OTHER Rocael Null MD Emergency Provider [facility] STAFF PHYSICIAN Geo Nyoola MD Admit Provider [facility] STAFF PHYSICIAN Attending Provider Discharge Potential Discharge Needs: PCP F/U Appt Anticipated Barriers to Discharge: None Identified Patient/Family Education Needs: Review discharge instructions, discuss Ask Me Three Transportation: Private vehicle Plan: Anticipate Carlos will be discharged home with no new services when medically cleared. He will follow up with Cardiology and his PCP and transport with family. CM will follow and continue to assess for discharge needs. Social Determinants of Health Screening Will the Patient Participate in the Screening?: Declined to provide Problems where you live: no known problems PFSH All Active Problems (Updated 07/23/25 @ 14:43 by Roya Larkin NP) Emphysema lung (Acute) CHF (congestive heart failure) (Chronic) Hypertensive urgency (Acute) Lumbosacral spondylosis without myelopathy (Acute) Right lumbar radiculitis (Acute) Sacroiliac joint dysfunction of right side (Acute) Unilateral post-traumatic osteoarthritis, right hip (Acute) Hx of skin cancer, basal cell (Acute) Neoplasm of unspecified behavior of bone, soft tissue, and skin (Acute) Pleural effusion (Acute) Medical History Seasonal affective disorder Encounter for routine adult health examination Followed by Sheila Fontanez MD Alteration in cardiovascular system Implantation to cardiovascular system. Clinically stable. Follows vascular annually. Impacted cerumen of right ear Pain of right hip joint Atherosclerosis of coronary artery without angina pectoris History of fracture History of recurrent pneumonia Ascites Dyspnea Carotid bruit Fatigue Osteogenesis imperfecta Senile osteoporosis Pain of right lower extremity Muscle pain Pain in thoracic spine Hip pain Osteoarthritis Benign prostatic hyperplasia Disorder of kidney and ureter Low blood pressure 12/2019 Stricture of artery Peripheral vascular disease Abdominal aortic aneurysm (AAA) without rupture Carotid artery stenosis Disorder of pericardium Hypertension Essential HTN. Not currently under control Polyneuropathy Developmental academic disorder Nicotine dependence Erectile dysfunction Depression recurrent major depression Hypokalemia Hyperlipidemia Surgical History History of heart artery stent Stent placement 2010 History of tonsillectomy History of cholecystectomy History of appendectomy History of elbow surgery left elbow fracture 60 years ago. Ulnar transposition left elbow within 5 years. Hx of hernia repair 2002 Social History Smoking/Tobacco Use Status: Former Tobacco Use Smoking risk assessment performed?: Yes Alcohol Intake: never Drug use: Never Substance use type: does not use Housing: house Do you feel safe at home: Yes Do you feel safe in your relationship?: Yes
--- NOTE | 2025-07-23 12:37 | W.PM.PROGNOT ---
Date of Service Date of service: 07/23/25 Time of Service: 12:37 Assessment and Plan Assessment and plan (1) Hypertensive urgency: Status: Acute Assessment and plan: Hypertensive urgency. Current bradycardia limits use of certain agents such as clonidine for titration BP 177/80 0030 (Oldest) 154/72 0130 137/100 0330 166/80 0530 166/78 0700 148/71 1045 112/51 1415 (newest) Restart home antihypertensive medications. Add hydralazine as needed for acute blood pressure control. Optimize blood pressure regimen in the outpatient setting. Avoid clonidine due to bradycardia risk. Monitor vital signs and watch for symptoms of hypotension or worsening bradycardia. (2) CHF (congestive heart failure): Status: Chronic Assessment and plan: ProBNP 1100; lungs clear, no dependent edema Echo Thursday (3) Emphysema lung: Status: Acute Assessment and plan: Mild emphysema noted on CT 11/12/2018 Patient denies current nicotine use. On albuterol at home. No acute respiratory distress noted. Continue current respiratory medications, including albuterol as needed. Monitor for symptoms such as shortness of breath, wheezing, or increased sputum production. Consider outpatient pulmonary evaluation and/or spirometry if clinically indicated; recommend pulmonology consult. Reinforce avoidance of smoking and other respiratory irritants. Subjective Subjective Patient reports: no new complaints Exam Narrative Exam Narrative: HEENT: Normocephalic, atraumatic. Mucous membranes moist. Oropharynx clear. Neck: No lymphadenopathy, no JVD, no thyromegaly. Cardiovascular: Regular rate and rhythm. No murmurs, rubs, or gallops. Pulmonary: Clear to auscultation bilaterally, good air exchange. Abdomen: Soft, nontender, nondistended. No surgical scars. Extremities: No clubbing, cyanosis, or edema. Neurologic: No abnormal movements, tremors, or deficits noted Objective Last Vital Signs Temp 36.5 C 07/23/25 10:41 Pulse 58 L 07/23/25 10:41 Resp 16 07/23/25 10:41 BP 148/71 H 07/23/25 10:41 Pulse Ox 97 07/23/25 10:41 Laboratory Results - last 24 hr 07/22/25 07/22/25 07/22/25 18:19 19:32 20:05 WBC 10.94 H RBC 4.19 L Hgb 13.6 Hct 38.5 L MCV 92 MCH 32.5 MCHC 35.3 RDW 13.2 Plt Count 164 MPV 10.6 Immature Gran % Neutrophils % Lymphocytes % Monocytes % Eosinophils % Basophils % Nucleated RBC % Absolute Neutrophils Absolute Lymphocytes Absolute Monocytes Absolute Eosinophils Absolute Basophils Sodium 141 Potassium 3.5 Chloride 103 Carbon Dioxide 24.0 Anion Gap 14.0 H BUN 20 H Creatinine 1.4 H Est GFR (CKD-EPI 2020) 49.87 Glucose 141 H Calcium 9.4 Total Bilirubin AST ALT Alkaline Phosphatase Troponin I 17 38 NT-Pro-B Natriuret Pep 1109 H Total Protein Albumin Urine Color Urine Clarity Urine pH Ur Specific [place] Urine Protein Urine Ketones Urine Blood Urine Nitrite Urine Bilirubin Urine Urobilinogen Ur Leukocyte Esterase Urine RBC Urine WBC Ur Epithelial Cells Urine Crystals Urine Bacteria Urine Casts Urine Mucus Ur Culture Indicated? Urine Glucose COVID-19 Source Nasopharynx SARS-CoV-2 (PCR) Negative Influenza Type A (PCR) Negative Influenza Type B (PCR) Negative RSV (PCR) Negative 07/22/25 07/22/25 07/23/25 20:23 21:22 06:24 WBC 9.96 RBC 4.44 Hgb 14.3 Hct 40.9 MCV 92 MCH 32.2 MCHC 35.0 RDW 13.3 Plt Count 204 MPV 10.6 Immature Gran % 0.3 Neutrophils % 79.5 Lymphocytes % 11.5 Monocytes % 8.2 Eosinophils % 0.3 Basophils % 0.2 Nucleated RBC % 0.0 Absolute Neutrophils 7.91 H Absolute Lymphocytes 1.15 L Absolute Monocytes 0.82 H Absolute Eosinophils 0.03 Absolute Basophils 0.02 Sodium 142 Potassium 3.3 L Chloride 103 Carbon Dioxide 24.6 Anion Gap 14.4 H BUN 23 H Creatinine 1.3 Est GFR (CKD-EPI 2020) 54.51 Glucose 114 H Calcium 9.1 Total Bilirubin 0.9 AST 35 ALT 22 Alkaline Phosphatase 96 Troponin I 55 NT-Pro-B Natriuret Pep Total Protein 8.1 Albumin 4.2 Urine Color Yellow Urine Clarity Clear Urine pH 7.5 Ur Specific [place] 1.020 Urine Protein 30 H Urine Ketones 40 H Urine Blood Negative Urine Nitrite Negative Urine Bilirubin Negative Urine Urobilinogen 1.0 H Ur Leukocyte Esterase Negative Urine RBC 0-2 Urine WBC 0-2 Ur Epithelial Cells Rare Urine Crystals Negative Urine Bacteria Rare Urine Casts 0-2 Hyaline Urine Mucus Trace Ur Culture Indicated? No Urine Glucose Negative COVID-19 Source SARS-CoV-2 (PCR) Influenza Type A (PCR) Influenza Type B (PCR) RSV (PCR) Time Spent with Patient Time Spent with Patient: 35-49 minutes Time was spent: preparing to see the patient(eg.review tests), ordering medications,tests, procedures, referring, communicating with other health direct support professional caregiver, indepentently interpreting results, counseling the patient and care coordination
[2025-07-23] MEDS: Potassium Chloride 20 MEQ TABCR 40 MEQ PO (12:48)
--- NOTE | 2025-07-23 13:03 | PHA.REVIEW2 ---
Pharmacy Admission Review Admission Clinical Review Admission Pharmacy Review: Hypertensive urgency (Acute) codeine Allergy (Unverified 07/23/25 00:18) head fuzzy meperidine HCl (From Demerol) Allergy (Unverified 07/23/25 00:18) confusion Sulfa (Sulfonamide Antibiotics) Allergy (Unverified 07/23/25 00:18) Agitation lisinopril Adverse Reaction (Mild, Unverified 07/23/25 00:18) cough levofloxacin (From Levaquin) Adverse Reaction (Unverified 07/23/25 00:18) Other (See Comment) Resuscitation Status Full Code Height 5 ft 6 in Weight 70.398 kg Pharmacy Admission Review Renal Dosing Renal Dosing: BUN 23 mg/dL (7-18) H 07/23/25 06:24 Creatinine 1.3 mg/dL (0.70-1.30) 07/23/25 06:24 Medications needing adjustments: Reviewed (CrCl 42.87 mL/min, BUN increased from 20 and SCr decreased from 1.4) List of meds needing interventions: Current medications are okay Anticoagulation Anticoagulation: Hgb 14.3 g/dL (13.5-17.5) 07/23/25 06:24 Hct 40.9 % (40.0-50.0) 07/23/25 06:24 Plt Count 204 10^3/uL (130-400) 07/23/25 06:24 Creatinine 1.3 mg/dL (0.70-1.30) 07/23/25 06:24 DVT Prophylaxis: Reviewed Medications: Enoxaparin (40mg daily) Relevant Labs Relevant Labs: Sodium 142 mmol/L (136-145) 07/23/25 06:24 Potassium 3.3 mmol/L (3.5-5.1) L 07/23/25 06:24 Chloride 103 mmol/L (98-107) 07/23/25 06:24 Electrolytes, C-Reactive P, ESR: Reviewed (recieved 40 mEq PO potassium this afternoon) Cardiac Review Cardiac Review: Troponin I 55 ng/L (<or=76) 07/22/25 21:22 NT-Pro-B Natriuret Pep 1109 pg/mL (<300) H 07/22/25 19:32 Blood Pressure 148/71 1041 Blood Pressure 166/78 0709 Blood Pressure 166/80 0530 Blood Pressure 137/100 0330 Blood Pressure 154/72 0128 BP, HR, EF%: Reviewed (HR 58) List meds needing interventions: Has orders for HCTZ 12.5mg daily, isosorbide mononitrate CR 30mg daily, losartan 50mg daily and metoprolol XL 25mg daily. Also has an order for hydralazine 10mg IVP q4h PRN - 1 dose given in the past 24 hours. QTc Review QTc: Reviewed (469 from 07/22/25) IV to PO Switch IV Medications: Reviewed (PRN hydralazine) Home Meds Home Med List reviewed: Reviewed Current Meds Current Medication Order Review: Intervened Comments: Changed nitroglycerin frequency per pharmacy protocol Changed pantoprazole timing from 0830 to 0730 per pharmacy protocol Discontinued duplicate Miralax order Added IV access order
--- NOTE | 2025-07-23 13:41 | IN_ITS ---
PT Notes Visit Reasons: htn urgency Inpatient Physical Therapy Evaluation Date: 07/23/25 Referring Doctor: Dr. Noyola Patient Profile/Admitting Diagnosis: hypertension urgency PMHX: Seasonal affective disorder Encounter for routine adult health examination Followed by Sheila Fontanez MD Alteration in cardiovascular system Implantation to cardiovascular system. Clinically stable. Follows vascular annually.Impacted cerumen of right ear Pain of right hip joint Atherosclerosis of coronary artery without angina pectoris History of fracture History of recurrent pneumonia Ascites Dyspnea Carotid bruit Fatigue Osteogenesis imperfecta Senile osteoporosis Pain of right lower extremity Muscle pain Pain in thoracic spine Hip pain Osteoarthritis Benign prostatic hyperplasia Disorder of kidney and ureter Low blood pressure Stricture of artery Peripheral vascular disease Abdominal aortic aneurysm (AAA) without rupture - stents placed Carotid artery stenosis Disorder of pericardium Hypertension Essential HTN. Not currently under control Polyneuropathy Developmental academic disorder Nicotine dependence Erectile dysfunction Depression recurrent major depression Hypokalemia Hyperlipidemia Social History/Home Situation: Lives alone in home, does have stairs to manage from the front but can go around the back where there is a ramp, son lives about a mile away and checks in on him daily, he still drives Current Functional Limitations: has two power chairs, a rollator, and a RW that he uses throughout his day, he notes that he has a lot of arthritis in his right hip that prevents him from putting complete pressure down on that side. Subjective: Pt was admitted with significant hypertension (200+ systolic) and having shortness of breath. He states he had been washing his floors the day before and did not feel right. Ever since last week he notes feeling off. He feels sleepy today and states that his vision has not been right. He does feel somewhat better than yesterday. Objective: General Observation: well-appearing, relaxing in chair, son is present Mental Status: A+Ox4 Pain: pain in right hip during standing activities Vital Signs: seated - 140/77 standing - 109/66 with symptoms of lightheadedness ROM: full AROM throughout bilat UEs and LEs Strength: Able to perform SLR, heel slide, ankle DF/PF bilaterally with ease Sensation: Full sensation noted Bed Mobility/Transfers: sit to stand w/CGA stand to sit w/CGA bed to chair w/CGA chair to bed w/CGA Gait: able to perform 3 steps forward and 3 steps backward w/CGA and use of RW but due to lightheadness symptoms ambulation was discontinued Balance: Static Sitting: good Dynamic Sitting: good Static Standing: fair Dynamic Standing: fair Special Tests: Mobility Limitations Standardized Measure [facility] AM-PAC 6 clicks Basic Mobility Inpatient Short Form: Raw Score: 17 CMS Score: 50.57% Informed Consent/Education: Patient instructed in purpose of PT consult and plan of care. Assessment: Patient had positive orthostatics today as his BP dropped significantly when going from sitting to standing. He is mainly limited by his cardiovascular symptoms as he seems to have the necessary strength to progress with ambulation. However, this was not able to be attempted much due to his lightheadedness. He does seem to have a supportive family that checks in on him but he may require STR as he does live alone. If he is able to progress with his ambulation, then home health PT will be considered. He will continue to be followed by PT services in the hospital to progress him as tolerated. Patient is assessed as a [x] Moderate 96263 complexity based on the following: History: Moderate Examination: Moderate Presentation: Moderate Decision Making: Moderate Goals: Goals X1 week 1. Supine-Sit w/SBA 2. Sit-Supine w/SBA 3. Sit-Stand w/SBA 4. Stand-Sit w/SBA 5. Bed-Chair w/SBA 6. Chair-Bed w/SBA 7. Gait - 150 ft w/RW and SBA Plan of Care/Treatment Plan: 1-2x/day, 7 days/week x 1 week. Plan of care has been reviewed with the [employer] providing the service under Physical Therapy direction. Initiate Physical Therapy intervention for strengthening, bed mobility, transfers, gait, stairs, balance training, use of assistive device. DISCHARGE RECOMMENDATIONS: [x] SNF versus home health PT based on patient progress TREATMENT CODE/TIME: Moderate Eval (44443) x1 - 30 min
[2025-07-23] MEDS: Normal Saline 250 ML 500 ML IV (18:07)
[2025-07-23] MEDS: Atorvastatin 40 MG TAB 80 MG PO (21:27)
[2025-07-23] MEDS: Normal Saline Flush 10 ML SYR IVP (21:31)
--- NOTE | 2025-07-24 | DI.CT_ITS ---
Exam(s) CT BRAIN NECK CTA EXAM: CT BRAIN NECK CTA CLINICAL HISTORY: Stroke like symptoms; MRI showing possible occlusi. TECHNIQUE: Imaging Protocol: Axial CT angiography was performed with multi- slice acquisition and multi-planar and/or 3D reconstructions. CONTRAST MATERIAL: Intravenous: Omnipaque 350 Contrast volume:structured data in ml COMPARISON: CT CT HEAD WO from 07/22/2025 MR MR BRAIN WO from 07/24/2025 FINDINGS: CTA Neck W: Aortic arch anatomy: The aortic arch anatomy is conventional and there is no significant stenosis at the origin of the great vessels off of the aortic arch. However, there is an endovascular stent in place at the bifurcation of the brachiocephalic artery into the right common carotid and right subclavian arteries. This stent is across the proximal aspect of the right subclavian artery and there is no intra stent stenosis. Proximal aspect of the stent does not appear to be occluding the origin of the right common carotid artery. Scratch Anterior circulation: Right common carotid artery ascends with normal luminal diameter. There is significant calcified and noncalcified plaque at the right carotid bulb and proximal right ICA with approximately 70-80 percent stenosis in the proximal right ICA. The right ICA in the upper neck is patent as well as in the skull base-carotid canal. The left common carotid artery exhibits no significant stenosis at its origin. Ascends with normal luminal diameter. There is significant plaque at the left carotid bulb and proximal left ICA. There is approximately 50 percent luminal diameter stenosis at this level. Above this level the left internal carotid artery in the upper neck is patent. It exhibits some disease in the left carotid canal within the skull base. Posterior circulation: The right vertebral artery is dominant. Exhibits mild stenosis at its origin off the right subclavian artery. Its origin off the right subclavian arteries distal to the subclavian artery stent. The right vertebral artery ascends in the foramen transverse area with luminal diameter of 5 mm. At the skull base it is the sole contributor to the formation of the basilar artery. The left vertebral artery is occluded at its origin where there is significant plaque on the medial wall of the left subclavian artery at this level. The left vertebral artery is reconstituted at C2 level. However, above this level it is either highly stenotic or occluded due to prominent plaque and calcification at its distal most aspect. CTA Brain W: Anterior circulation: There is calcified plaque in the intra cavernous internal carotid arteries bilaterally but no high-grade stenosis. The supraclinoid aspects of the ICAs are patent. Both A1 segments are patent as are the anterior cerebral arteries and there is no evidence of aneurysm at the level of the anterior communicating artery. Both middle cerebral arteries are patent with no evidence of significant stenosis nor intraluminal thrombus. There also no aneurysms of these vessels. Posterior circulation: Basilar artery ascends without significant stenosis. Distally it gives off patent superior cerebellar arteries. Above this level it terminates as a patent left posterior cerebral artery. The right posterior cerebral artery is supplied by posterior communicating artery on the right side of the [id number]. There is no evidence of aneurysm at the tip of the basilar artery nor elsewhere in the [id number]. CT BRAIN: There is no evidence of intracranial hemorrhage, new mass effect, or shift of midline structures. There are no extra-axial fluid collections. There is symmetrical atrophy noted, as evident on recent brain MRI. Appears to have a frontotemporal pattern of atrophy.. No evidence of obvious acute infarct on CT scan. There are no ring enhancing lesions in the brain. No abnormal meningeal enhancement. IMPRESSION: 1. There is atherosclerotic disease in both carotid arteries in the neck with approximately 70-80 percent stenosis in the right carotid bulb-proximal right ICA and approximately 50 percent stenosis at the left carotid bulb-proximal left ICA level. 2. The left vertebral artery is occluded at its origin and reconstituted distally at C2 level although there appears to be significant high-grade stenosis at its junction with the right vertebral artery to form the basilar artery. The right vertebral artery is dominant and the main contributor to the formation of the basilar artery at the skull base.. 3. Patent anterior circulation in the brain. The right posterior cerebral artery is supplied by posterior communicating artery on the right side of the [id number]. The left posterior cerebral artery is supplied in conventional fashion from the tip of the basilar artery. 4. Symmetrical frontotemporal atrophy. No ring enhancing lesions in the brain and no abnormal meningeal enhancement, focal nor diffuse. No obvious acute infarct. 5. Incidentally noted is an endovascular stent in the proximal right subclavian artery in the chest. Report called to hospitalist nurse-practitioner 07/24/2025 at 3:58 p.m. RADIATION DOSE DELIVERED: 2,081.63mGy.cm Total DLP DATA REPOSITORY: All CT scans at this facility are submitted to the National Radiology Data Registry (NRDR) Dose Index Registry (DIR) with the [employer] (A[employer]). RADIATION OPTIMIZATION: All CT scans at this facility use at least one of these dose optimization techniques: automated exposure control; mA and/or kV adjustment per patient size (includes targeted exams where dose is matched to clinical indication); or iterative reconstruction.
[2025-07-24 03:52] VITALS: BP 132/66; PULSE 65; RESP 17; TEMP 36.6; O2SAT 95
[2025-07-24 06:00] LABS: Abs Immature Grans 0.03 10^3/uL (0.0-0.06); HCT 41.6 % (40.0-50.0); HGB 14.2 g/dL (13.5-17.5); Immature Grans % 0.3 %; MCH 32.5 pg (27.0-33.0); MCHC 34.1 % (32.0-36.0); MCV 95 fL (80-95); MPV 10.5 fL (8.0-11.0); Platelet Count 176 10^3/uL (130-400); RBC 4.37 10^6/uL (4.36-5.78); RDW 13.5 % (11.8-14.1); RDW-SD 47.0 fL; WBC 9.52 10^3/uL (4.4-10.8)
[2025-07-24] MEDS: Pantoprazole 40 MG TABCR PO (06:35)
[2025-07-24 06:51] LABS: Anion Gap 12.6 mmol/L (3-11); BUN 24 mg/dL (7-18); CO2 24.4 mmol/L (21.0-32.0); Calcium 9.6 mg/dL (8.5-10.1); Chloride 104 mmol/L (98-107); Estimated GFR 49.87 (mL/min/1.73m2); Glucose 104 mg/dL (74-106); Magnesium 2.2 mg/dL (1.8-2.4); Potassium 4.1 mmol/L (3.5-5.1); Sodium 141 mmol/L (136-145)
[2025-07-24 07:26] VITALS: BP 171/68; PULSE 55; RESP 17; TEMP 36.5; O2SAT 98
[2025-07-24] MEDS: Aspirin E.C. 81 MG TABEC PO (09:01)
[2025-07-24] MEDS: Multivitamin TAB 1 TAB PO (09:01)
[2025-07-24] MEDS: Losartan 50 MG TAB PO (09:01)
[2025-07-24] MEDS: Calcium Carbonate 1.5 GM TAB PO ×2 (09:02→19:43)
[2025-07-24] MEDS: hydroCHLOROthiazide 12.5 MG TAB PO (09:03)
[2025-07-24] MEDS: Clopidogrel 75 MG TAB PO (09:03)
[2025-07-24] MEDS: Omega-3 Fatty Acids 1000 MG CAP PO ×2 (09:03→19:43)
[2025-07-24] MEDS: Isosorbide Mononitrate 30 MG TABCR PO (09:04)
[2025-07-24] MEDS: Sertraline 100 MG TAB 150 MG PO (09:05)
[2025-07-24 09:33] VITALS: BP 104/70; BP 146/82; BP 170/61; PULSE 60; PULSE 69; PULSE 76
[2025-07-24] MEDS: Metoprolol CR 25 MG TABCR 12.5 MG PO (10:07)
--- NOTE | 2025-07-24 11:30 | DI.MRI_ITS ---
Exam(s) MR BRAIN WO EXAM: MR BRAIN WO CLINICAL HISTORY: Stroke like symptoms, numbness, weakness right TECHNIQUE: Multiplanar multisequence MRI of the brain was performed. COMPARISON: CT CT HEAD WO from 07/22/2025 FINDINGS: The examination is limited due to patient motion artifact. VENTRICLES AND EXTRA AXIAL SPACES: There is advanced generalized atrophy present. MIDLINE SHIFT: None. CEREBRAL PARENCHYMA: No focus of restricted diffusion to suggest acute infarct. No space-occupying lesion identified. There are areas of hyperintense signal seen in the white matter on the FLAIR and T2 weighted images consistent with chronic microvascular ischemic disease. HEMORRHAGE: None. BRAINSTEM/CEREBELLUM: Normal. CALVARIUM: Normal. VISUALIZED PARANASAL SINUSES/MASTOIDS:Clear. [place]: There is loss of the normal flow void in the distal left vertebral artery. [place]IT[place]: Unremarkable. OTHER FINDINGS: None. IMPRESSION: 1. There is no evidence of an acute infarct. 2. Advanced generalized cerebral atrophy and chronic microvascular ischemic disease. 3. Loss of the normal flow void in the distal left vertebral artery. This may represent occlusion. CT angiography of the neck should be considered for further characterization. DATA REPOSITORY:
--- NOTE | 2025-07-24 11:37 | W.NUTRFU ---
Date of service: 07/24/25 Time of Service: 11:37 Nutrition Note NOTE: Pt chart reviewed. Good intake reported on regular diet. Pt has elevated BUNCr today at 24/1.4. Nutrition related labs not of concern. weight hx stable. discharge anticipated pending MRI and echo. Pt initially assessed as lower nutrition risk. Will be availible in for any outpatient services she may desire. Will monitor for changes until discharge Time Spent in Nutritional Counseling and Treatment: 0
--- NOTE | 2025-07-24 12:52 | NUR.NOTE ---
Nursing Note: Documentation by Danna Crooks, JAYLEN student reviewed.
--- NOTE | 2025-07-24 14:39 | PT.INTREAT ---
PT Notes Visit Reasons: HTN Urgency Inpatient Physical Therapy Treatment Note [facility] Date: 07/24/25 SUBJECTIVE: Carlos states that he is doing better. He is waiting to hear results of his US and MRI. If all is clear, he should go home this afternoon. OBJECTIVE: []? PAIN: none VITALS: ? monitored by nsg. Therapeutic Activities ([id number])20 min: Direct one-on-one instruction in dynamic activities to improve functional performance. ?? BED MOBILITY/TRANSFERS? Rolling L/R: I Supine-sit: I ? Sit-supine: I ? Sit-stand: I? Stand-sit: I ? Provided skilled cues and instruction on performance and technique throughout. GAIT? Assistive Device: FWW? Weight bearing: FWB Assist: SBA? Distance:?approx 50' x2? Deviation: slow natty with shortened stride length. One seated rest x 5min.? ASSESSMENT:? no c/o lightheadedness this pm. He is strong and safe to go home once medically cleared. PLAN: possible d/c home later today. If he remains, will continue to work on functional mobility per POC. TREATMENT CODE/TIME: 20 min. [id number]. DISCHARGE RECOMMENDATION: HHPT
[2025-07-24] MEDS: Omnipaque 350 MG/ML 100 ML BTL IJ (15:07)
[2025-07-24] MEDS: Normal Saline Flush 10 ML SYR IVP ×2 (15:07→19:44)
[2025-07-24] MEDS: Normal Saline - Diluent 50 ML VIAL IJ (15:07)
--- NOTE | 2025-07-24 16:41 | W.PM.DS.N ---
Date of service: 07/24/25 Time of Service: 16:41 DS: Diagnosis Discharge Diagnosis (1) Hypertensive urgency: Status: Acute (2) CHF (congestive heart failure): Status: Chronic (3) Emphysema lung: Status: Acute Discharge Plan Discharge Details Reason For Visit: HTN Urgency Admit Date/Time: 07/22/25 22:15 Admit Provider: Geo Noyola Attending Provider: Geo Noyola Primary Care Provider: Sheila Fontanez V Home Meds and New Rx's Prescriptions: No Action metoprolol succinate 25 mg tablet extended release 24 hr 25 mg PO DAILY losartan 50 mg tablet 50 mg PO DAILY clopidogrel [Plavix] 75 mg tablet 75 mg PO DAILY acetaminophen 325 mg capsule 325 mg PO ONCE PRN isosorbide mononitrate 30 mg tablet extended release 24 hr 30 mg PO DAILY pantoprazole 40 mg tablet,delayed release (DR/EC) 40 mg PO DAILY aspirin [Lo-Dose Aspirin] 81 MG tablet,delayed release (DR/EC) 81 mg PO DAILY multivitamin Tablet 1 tab PO DAILY sertraline 100 mg Tablet 150 mg PO DAILY nitroglycerin 0.4 mg Tablet, Sublingual 0.4 mg SUBLINGUAL Q5M PRN Patient Comments: prn calcium carbonate [Calcium 600] 600 mg calcium (1,500 mg) Tablet 600 mg PO BID glucosamine sulfate 500 mg Capsule 1,000 mg PO BID albuterol sulfate [Ventolin HFA] 90 mcg/actuation Hfa Aerosol Inhaler 2 puff INHALATION QID PRN Patient Comments: prn Fish Oil 1,000 mg Capsule 1 cap PO BID hydrochlorothiazide 12.5 mg tablet 12.5 mg PO QAM atorvastatin 80 mg tablet 80 mg PO DAILY Patient Comments: TAKE 1 TABLET BY MOUTH EVERY DAY DS: Data Vitals/I&O Vitals and I&O: Vital Signs Temperature 36.5 C 07/24/25 07:26 Temperature Source Temporal Artery Scan 07/24/25 07:26 Pulse 69 07/24/25 09:33 Pulse 76 07/22/25 23:40 Respiratory Rate 17 07/24/25 07:26 Respiratory Effort Normal 07/23/25 00:28 Respiratory Depth Normal 07/23/25 00:28 Respiratory Pattern Normal 07/23/25 00:28 Blood Pressure 104/70 07/24/25 09:33 Blood Pressure Mean 102 07/24/25 07:26 Pulse Oximetry 98 07/24/25 07:26 Oxygen Delivery Method Room Air 07/24/25 07:26 Oxygen Flow Rate 0 07/24/25 07:26 Pain Level 0 07/24/25 07:26 Intake & Output 07/23/25 07/24/25 07/24/25 23:59 11:59 23:59 Intake Total 650 / 880 120 / 600 480 / 600 Output Total 675 / 1175 401 / 401 Balance -25 / -295 -281 / 199 480 / 199 Weight 69.218 kg Intake: IV 250 / 250 Oral 400 / 630 120 / 600 480 / 600 Output: Urine 675 / 1175 400 / 400 Stool Other: Urine Color Yellow Straw Straw Urine Appearance Clear Clear Urine Odor Strong Strong Stool Size Moderate Stool Characteristics Formed Brown Data Completed and Pending Labs on day of discharge: Labs from last 24 hours 07/24/25 05:33 WBC 9.52 RBC 4.37 Hgb 14.2 Hct 41.6 MCV 95 MCH 32.5 MCHC 34.1 RDW 13.5 Plt Count 176 MPV 10.5 Immature Gran % 0.3 Neutrophils % 71.0 Lymphocytes % 18.0 Monocytes % 8.6 Eosinophils % 1.7 Basophils % 0.4 Nucleated RBC % 0.0 Absolute Neutrophils 6.76 H Absolute Lymphocytes 1.71 Absolute Monocytes 0.82 H Absolute Eosinophils 0.16 Absolute Basophils 0.04 Sodium 141 Potassium 4.1 Chloride 104 Carbon Dioxide 24.4 Anion Gap 12.6 H BUN 24 H Creatinine 1.4 H Est GFR (CKD-EPI 2020) 49.87 Glucose 104 Calcium 9.6 Magnesium 2.2 PFSH All Active Problems (Updated 07/23/25 @ 14:43 by Roya Larkin NP) Emphysema lung (Acute) CHF (congestive heart failure) (Chronic) Hypertensive urgency (Acute) Lumbosacral spondylosis without myelopathy (Acute) Right lumbar radiculitis (Acute) Sacroiliac joint dysfunction of right side (Acute) Unilateral post-traumatic osteoarthritis, right hip (Acute) Hx of skin cancer, basal cell (Acute) Neoplasm of unspecified behavior of bone, soft tissue, and skin (Acute) Pleural effusion (Acute) Medical History Seasonal affective disorder Encounter for routine adult health examination Followed by Sheila Fontanez MD Alteration in cardiovascular system Implantation to cardiovascular system. Clinically stable. Follows vascular annually. Impacted cerumen of right ear Pain of right hip joint Atherosclerosis of coronary artery without angina pectoris History of fracture History of recurrent pneumonia Ascites Dyspnea Carotid bruit Fatigue Osteogenesis imperfecta Senile osteoporosis Pain of right lower extremity Muscle pain Pain in thoracic spine Hip pain Osteoarthritis Benign prostatic hyperplasia Disorder of kidney and ureter Low blood pressure 12/2019 Stricture of artery Peripheral vascular disease Abdominal aortic aneurysm (AAA) without rupture Carotid artery stenosis Disorder of pericardium Hypertension Essential HTN. Not currently under control Polyneuropathy Developmental academic disorder Nicotine dependence Erectile dysfunction Depression recurrent major depression Hypokalemia Hyperlipidemia Surgical History History of heart artery stent Stent placement 2010 History of tonsillectomy History of cholecystectomy History of appendectomy History of elbow surgery left elbow fracture 60 years ago. Ulnar transposition left elbow within 5 years. Hx of hernia repair 2002 Social History Smoking/Tobacco Use Status: Former Tobacco Use Smoking risk assessment performed?: Yes Alcohol Intake: never Drug use: Never Substance use type: does not use Housing: house Do you feel safe at home: Yes Do you feel safe in your relationship?: Yes
--- NOTE | 2025-07-24 18:15 | PDOC.CMPRO ---
Date of service: 07/24/25 Time of Service: 18:15 Care Management Progress Note Progress Note Text Progress Note Text: Carlos was sitting up in bed and eating dinner when CM met with him. Carlos was in the room with him at this time. Both were pleasant and engage well in conversation. Per report, he will have an Echo and MRI. Carlos states he is feeling better and hopeful to return home soon. CM discussed HH services; Patient is agreeable to services. CM will continue to follow. Discharge Potential Discharge Needs: PCP F/U Appt Anticipated Barriers to Discharge: None Identified Patient/Family Education Needs: Review discharge instructions, discuss Ask Me Three Transportation: Private vehicle Plan: Anticipate Carlos will be discharged home with new PT services when medically cleared. He will follow up with Cardiology and his PCP and transport with family. CM will follow and continue to assess for discharge needs. Social Determinants of Health Screening Will the Patient Participate in the Screening?: Declined to provide Problems where you live: no known problems
--- NOTE | 2025-07-24 18:32 | PGE_ITS ---
Date of Service Date of service: 07/24/25 Time of Service: 18:32 Assessment and Plan Assessment and plan (1) Hypertensive urgency: Status: Acute Assessment and plan: No need for permissive hypertension; Cr 1.4. Continue/adjust home antihypertensive medications. Optimize blood pressure regimen in the outpatient setting. Avoid clonidine due to bradycardia risk. Monitor vital signs and watch for symptoms of hypotension or worsening bradycardia. BP 170/61, HR 60 (2) CHF (congestive heart failure): Status: Chronic Assessment and plan: ProBNP 1100; lungs clear, no dependent edema Echo unchanged since last in 2022; EF 55% (3) Emphysema lung: Status: Acute Assessment and plan: Mild emphysema noted on CT 11/12/2018 Patient denies current nicotine use. On albuterol at home. No acute respiratory distress noted. Continue current respiratory medications, including albuterol as needed. Monitor for symptoms such as shortness of breath, wheezing, or increased sputum production. Consider outpatient pulmonary evaluation and/or spirometry if clinically indicated; recommend pulmonology consult. Reinforce avoidance of smoking and other respiratory irritants. (4) TIA (transient ischemic attack): Status: Acute Assessment and plan: Patient experienced right-sided weakness, a fall, dizziness, and transient blurry vision, all of which have since resolved. Metoprolol dose was reduced yesterday; labs are normal. 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 Tele-neurology recommends full-dose aspirin, continuation of atorvastatin 80 mg and Plavix 75 mg daily, and prompt vascular surgery follow-up. Vascular surgery has been consulted and plans an outpatient visit on Thursday. Request PT and Speech see pt. Pt has b een followed by PT and speech has now been ordered. He has not trouble speaking or swallowing. Subjective Subjective Patient reports: no new complaints, tolerating liquids well, tolerating a regular diet, voiding w/o difficulty, bowel movement and afebrile; denies no flatus, diarrhea, nausea, vomiting or shortness of breath Interval history since last seen: Patient awake, alert, states he is feeling much better today. Vision has returned to normal (complained of blurred vision and inability to see the TV or read signs yesterday). Exam Narrative Exam Narrative: * HEENT: Normocephalic, atraumatic. Mucous membranes moist. Oropharynx clear. * Neck: No lymphadenopathy, no JVD, no thyromegaly. * Cardiovascular: Regular rate and rhythm. No murmurs, rubs, or gallops. * Pulmonary: Clear to auscultation bilaterally, good air exchange. * Abdomen: Soft, nontender, nondistended. No surgical scars. * Extremities: No clubbing, cyanosis, or edema. * Neurologic: No abnormal movements, tremors, or deficits noted Objective Last Vital Signs Temp 36.5 C 07/24/25 07:26 Pulse 69 07/24/25 09:33 Resp 17 07/24/25 07:26 BP 104/70 07/24/25 09:33 Pulse Ox 98 07/24/25 07:26 Laboratory Results - last 24 hr 07/24/25 05:33 WBC 9.52 RBC 4.37 Hgb 14.2 Hct 41.6 MCV 95 MCH 32.5 MCHC 34.1 RDW 13.5 Plt Count 176 MPV 10.5 Immature Gran % 0.3 Neutrophils % 71.0 Lymphocytes % 18.0 Monocytes % 8.6 Eosinophils % 1.7 Basophils % 0.4 Nucleated RBC % 0.0 Absolute Neutrophils 6.76 H Absolute Lymphocytes 1.71 Absolute Monocytes 0.82 H Absolute Eosinophils 0.16 Absolute Basophils 0.04 Sodium 141 Potassium 4.1 Chloride 104 Carbon Dioxide 24.4 Anion Gap 12.6 H BUN 24 H Creatinine 1.4 H Est GFR (CKD-EPI 2020) 49.87 Glucose 104 Calcium 9.6 Magnesium 2.2 Time Spent with Patient Time Spent with Patient: 35-49 minutes Time was spent: preparing to see the patient(eg.review tests), ordering medications,tests, procedures, referring, communicating with other health home care chaplain, indepentently interpreting results, counseling the patient and care coordination
[2025-07-24 19:02] VITALS: BP 111/65; PULSE 60; RESP 18; TEMP 36.6; O2SAT 98
[2025-07-24] MEDS: Atorvastatin 40 MG TAB 80 MG PO (19:43)
[2025-07-24 22:26] VITALS: BP 136/53; PULSE 67; RESP 16; TEMP 36.8; O2SAT 97
[2025-07-24] MEDS: Enoxaparin 40 MG/0.4 ML SYR SC (23:07)
--- NOTE | 2025-07-25 | DI.US_ITS ---
Exam(s) US CAROTID EXAM: US CAROTID CLINICAL HISTORY: cva. TECHNIQUE: Ultrasound carotids performed using grayscale, color-flow, and spectral Doppler imaging. COMPARISON: US US CAROTID from 12/15/2022 FINDINGS: RIGHT CAROTID ARTERY: Plaque: There is marked calcific plaque seen in the right carotid bulb. There is a stenosis of at least 80 percent. Velocity elevation: None. LEFT CAROTID ARTERY: Plaque: There is marked calcific plaque seen in the left carotid bulb with up to 70 percent stenosis. Velocity elevation: None. VERTEBRAL ARTERIES: Antegrade flow. Measurements: R Bulb: 91.1cm/s PS / 23.5cm/s ED R CCA: 49.1cm/s PS / 10.2cm/s ED R ECA: 152.2cm/s PS / 0cm/s ED R ICA Prox: 132.6cm/s PS / 30.3cm/s ED R ICA Mid: 83.2cm/s PS / 20.7cm/s ED R ICA Distal: 74.6cm/s PS /19.7cm/s ED R Vert: 129.7cm/s PS / 34.4cm/s ED R SVR: 2.7 R DVR: 3 L Bulb: 89.3cm/s PS / 12.1cm/s ED L CCA: 54.5cm/s PS / 9.7cm/s ED L ECA: 117.4cm/s PS / 15cm/s ED L ICA Prox: 83.2cm/s PS / 26.8cm/s ED L ICA Mid: 55.7cm/s PS / 11.3cm/s ED L ICA Distal: 64.4cm/s PS / 18.5cm/s ED L Vert: 56.5cm/s PS / 8.6cm/s ED L SVR: 1.6 L DVR: 1.2 IMPRESSION: 1. Marked areas of calcific plaque particularly in the carotid bulbs, right greater than left. Visually, there appears to be at least 80 percent stenosis in the right carotid bulb and up to 70 percent stenosis in the left carotid bulb. 2. 50-69 percent stenosis in the proximal right internal carotid artery. 3. No hemodynamically significant velocity elevations are seen on the left. Criteria for Carotid Stenosis: Normal: ICA PSV <125 cm/s no plaque or intimal thickening is visible. <50% stenosis: ICA PSV <125 cm/s and plaque or intimal thickening is visible. 50-69% stenosis: ICA PSV is 125-250 cm/s and plaque is visible. >70% stenosis to near occlusion: ICA PSV >250 cm/s with visible plaque and luminal narrowing. DATA REPOSITORY:
[2025-07-25 02:18] VITALS: BP 143/90; PULSE 72; RESP 16; TEMP 36.6; O2SAT 97
[2025-07-25] MEDS: Pantoprazole 40 MG TABCR PO (06:06)
[2025-07-25 06:41] LABS: Abs Immature Grans 0.04 10^3/uL (0.0-0.06); HCT 42.1 % (40.0-50.0); HGB 14.6 g/dL (13.5-17.5); Immature Grans % 0.4 %; MCH 32.3 pg (27.0-33.0); MCHC 34.7 % (32.0-36.0); MCV 93 fL (80-95); MPV 10.4 fL (8.0-11.0); Platelet Count 218 10^3/uL (130-400); RBC 4.52 10^6/uL (4.36-5.78); RDW 13.2 % (11.8-14.1); RDW-SD 45.2 fL; WBC 9.88 10^3/uL (4.4-10.8)
[2025-07-25 07:06] LABS: ALT 22 U/L (16-63); AST 38 U/L (15-37); Albumin 4.0 g/dL (3.4-5.0); Alkaline Phosphatase 104 U/L (46-116); BUN 26 mg/dL (7-18); Bilirubin, Total 0.9 mg/dL (0.2-1.0); Calcium 9.4 mg/dL (8.5-10.1); Calculated LDL 71 mg/dL (<100); Chloride 103 mmol/L (98-107); Cholesterol 135 mg/dL (<200); Glucose 100 mg/dL (74-106); HDL Cholesterol 32 mg/dL (>or=40); Magnesium 2.0 mg/dL (1.8-2.4); Potassium 4.0 mmol/L (3.5-5.1); Sodium 141 mmol/L (136-145); Total Protein 7.9 g/dL (6.4-8.2); Triglyceride 163 mg/dL (<150)
[2025-07-25 07:20] VITALS: BP 124/78; PULSE 74; RESP 17; TEMP 37.3; O2SAT 98
[2025-07-25 07:24] LABS: Anion Gap 12.3 mmol/L (3-11); CO2 25.7 mmol/L (21.0-32.0)
--- NOTE | 2025-07-25 07:27 | NUR.NOTE ---
Access chart to reconcile EKG orders with EKG's in [facility]. Duplicate order cancelled. Nursing Note:
[2025-07-25 07:38] LABS: Estimated GFR 49.87 (mL/min/1.73m2)
[2025-07-25] MEDS: Clopidogrel 75 MG TAB PO (08:32)
[2025-07-25] MEDS: Calcium Carbonate 1.5 GM TAB PO (08:32)
[2025-07-25] MEDS: hydroCHLOROthiazide 12.5 MG TAB 25 MG PO (08:32)
[2025-07-25] MEDS: Omega-3 Fatty Acids 1000 MG CAP PO (08:32)
[2025-07-25] MEDS: Aspirin E.C. 325 MG TABEC PO (08:32)
[2025-07-25] MEDS: Multivitamin TAB 1 TAB PO (08:33)
[2025-07-25] MEDS: Losartan 50 MG TAB PO (08:33)
[2025-07-25] MEDS: Sertraline 100 MG TAB 150 MG PO (08:33)
[2025-07-25] MEDS: Metoprolol CR 25 MG TABCR 12.5 MG PO (08:33)
[2025-07-25] MEDS: Isosorbide Mononitrate 30 MG TABCR PO (08:34)
--- NOTE | 2025-07-25 09:56 | CMDISCH_ITS ---
Date of service: 07/25/25 Time of Service: 17:32 LACE Index Scoring Tool Questions: Length of Stay (in days): 3 Was the patient admitted via the E.D.?: Yes E.D. Visits: 1 Answers: Total Score: 7 Risk of Readmission: Low Risk Care Management Discharge Plan Reason for Hospitalization: HTN Urgency Discharge Plan: Carlos will be discharged home with new PT services today. He will follow up with his community providers, vascular and discharge plan of ashleigh reveles. He will transport via private vehicle by his son. Patient/Family Education Needs: Review of discharge instructions, activity, limitations, and plan of care. Discuss ask me three. Services Needed at Discharge: Home Health Care Services
[2025-07-25 11:17] VITALS: BP 156/76; PULSE 64; RESP 17; TEMP 37.3; O2SAT 98
--- NOTE | 2025-07-25 12:02 | PT.INTREAT ---
PT Notes Visit Reasons: HTN Urgency Date: 07/25/25 am session SUBJECTIVE: Pt in bed when approached for therapy . He states he is feeling like he does not have any energy today as compared to yesterday. He agreed to participate with therapy session despite feeling of no energy. OBJECTIVE: ? PAIN: none VITALS: Supine 150/81 heart rate 64 Sit 137/108 heart rate 72 ( ROJELIO Lugo notified and assessed pt) Stand 144/89 heart rate 85 (ROJELIO Diaz present) Therapeutic Activities 45176 : Direct one-on-one instruction in dynamic activities to improve functional performance. ?? BED MOBILITY/TRANSFERS? Rolling L/R: I Supine-sit: I ? Sit-supine: I ? Sit-stand: I? Stand-sit: I ? Provided skilled cues and instruction on performance and technique throughout. GAIT? Assistive Device: FWW? Weight bearing: FWB Assist: SBA? Distance:?200 feet x 1? Deviation: Stoop forward posture, fast natty, walking too far from FWW. Stairs: Step over step bilateral handrail SBA, 6 steps x2, 4 steps x3? ASSESSMENT: Despite elevated BP ROJELIO Diaz present and recommended to continue with session. Patient able to ambulate 200 feet with FWW and perform stairs prior to going to procedure. If cleared by MD medically for discharge patient appears safe at this time PLAN: possible d/c home later this afternoon. If he remains, will continue to work on functional mobility per POC. TREATMENT CODE/TIME: 24917/1130?1154 . DISCHARGE RECOMMENDATION: HHPT
--- NOTE | 2025-07-25 13:50 | CHAPLAIN ---
Carlos was resting in bed when I visited. He was very pleasant and easily engaged in conversation. He thinks he may be discharged today, but hasn't heard that officially. Fanny Mckeon RN, from [facility] Rehab came into visit Carlos, along with another nurse from her department. Carlos said his son will be again today after work. According to Care Management notes, Carlos's three years ago and one of his three sons unexpectedly about a year ago. I will continue to visit if he isn't discharged.
[2025-07-25 15:16] VITALS: BP 139/84; PULSE 72; RESP 17; TEMP 36.7; O2SAT 98
--- NOTE | 2025-07-25 15:32 | CMPROGNOTE_ITS ---
Date of service: 07/25/25 Time of Service: 15:33 Care Management Progress Note Progress Note Text Progress Note Text: Carlos was lying down when CM met with him. He was pleasant and willing to engage in conversation. ACADEMIC SERVICES COORDINATOR consult ordered. Per report, it is recommended that Carlos follow up with vascular surgery on an outpatient setting due to occluded vessels. Carlos states he is appreciative of the care he is receiving. CM discussed HH PT services; Patient is agreeable to services. CM will continue to follow. Discharge Potential Discharge Needs: PCP F/U Appt Anticipated Barriers to Discharge: None Identified Patient/Family Education Needs: Review discharge instructions, discuss Ask Me Three Transportation: Private vehicle Plan: Anticipate Carlos will be discharged home with new HH PT services when medically cleared. He will follow up with Cardiology and his PCP and transport with kim mejia. CM will follow and continue to assess for discharge needs. Social Determinants of Health Screening Will the Patient Participate in the Screening?: Declined to provide Problems where you live: no known problems
--- NOTE | 2025-07-25 15:54 | PT.INTREAT ---
PT Notes Visit Reasons: HTN Urgency Date: 07/25/25 SUBJECTIVE: Pt in bed when approached for therapy this afternoon, agreed to participating with therapy session. OBJECTIVE: ? PAIN: none VITALS: monitored by nsg. Therapeutic Activities 41567 25 min: Direct one-on-one instruction in dynamic activities to improve functional performance. ?? BED MOBILITY/TRANSFERS? Rolling L/R: I Supine-sit: I ? Sit-supine: I ? Sit-stand: I? Stand-sit: I ? Provided skilled cues and instruction on performance and technique throughout. GAIT? Assistive Device: FWW? Weight bearing: FWB Assist: SBA? Distance:?300' x 2? Deviation: Stoop forward posture, fast natty, walking too far from FWW. Stairs: Step over step bilateral handrail SBA, 6 steps x4, 4 steps x6 ? ASSESSMENT:? no c/o lightheadedness this pm. He is strong and safe to go home once medically cleared. PLAN: possible d/c home later this afternoon. If he remains, will continue to work on functional mobility per POC. TREATMENT CODE/TIME: 25 min. [id number] (2:35-3:00pm). DISCHARGE RECOMMENDATION: HHPT
--- NOTE | 2025-07-25 16:34 | SP_ITS ---
Date of service: 07/25/25 Time of Service: 15:45 Subjective Speech Language Pathology - Inpatient Clinical (Bedside) Swallow Evaluation Cognitive-Communication Evaluation Start time: 15:45 End time: 16:25 Total patient contact: 40 min Referred by: Roya Larkin NP Hospitalist Referral Type: Routine Consult: Swallow, Cognitive-Communication Precautions: Standard, Full Code Reason for Referral/HPI: Carlos is an 85 y/o M w/ historoy of mild emphysema, history of recurrent pneumonia, CHF, HTN, nicotine dependence, HLD, hypokalemia, history of multiple stent placements. He presented to the ED with SOB, numbness/paresthesia while scrubbing his floor. He states I just didn't feel right, so presented to ED. Admitted to hospitalist service with hypertensive urgency vs TIA. Teleneurology service consulted and recommended TEAM ASSEMBLER evaluation. TEAM ASSEMBLER IMPRESSIONS & RECOMMENDATIONS: Patient appears with WFL speech, swallow, and language function. He does present with mild cognitive impairment as evidenced by score of 20/30 on SLUMS cognitive screen, symbol cancellation, and clock draw tasks, but suspect this is his baseline. He is largely oriented to self/situation and uses tools spontaneously as appropriate for date/time, etc. Given mild, likely stable nature of impairment, and because his family sees him on a daily basis, suspect he is safe to return home with no further TEAM ASSEMBLER services, however, his family or home health should ensure that he is taking his medications every day. 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 RECOMMENDATIONS Diet modification is indicated as follows for the purpose of reduced mastication abilities (DENTITION). Diet Recommendations: ? SOLIDS: 6-Soft & Bite-Sized Solids LIQUIDS: 0-Thin Liquids MEDICATIONS: Whole With 0-Thin Liquids RISK MANAGEMENT: Level of Assistance/Supervision: Independent Positioning and environment: Up to chair Oral hygiene BID/2x per day Using friction with toothbrush on all oral structures as tolerated Strategies/Adaptations/Assistive Equipment: Alternate intake of liquids and solids FURTHER INPATIENT TEAM ASSEMBLER SERVICES: No further TEAM ASSEMBLER services indicated Re-refer as indicated if medical status changes. Discharge Recommendations: No further TEAM ASSEMBLER services indicated/Please re-refer as needed SUBJECTIVE: Patient received: alert/awake. Agreeable to evaluation. Pain Reported 0/10 Baseline Reported Function: Patient denies swallowing difficulty prior to admission and eats a regular diet at baseline. Patient reports some mild memory challenges at baseline, but nothing that he perceives as below average for his age. He uses calendar, phone, etc to stay oriented to date ever since he retired. OBJECTIVE Patient positioning: Up to chair/90 degrees Oral care: Reported completed this date Respiratory status: Room air, tolerates well Orientation/Mental status: Oriented to self, Oriented to situation, Oriented to day, Oriented to year, Oriented to location, appears to be a reliable ophthalmic tech, recall of recent events is intact. Speech: WFL voice, articulation, respiration, intensity, resonance, phonation Language: WFL divergent naming per UMS exam. Conversational speech is WFL with appropriate and detailed responses to complex clinician questions, not requiring redirection or repetition. Grammar/syntax is adequately diverse, accurate, no apparent word-finding difficulties in conversation. [facility] Mental Status Examination ([facility]) Orientation: 3/3 Delayed Recall with Interference: 5/5 Numeric calculation and registration: 1/3 Verbal Fluency: 3/3 Registration and digit span: /2 Clock draw: 11/22 (minor issues with spacing, patient only kiara one clock hand. Visual spatial and executive function: 2/2 Quetsions about a short story: 01/24 Oral Mechanism Examination: Dentition: Partial natural dentition (only 4-5 teeth total on bottom, edentulous upper, patient states he has dentures on the way Oral mucosa: WFL? Cranial Nerve Assessment: CN V ? Trigeminal Facial Sensation WNL Jaw Strength/ROM WNL ?WNL CN VII- Facial WNL labial ROM, strength, coordination. WNL lingual sensation WNL CN IX ? Glossopharyngeal WNL palatal elevation with phonation. No evidence of nasal emissions WNL CN X ? Vagus WNL Vocal quality and volume. Strong/sharp volitional cough WNL CX XII ? Hypoglossal WNL lingual ROM, strength, coordination WNL PO Intake: Trials Assessed: IDDSI 0 Thin Liquids IDDSI 7EC Easy to Chew Solid Oral Phase Findings: WFL / Difficulty chewing Pharyngeal Phase Findings: WFL ? [place] Swallow Protocol Results: PASS Complete/uninterrupted without s/sx aspiration Education Provided to: Nursing Patient Physician Topics Addressed: overt s/sx to monitor for re: potential aspiration of food / liquids, cognitive/communication PLAN: No further TEAM ASSEMBLER services indicated at this time. Please re-refer as needed.
--- NOTE | 2025-07-25 17:21 | DSE_ITS ---
Date of service: 07/25/25 Time of Service: 17:22 DS: Diagnosis Discharge Diagnosis (1) Hypertensive urgency: Status: Acute (2) CHF (congestive heart failure): Status: Chronic (3) Emphysema lung: Status: Acute (4) TIA (transient ischemic attack): Status: Acute Discharge Plan Disposition Patient Disposition: Home W/Home Health Services Condition: Fair Discharge Details Reason For Visit: HTN Urgency Admit Date/Time: 07/22/25 22:15 Admit Provider: Geo Noyola Attending Provider: Geo Noyola Primary Care Provider: Sheila Fontanez V Hospital Course Hospital Course: 85-year-old male with history of hypertension, coronary artery disease, CHF, and prior endovascular repair of aortic aneurysm presented with worsening shortness of breath and right sided paresthesia. Despite multiple antihypertensives in the ED, blood pressure remained elevated (>180 mmHg systolic). Troponins remained flat; BNP was 1109. CTA head/neck and MRI brain revealed significant atherosclerotic disease but no acute infarct. CTA showed 70?80% right carotid stenosis, 50% left, and left vertebral artery occlusion with distal reconstitution. The patient denied chest pain but reported mild dyspnea. Hospital Course Patient admitted for hypertensive urgency and CHF management. Antihypertensives were optimized: metoprolol decreased to 12.5 mg daily due to bradycardia, and hydrochlorothiazide increased to 25 mg daily. Tele-neurology was consulted given vascular findings?recommendations included increasing aspirin to 325 mg daily, continuing clopidogrel, and checking lipid panel. Triglycerides 163 total cholesterol 135 LDL 71 and HDL 32. Echocardiogram revealed EF 55% with no wall motion abnormalities. Vascular surgery was consulted for carotid and vertebral disease. No acute neurological deficits were noted. I spoke with Dr. Rios @ [facility] vascular surgery and he recommended the patient be discharged to home and they will see him in the clinic this week. He agreed with the recommendations from teleneurology and we will continue the aspirin 325 mg daily, plavix 75 mg daily and atorvastatin 80 mg daily. Patient remained hemodynamically stable and was discharged home in improved condition. Pertinent Results * BNP: 1109 * Troponins: Flat (17 38 55 ng/L) * Creatinine: 1.4 (baseline ~1.2) * CTA Head/Neck: 70?80% right carotid stenosis, 50% left; left vertebral occlusion, distal reconstitution * MRI Brain: Chronic microvascular ischemic changes, no acute infarct * Echocardiogram: EF 55%, no wall motion abnormality (1) Hypertensive Urgency ? Acute * Restarted home antihypertensives. * Decreased metoprolol to 12.5 mg daily. * Increased HCTZ to 25 mg daily. * Avoid clonidine due to bradycardia. * Outpatient follow-up for medication optimization. (2) Congestive Heart Failure ? Chronic * Echo with preserved EF (55%). * Monitor weights and symptoms. * Continue home CHF regimen. (3) Carotid and Vertebral Artery Disease * Continue dual antiplatelet therapy (aspirin 325 mg + clopidogrel). * Vascular surgery follow-up. (They will call patient with appointment) * Lipid management and BP control. Discharge Medications * Aspirin 325 mg daily * Clopidogrel 75 mg daily * Metoprolol succinate 12.5 mg daily * Hydrochlorothiazide 25 mg daily * Continue home medications as appropriate (losartan, statin, sertraline, etc.) Follow-Up * Primary Care: within 1 week * Cardiology: for CHF management and medication titration * Vascular Surgery: carotid/vertebral disease evaluation this week Condition on Discharge Stable, BP improved, no acute distress, neurologically intact. Disposition Home with outpatient follow-up and home health PT per recommendation of in patient PT.. Home Meds and New Rx's Prescriptions: New aspirin 325 mg Tablet,Delayed Release (Dr/Ec) 325 mg PO DAILY Qty: 30 3RF Continued metoprolol succinate 25 mg tablet extended release 24 hr 25 mg PO DAILY losartan 50 mg tablet 50 mg PO DAILY clopidogrel [Plavix] 75 mg tablet 75 mg PO DAILY acetaminophen 325 mg capsule 325 mg PO ONCE PRN isosorbide mononitrate 30 mg tablet extended release 24 hr 30 mg PO DAILY pantoprazole 40 mg tablet,delayed release (DR/EC) 40 mg PO DAILY multivitamin Tablet 1 tab PO DAILY sertraline 100 mg Tablet 150 mg PO DAILY nitroglycerin 0.4 mg Tablet, Sublingual 0.4 mg SUBLINGUAL Q5M PRN Patient Comments: prn calcium carbonate [Calcium 600] 600 mg calcium (1,500 mg) Tablet 600 mg PO BID glucosamine sulfate 500 mg Capsule 1,000 mg PO BID albuterol sulfate [Ventolin HFA] 90 mcg/actuation Hfa Aerosol Inhaler 2 puff INHALATION QID PRN Patient Comments: prn omega-3 fatty acids-vitamin E 1,000 mg Capsule 1 cap PO BID hydrochlorothiazide 12.5 mg tablet 12.5 mg PO QAM atorvastatin 80 mg tablet 80 mg PO DAILY Patient Comments: TAKE 1 TABLET BY MOUTH EVERY DAY Discontinued aspirin [Lo-Dose Aspirin] 81 MG tablet,delayed release (DR/EC) 81 mg PO DAILY Discharge Instructions Instructions: High blood pressure in adults, Carotid Artery Disease (DC) Additional Instructions: 1. Blood Pressure Monitoring * Check your blood pressure daily and keep a log. * Bring your readings to your next appointment. * If you experience chest pain, confusion, weakness, or vision changes, go to the Emergency Department immediately. 2. Heart Failure Management * Weigh yourself every morning at the same time. * Call your provider if your weight increases by more than 2?3 pounds in a day or 5 pounds in a week. * Limit salt intake to less than 2 grams per day.. 3. Medication Instructions * Take aspirin 325 mg and clopidogrel (Plavix) 75 mg daily. * Take metoprolol 12.5 mg daily, HCTZ 25 mg daily, and other home medications as directed. * Avoid ymax-jkg-epaivke cold or decongestant medicines unless cleared by your doctor. 4. Activity * Resume activity gradually as tolerated. * Avoid strenuous exertion until cleared by your provider. * Home Health physical therapy will call you and arrange to come visit you at your home. 5. Diet * Follow a low-sodium, heart-healthy diet (DASH or Mediterranean style). * Stay hydrated but avoid excessive fluid intake if you develop swelling or shortness of breath. Follow-Up Appointments * Primary Care Provider: within 1 week for blood pressure check and medication review. * Cardiology: for CHF management and further testing if needed. * Vascular Surgery: for carotid and vertebral artery disease evaluation (they will call you with an appointment). When to Seek Immediate Medical Attention Go to the nearest emergency department or call 911 if you experience: * Chest pain or pressure * Sudden shortness of breath * Weakness or numbness on one side * Sudden vision loss, confusion, or difficulty speaking * Severe dizziness or fainting Stand Alone Forms: Nursing Discharge Form Activity:: Activity as Tolerated Equipment/Supplies:: No Equipment Needed Diet:: As Tolerated Discharge Orders Discharge Orders: Discharge Order (Routine); Ordered 07/25/25 Ordered By: Roya Larkin DS: Summary Time Spent with Patient providing and/or coordinating discharge services: Greater than 30 minutes Status at Discharge Functional status at discharge: independent ambulation Overall status at discharge: patient is progressing back to baseline Mental Status: mental status grossly normal Speech and Movement: speech and movement normal Mood: congruent mood Affect: normal affect Exam Narrative Exam Narrative: * HEENT: Normocephalic, atraumatic. Mucous membranes moist. Oropharynx clear. * Neck: No lymphadenopathy, no JVD, no thyromegaly. * Cardiovascular: Regular rate and rhythm. No murmurs, rubs, or gallops. * Pulmonary: Clear to auscultation bilaterally, good air exchange. * Abdomen: Soft, nontender, nondistended. No surgical scars. * Extremities: No clubbing, cyanosis, or edema. * Neurologic: No abnormal movements, tremors, or deficits noted Psych Mental Status: mental status grossly normal Speech and Movement: speech and movement normal Mood: congruent mood Affect: normal affect DS: Data Vitals/I&O Vitals and I&O: Vital Signs Temperature 36.7 C 07/25/25 15:16 Temperature Source Temporal Artery Scan 07/25/25 15:16 Pulse 72 07/25/25 15:16 Pulse 76 07/22/25 23:40 Respiratory Rate 17 07/25/25 15:16 Respiratory Effort Normal 07/23/25 00:28 Respiratory Depth Normal 07/23/25 00:28 Respiratory Pattern Normal 07/23/25 00:28 Blood Pressure 139/84 07/25/25 15:16 Blood Pressure Mean 102 07/25/25 15:16 Pulse Oximetry 98 07/25/25 15:16 Oxygen Delivery Method Room Air 07/25/25 15:16 Oxygen Flow Rate 0 07/25/25 15:16 Pain Level 0 07/25/25 15:16 Intake & Output 07/24/25 07/25/25 07/25/25 23:59 11:59 23:59 Intake Total 580 / 700 220 / 340 120 / 340 Balance 580 / 299 220 / 340 120 / 340 Weight 68.2 kg Intake: Oral 580 / 700 220 / 340 120 / 340 Other: Urine Color Yellow Yellow Urine Appearance Clear Clear Urine Odor Normal Normal Comment pt. voids to the toilet with 1 person assist. voids independently Data Completed and Pending Labs on day of discharge: Labs from last 24 hours 07/25/25 06:20 WBC 9.88 RBC 4.52 Hgb 14.6 Hct 42.1 MCV 93 MCH 32.3 MCHC 34.7 RDW 13.2 Plt Count 218 MPV 10.4 Immature Gran % 0.4 Neutrophils % 68.4 Lymphocytes % 19.2 Monocytes % 8.9 Eosinophils % 2.7 Basophils % 0.4 Nucleated RBC % 0.0 Absolute Neutrophils 6.75 H Absolute Lymphocytes 1.90 Absolute Monocytes 0.88 H Absolute Eosinophils 0.27 Absolute Basophils 0.04 Sodium 141 Potassium 4.0 Chloride 103 Carbon Dioxide 25.7 Anion Gap 12.3 H BUN 26 H Creatinine 1.4 H Est GFR (CKD-EPI 2020) 49.87 Glucose 100 Calcium 9.4 Magnesium 2.0 Total Bilirubin 0.9 AST 38 H ALT 22 Alkaline Phosphatase 104 Total Protein 7.9 Albumin 4.0 Triglycerides 163 H Total Cholesterol 135 LDL Cholesterol, Calc 71 HDL Cholesterol 32 L PFSH All Active Problems (Updated 07/24/25 @ 18:37 by Roya Larkin NP) TIA (transient ischemic attack) (Acute) Emphysema lung (Acute) CHF (congestive heart failure) (Chronic) Hypertensive urgency (Acute) Lumbosacral spondylosis without myelopathy (Acute) Right lumbar radiculitis (Acute) Sacroiliac joint dysfunction of right side (Acute) Unilateral post-traumatic osteoarthritis, right hip (Acute) Hx of skin cancer, basal cell (Acute) Neoplasm of unspecified behavior of bone, soft tissue, and skin (Acute) Pleural effusion (Acute) Medical History Seasonal affective disorder Encounter for routine adult health examination Followed by Sheila Fontanez MD Alteration in cardiovascular system Implantation to cardiovascular system. Clinically stable. Follows vascular annually. Impacted cerumen of right ear Pain of right hip joint Atherosclerosis of coronary artery without angina pectoris History of fracture History of recurrent pneumonia Ascites Dyspnea Carotid bruit Fatigue Osteogenesis imperfecta Senile osteoporosis Pain of right lower extremity Muscle pain Pain in thoracic spine Hip pain Osteoarthritis Benign prostatic hyperplasia Disorder of kidney and ureter Low blood pressure 12/2019 Stricture of artery Peripheral vascular disease Abdominal aortic aneurysm (AAA) without rupture Carotid artery stenosis Disorder of pericardium Hypertension Essential HTN. Not currently under control Polyneuropathy Developmental academic disorder Nicotine dependence Erectile dysfunction Depression recurrent major depression Hypokalemia Hyperlipidemia Surgical History History of heart artery stent Stent placement 2010 History of tonsillectomy History of cholecystectomy History of appendectomy History of elbow surgery left elbow fracture 60 years ago. Ulnar transposition left elbow within 5 years. Hx of hernia repair 2002 Social History Smoking/Tobacco Use Status: Former Tobacco Use Smoking risk assessment performed?: Yes Alcohol Intake: never Drug use: Never Substance use type: does not use Housing: house Do you feel safe at home: Yes Do you feel safe in your relationship?: Yes Time Spent with Patient Time Spent with Patient: 70-84 minutes4 Time was spent: preparing to see the patient(eg.review tests), ordering medications,tests, procedures, referring, communicating with other health overnight caregiver, indepentently interpreting results, counseling the patient and care coordination
--- NOTE | 2025-07-26 12:23 | PDOC.HHF2F_ITS ---
Date of service: 07/25/25 Time of Service: 12:23 Home Health Referral Home Health Orders Clinical synopsis of why skilled professionals are needed: 85-year-old male with history of hypertension, coronary artery disease, CHF, and prior endovascular repair of aortic aneurysm presented with worsening shortness of breath and right sided paresthesia. Despite multiple antihypertensives in the ED, blood pressure remained elevated (>180 mmHg systolic). Troponins remained flat; BNP was 1109. CTA head/neck and MRI brain revealed significant atherosclerotic disease but no acute infarct. CTA showed 70?80% right carotid stenosis, 50% left, and left vertebral artery occlusion with distal reconstitution. The patient denied chest pain but reported mild dyspnea. Hospital Course Patient admitted for hypertensive urgency and CHF management. Antihypertensives were optimized: metoprolol decreased to 12.5 mg daily due to bradycardia, and hydrochlorothiazide increased to 25 mg daily. Tele-neurology was consulted given vascular findings?recommendations included increasing aspirin to 325 mg daily, continuing clopidogrel, and checking lipid panel. Triglycerides 163 total cholesterol 135 LDL 71 and HDL 32. Echocardiogram revealed EF 55% with no wall motion abnormalities. Vascular surgery was consulted for carotid and vertebral disease. No acute neurological deficits were noted. I spoke with Dr. Rios @ [facility] vascular surgery and he recommended the patient be discharged to home and they will see him in the clinic this week. He agreed with the recommendations from teleneurology and we will continue the aspirin 325 mg daily, plavix 75 mg daily and atorvastatin 80 mg daily. Patient remained hemodynamically stable and was discharged home in improved condition. Medical diagnosis necessitation home health referral: Hypertension; shortness of breath. Physical Therapist: Check all that apply Increase strength & endurance for safe mobility at home: Ordered To design/establish home maintenance program: Ordered Fall reduction therapy program for patient with history of frequent falls: Ordered Home safety evaluation and teaching/gait training including stair management (if applicable): Ordered Other: Recommended by inpatient PT Occupational Therapist: Evaluate and treat for patient unable to perform ADL/IADL/self-care: Ordered Upper extremity strengthening, range and motion: Ordered Battery Vent Plug Inserter: Assist with community resources: Ordered Assist with snf care planning: Ordered Home Bound Status Requires the aid of supportive device (check all that apply): Walker Describe why leaving home would require a considerable and taxing effort: Requires frequent rest periods and Safety Concerns: describe (FAll, syncope) Encounter Date and Reason: I certify that a FTF encounter for this patient was performed on July 26, 2025 and that such encounter was related to the primary reason the patient requires home health services. The encounter was conducted in the following manner: * By me as the certifying physician, SHOE SHANKER, PA or * By an inpatient physician, SHOE SHANKER or PA during an inpatient stay who communicated findings to me, Certification And Authentication I certify that I composed the above information based on my clinical judgment relating to this patient's medical condition and, if applicable, clinical findings communicated to me by the NPP or inpatient physician who performed the FTF encounter. Name of Provider that will be monitoring home health services: Sheila Fontanez
== END 2025-07-25 18:01 | disposition home health service (06) ==
LOC: ER 22:19 → MS 07-23 00:24
PROVIDERS: Admitting Provider Hospitalist; Emergency Provider Emergency Medicine; PCP Family Medicine; Responsible Provider Nurse Practitioner Family; Visit Provider Hospitalist
DX: I16.0 Hypertensive urgency (principal); I65.23 Occlusion and stenosis of bilateral carotid arteries; I65.02 Occlusion and stenosis of left vertebral artery; I11.0 Hypertensive heart disease with heart failure; I50.9 Heart failure, unspecified; I25.10 Atherosclerotic heart disease of native coronary artery without angina pectoris; R06.02 Shortness of breath; R20.2 Paresthesia of skin; I08.3 Combined rheumatic disorders of mitral, aortic and tricuspid valves; Z79.899 Other long term (current) drug therapy; Z87.891 Personal history of nicotine dependence; Z95.828 Presence of other vascular implants and grafts; M47.27 Other spondylosis with radiculopathy, lumbosacral region; I73.9 Peripheral vascular disease, unspecified; G62.9 Polyneuropathy, unspecified; E78.5 Hyperlipidemia, unspecified; F33.9 Major depressive disorder, recurrent, unspecified; Z95.5 Presence of coronary angioplasty implant and graft; R00.1 Bradycardia, unspecified; J43.9 Emphysema, unspecified; H53.8 Other visual disturbances; R42 Dizziness and giddiness; R53.1 Weakness
CPT/HCPCS: 00123; 36415; 36416; 70496; 70498; 80048; 80053; 80061; 82962; 85027; 87637; 92610; 93005; 96374; 96375; 97162; 97530; 99285; J1650; 70450; 70551; 71046; 81003; 81015; 83735; 83880; 84484; 85025; 92523; 93010; 93306; 93880; 99222; 99232; 99239; G0378; J0360; J1920; J1938; J2405; J3490

== ENCOUNTER 2025-08-17 08:00 | Outpatient (RCR) | payer SELFPAY ==
[2025-07-19 00:20] VITALS: BP 137/69; PULSE 53
[2025-07-20 08:09] VITALS: BP 142/64; PULSE 60
[2025-08-01 09:27] VITALS: BP 125/72; PULSE 62
[2025-08-03 08:11] VITALS: BP 132/76; PULSE 76
[2025-08-08 08:14] VITALS: BP 115/71; PULSE 78
[2025-08-10 08:23] VITALS: BP 109/64; PULSE 65
[2025-08-15 08:49] VITALS: BP 102/65; PULSE 83
[2025-08-17 08:00] VITALS: BP 100/62; PULSE 62; O2SAT 98
== END 2025-08-18 23:59 | disposition home or self-care (01) ==
LOC: CR 08:00
PROVIDERS: PCP Family Medicine; Visit Provider Internal Medicine Cardiovascular Disease
DX: R69 Illness, unspecified (principal)

== ENCOUNTER 2025-09-07 11:05 | Outpatient (REF) | payer MEDICARE, SELFPAY ==
[2025-09-07 16:02] LABS: Anion Gap 11.5 mmol/L (3-11); BUN 24 mg/dL (9-23); CO2 27.5 mmol/L (20.0-31.0); Calcium 9.6 mg/dL (8.3-10.6); Chloride 104 mmol/L (98-107); Glucose 126 mg/dL (74-106); Potassium 3.7 mmol/L (3.5-5.1); Sodium 143 mmol/L (136-145)
[2025-09-07 16:34] LABS: Hemoglobin A1C 5.0 % (<5.7)
== END 2025-09-07 11:06 | disposition home or self-care (01) ==
LOC: NCHCN 11:05
PROVIDERS: PCP Family Medicine; Visit Provider Family Medicine
DX: Z13.1 Encounter for screening for diabetes mellitus (principal); I10 Essential (primary) hypertension
CPT/HCPCS: 80048; 83036

== ENCOUNTER 2025-09-12 08:00 | Outpatient (RCR) | payer SELFPAY ==
[2025-08-19 00:24] VITALS: BP 100/62; PULSE 62
[2025-08-22 08:13] VITALS: BP 106/67; PULSE 61
[2025-08-24 08:16] VITALS: BP 123/74; PULSE 68
[2025-08-29 08:16] VITALS: BP 119/73; PULSE 75
[2025-08-31 08:11] VITALS: BP 125/70; PULSE 70
[2025-09-05 08:25] VITALS: BP 96/61; PULSE 72
[2025-09-12 08:39] VITALS: BP 109/64; PULSE 60
== END 2025-09-17 23:59 | disposition home or self-care (01) ==
LOC: CR 08:00
PROVIDERS: PCP Family Medicine; Visit Provider Internal Medicine Cardiovascular Disease
DX: R69 Illness, unspecified (principal)

== ENCOUNTER 2025-10-17 08:00 | Outpatient (RCR) | payer SELFPAY ==
[2025-09-18 00:19] VITALS: BP 109/64; PULSE 60
[2025-09-19 08:11] VITALS: BP 101/61; PULSE 60
[2025-09-21 08:32] VITALS: BP 109/68; PULSE 70
[2025-09-26 08:44] VITALS: BP 125/71; PULSE 58
[2025-09-28 08:50] VITALS: BP 117/66; PULSE 65
[2025-10-03 08:21] VITALS: BP 121/71; PULSE 65
[2025-10-05 08:30] VITALS: BP 127/72; PULSE 66
[2025-10-10 08:39] VITALS: BP 118/66; PULSE 63
[2025-10-17 08:45] VITALS: BP 112/75; PULSE 74
== END 2025-10-18 23:59 | disposition home or self-care (01) ==
LOC: CR 08:00
PROVIDERS: PCP Family Medicine; Visit Provider Internal Medicine Cardiovascular Disease
DX: R69 Illness, unspecified (principal)